=== PATIENT | male | born 1975 | race Caucasian/White ===

== ENCOUNTER 2018-01-04 08:07 | Day surgery (SDC) | payer OTHER, SELFPAY ==
[2018-01-03 09:19] VITALS: BMI 25.0
--- NOTE | 2018-01-04 17:42 | CL.D_ITS ---
Patient Name: BRANDAN TOLLIVER Study Date: 01/04/2018 Performing: Joshua Diaz MD Ht: 66.92 inches 170 cm : 1975 Wt: 160.94 lbs 73 kg Age: 42 Gender: male BSA: 1.84 PROCEDURE(S) PERFORMED [id number]/[id number]/LV CLINICAL PROFILE AND INDICATIONS Indications: Suspected CAD Heart Failure: None Stress/Imaging Standard Exercise Stress Test: Yes Result: Indeterminant CAD Presentations: No Sxs, no angina. CONCLUSIONS Non obstructive coronary arteries Normal LV size, wall motion,and systolic function RECOMMENDATIONS Medical therapy DESCRIPTION OF PROCEDURE The patient arrived to the procedure lab. The risks and benefits of the procedure as well as a full d escription of our services here and current unavailability of surgical backup were fully explained to the patient and/or their significant other prior to the catheterization. The Timeout was completed, verifying the correct patient and procedure. The patient's procedural site was prepped and draped in the usual fashion. Local anesthetic was given subcutaneously to right radial region with Lidocaine 2% . Using a modified Seldinger technique, arterial access was obtained via the right radial artery, a 6 Fr sheath was inserted. Right Coronary Artery selective angiography was then performed in multiple v iews using a 5 Fr. 4.0 [place] catheter. Left Coronary Artery selective angiography was performed in mu ltiple views using a 5 Fr. 4.0 [place] catheter. Left Ventriculography was performed in HEBERT projection using a 5 Fr. Pigtail catheter. LV to AO pullback pressures were then recorded.The arterial sheath wa s pulled and a TR Band was applied for hemostasis CORONARY ANGIOGRAPHY DOMINANCE: Right Dominant LEFT HEART ASSESSMENT Left Ventricular Ejection Fraction: by LV Gram 75 % Normal LV wall motion Normal Left Ventricular systolic function LEFT MAIN: Angiographically normal LEFT ANTERIOR DECENDING ARTERY: MID LAD: Myocardial bridging CIRCUMFLEX ARTERY: Angiographically normal RIGHT CORONARY ARTERY: Angiographically normal COMPLICATIONS No Complications PROCEDURE MEDICATIONS Versed 1 mg IV Fentanyl 50 mcg IV Versed 1 mg IV Versed 1 mg IV Aspirin (325mg) 1 Tabs PO @ 01/04/2018 08:22:48 Heparin diluted in 23cc Heparinized saline. Patient given 10cc IA of this solution. 01/04/2018 10:20: 03 Verapamil 2.5mg, Ntg 100mcgs, 2000 units of Heparin diluted in 23cc Heparinized saline. Patient give n 10cc IA of this solution. 01/04/2018 10:20:03 SUMMARY OF HEMODYNAMIC DATA Time AIR REST ECG 08:35:50 AO 91/67 (79) SA 10:22:48 LV 85/-1, 6 10:31:14 LV 101/-2, 5 10:31:20 LV 109/-10, 9 10:32:21 LV 111/-10, 10 10:32:28 LVp 107/-8, 12 10:32:32 AOp 101/59 (79) 10:32:37 Signed By Joshua Diaz MD On 01/04/2018 10:43:07 Joshua Diaz MD
== END 2018-01-04 13:50 | disposition home or self-care (01) ==
LOC: CLSP 08:08
PROVIDERS: Family Provider Internal Medicine; PCP Internal Medicine; Referring Provider Internal Medicine Cardiovascular Disease; Visit Provider Internal Medicine Cardiovascular Disease
DX: R94.31 Abnormal electrocardiogram [ECG] [EKG] (principal); E78.00 Pure hypercholesterolemia, unspecified; R06.09 Other forms of dyspnea
CPT/HCPCS: 93005; 93458; 99152; 99153; J7040; C1769; C1894; Q9967

== ENCOUNTER → 2018-02-20 06:48 | Outpatient (CLI) | payer OTHER, SELFPAY ==
--- NOTE | 2018-02-21 08:33 | PFT ---
INTRODUCTION: The patient is a 42-year-old male that presents for pulmonary function testing secondary to a diagnosis of exercise-induced bronchospasm. Respiratory therapy reports good patient effort. Bronchodilators were used during testing. INTERPRETATION: Forced expiration spirometry demonstrates no evidence of a large airways obstructive ventilatory defect. There was no significant response to aerosolized bronchodilators. Spirograms are of good quality and plateau normally. The respiratory flow volume loop appears normal. Body plethysmography was performed and reveals lung volumes to be within normal limits. Diffusing capacity is also within normal limits. IMPRESSION: Grossly normal pulmonary function testing.
== END ==
PROVIDERS: Family Provider Internal Medicine; PCP Internal Medicine; Referring Provider Internal Medicine Cardiovascular Disease; Visit Provider Internal Medicine Cardiovascular Disease
DX: J45.990 Exercise induced bronchospasm (principal)
CPT/HCPCS: 94060; 94726; 94729

== ENCOUNTER → 2018-03-13 06:52 | Outpatient (CLI) | payer OTHER, SELFPAY ==
--- NOTE | 2018-03-14 09:42 | BRONCHALL ---
Bronchoprovocation Challenge - Bronchoprovocation Challenge Bronchoprovocation Challenge: BRONCHOPROVOCATION STUDY INTERPRETATION Brief HPI: Patient is a 42 year old male, currently under the care of Dr. Olvera, who presents to [facility] for a bronchoprovocation study secondary to diagnosis of bronchospasm. Respiratory therapist reports good effort and reproducible results. Interpretation: Initial spirometry showed no large airways obstructive ventilatory defect. The patient was then given increasingly concentrated doses of methacholine in a stepwise fashion, using a modified ATS protocol. The patient?s maximum reduction in FEV1 was 3 percent predicted. Impression: Negative Bronchoprovocation study. This is NOT consistent with the diagnosis of asthma.
--- OUTSIDE RECORDS SUMMARY | 2018-04-29 02:17 | XMS RPT_ITS ---
:1975 Author Organization OHIP Support Name Relationship Address Phone MARY MEJIA Unavailable [address] + [place] [address] WOOCI Unavailable [address] + [place] [address] MEJIA, MARY Unavailable [address] + [place] [address] WOOCI Unavailable [address] + [place] [address] MEJIA, MARY Unavailable [address] + [place] [address] WOOCI Unavailable [address] + [place] [address] MEJIA, MARY Unavailable [address] + [place] [address] WOOCI Unavailable [address] + [place] [address] MEJIA, MARY Unavailable [address] + [place] [address] WOOCI Unavailable [address] + [place] [address] MEJIA, MARY Unavailable [address] + [place] [address] WOOCI Unavailable [address] + [place] [address] MEJIA, MARY Unavailable [address] + [place] [address] WOOCI Unavailable [address] + [place] [address] MEJIA, MARY Unavailable [address] + [place] [address] WOOCI Unavailable [address] + [place] [address] NILS MEJIAA Unavailable [address] + [place] [address] WOOCI Unavailable [address] + [place] [address] DOLLESA Unavailable [address] + [place] [address] WOOCI Unavailable [address] [facility] [address] + [place] [address] Care Team Providers Name Role Phone KAITY MALIK Attending Unavailable HELENA, KAITY E Referring Unavailable HELENA, KAITY E Referring Unavailable HELENA, KAITY E Referring Unavailable HELENA, KAITY E Referring Unavailable HELENA, KAITY E Attending Unavailable HELENA, KAITY E Referring Unavailable TALAMPAS, HARDIK D Attending Unavailable HELENA, KAITY E Referring Unavailable HELENA, KAITY E Referring Unavailable HELENA, KAITY E Attending Unavailable TALAMPAS, HARDIK D Referring Unavailable JOSEPH EDWARDS ([facility]) Referring Unavailable JOSEPH EDWARDS ([facility]) Attending Unavailable Robert Crandall Attending Unavailable Latisha Muse Referring Unavailable HumbertoMicha Attending Unavailable Talampas, Hardik Referring Unavailable Talampas, Hardik Primary Care Unavailable Micha Paul Attending Unavailable Talampas, Hardik Referring Unavailable Talampas, Hardik Primary Care Unavailable Emily, Joshua Attending Unavailable Emily, Joshua Referring Unavailable Talampas, Hardik Primary Care Unavailable ASSESSMENT, HEALTH RISK Attending Unavailable Talampas, Hardik Primary Care Unavailable Micha Paul Attending Unavailable Talampas, Hardik Referring Unavailable Emily, Columbia Attending Unavailable Emily, Columbia Referring Unavailable [place], Kaity Attending Unavailable [place], Kaity Referring Unavailable Talampas, Hardik Primary Care Unavailable Geoffrey Luciano D.O. Attending Unavailable Helean, Kaity Referring Unavailable Helena, Kaity Attending Unavailable [place], Kaity Referring Unavailable Talampas, Hardik Primary Care Unavailable PROBLEMS PROBLEMS DATE TYPE CONDITION / CODE ATTENDING STATUS SOURCE 03/22/2018 Unknown J45.990 - Exercise Robert Crandall Active [place] induced bronchospasm / Community J45.990(ICD-10) Hospital Repository 01/11/2018 Active Unknown / UNK(Unknown) TALAMPAS, HARDIK Active [facility] Main [place] Repository 01/25/2018 Unknown R94.31 - Abnormal EmilyJoshua fraser Active [place] electro[facility]ogram Community [ECG] [EKG] / Hospital R94.31(ICD-10) Repository 12/28/2017 Active Abnormal NA Active [facility] Main (ECG) (EKG) / [place] R94.31(ICD-10) Repository 12/28/2017 Active Other forms of dyspnea NA Active [facility] / R06.09(ICD-10) Clinic Main [place] Repository PROCEDURES PROCEDURES No Procedure Records FoundRESULTS RESULTS BRONCHOPROVOCATION CHALLENGE Observed: 03/15/2018 Status: F Source: [place] 6:02 AM [facility] REPOSITORY [facility] Pulmonary Services/Neurology [address] [place] [address] MR#: [id number] Acct: [id number] Name: BRANDAN MEJIA Rep #: [id number] : 1975 42 From: Robert Crandall MD Referring Dr: Helena ALARCONQuincy Status: REG I Ordering Dr: Date: Location: [facility] Sex: M C Bronchoprovocation Challenge - Bronchoprovocation Challenge Bronchoprovocation Challenge: BRONCHOPROVOCATION STUDY INTERPRETATION Brief HPI: Patient is a 42 year old male, currently under the care of Dr. Olvera, who presents to [facility] for a bronchoprovocation study secondary to diagnosis of bronchospasm. Respiratory therapist reports good effort and reproducible results. Interpretation: Initial spirometry showed no large airways obstructive ventilatory defect. The patient was then given increasingly concentrated doses of methacholine in a stepwise fashion, using a modified ATS protocol. The patient s maximum reduction in FEV1 was 3 percent predicted. Impression: Negative Bronchoprovocation study. This is NOT consistent with the diagnosis of asthma. 03/15/18601 <Electronically signed by Robert Crandall MD> Date Robert Crandall MD CC: Date Dictated: 03/14/18941 Date Transcribed: 03/14/18941 Linux Architect: AARON Signed PROGRESS Observed: 03/14/2018 Status: COMPLETED Source: [place] 10:09 AM [facility] REPOSITORY HNO ID: [id number] Author: Kaity Malik Service: (none) Author Type: Physician Type: Progress Notes Filed: 03/14/2018 2:46 PM Note Text: PERTINENT CARDIAC HISTORY LVH - septal HINDS Angina LAD bridge - mild HL ADHERENCE TO GUIDELINES DONY-I or ARB for HF with prior LVEF<40 (NQF 0081) - N/A ASA or Plavix for ASHD (NQF 0067) - N/A Beta александр for ASHD with prior AR or prior LVEF<40 (NQF 0070) - N/A Beta александр for HF with prior LVEF<40 (NQF 0083) - N/A DONY-I or ARB for ASHD with DM or prior LVEF<40 (NQF 0066) - N/A Statin therapy for ASHD or FHL or DM - met BMI documented and plan if >25 (NQF 0421) - lifestyle recommendation form Tobacco use screening and referral (NQF 0028) - lifestyle recommendation form Recommendation for whole food, plant based diet - lifestyle recommendation form CLINICAL IMPRESSION/PLAN: Brandan Mejia has exercised intolerance which is of uncertain etiology. There is no convincing evidence that he has reactive bronchospasm. He reports that he will be wearing a recirculating mask that has very little potential for leak. There is no convincing evidence for ischemia. I recommend that we consider his exercise intolerance to be unrecognized deconditioning. I've encouraged him to begin an aerobic training program and have released him to return to work without restriction. If his symptoms recur, pulmonary consultation may be helpful. I reminded him that he should have periodic Echocardiograms to assess his left ventricular septal hypertrophy. I recommend follow-up in our office in 8 months. Written and verbal health teaching given to patient, patient verbalizes understanding and agrees with treatment plan. DIAGNOSIS FOR VISIT: Exercise intolerance HISTORY OF PRESENT ILLNESS Brandan Mejia returns for follow-up of his exercise intolerance. He has undergone PFT and methacholine challenge. We have not yet received copies, but he reports he was told that the studies were normal. He would like to return to [employer]. He's had no symptoms of shortness of breath with moderate activity he is doing. He denies chest pain. He's had no orthopnea, edema, syncope, palpitations, TIAs, amaurosis or claudication. ALLERGIES: ALLERGIES No Known Allergies CURRENT OUTPATIENT MEDICATIONS: atorvastatin (LIPITOR) 10 mg tablet Take 0.5 tablets by mouth once daily. meloxicam (MOBIC) 7.5 mg tablet Take 1-2 tablets by mouth once daily. for pain. Take with food. PHYSICAL EXAMINATION: VITAL SIGNS: BP 126/83 Pulse 73 Wt 170 lb 14.4 oz (77.5kg) Chest: Clear to auscultation. Trachea is midline. Air entry is equal. Cardiac: Regular rhythm. S1 and S2 are normal. PMI is nondisplaced. There are no murmurs, rubs or gallops. Carotids are brisk without bruits. JVP is less than 10 cm. Abdomen: Soft and nontender. There are no pulsatile masses or bruits. No liver enlargement. Bowel sounds are active. Extremities: No edema. Pulses are intact and symmetrical. I reviewed all of his studies to date, including stress tests, angiogram and echocardiogram Electronically Signed: Kaity Malik MD March 14, 2018 10:09 AM CC: MD MAYRA Cornelius Observed: 03/14/2018 Status: COMPLETED Source: [place] 9:45 AM [facility] REPOSITORY Office Visit (CAWSTR) BRANDAN MEJIA ([id number]) 1975 M Date Time Provider Department 03/14/18 9:45 AM KAITY MALIK CAWSTR During your visit today, we recorded the following information about you: Pulse Blood pressure Weight 73/minute 126/83 77.5 kg Kaity Malik MD 03/14/2018 2:46 PM Signed PERTINENT CARDIAC HISTORY LVH - septal HINDS Angina LAD bridge - mild HL ADHERENCE TO GUIDELINES DONY-I or ARB for HF with prior LVEF<40 (NQF 0081) - N/A ASA or Plavix for ASHD (NQF 0067) - N/A Beta александр for ASHD with prior AR or prior LVEF<40 (NQF 0070) - N/A Beta александр for HF with prior LVEF<40 (NQ 0083) - N/A DONY-I or ARB for ASHD with DM or prior LVEF<40 (NQ 0066) - N/A Statin therapy for ASHD or FHL or DM - met BMI documented and plan if >25 (NQ 0421) - lifestyle recommendation form Tobacco use screening and referral ([facility] 0028) - lifestyle recommendation form Recommendation for whole food, plant based diet - lifestyle recommendation form CLINICAL IMPRESSION/PLAN: Brandan Mejia has exercised intolerance which is of uncertain etiology. There is no convincing evidence that he has reactive bronchospasm. He reports that he will be wearing a recirculating mask that has very little potential for leak. There is no convincing evidence for ischemia. I recommend that we consider his exercise intolerance to be unrecognized deconditioning. I've encouraged him to begin an aerobic training program and have released him to return to work without restriction. If his symptoms recur, pulmonary consultation may be helpful. I reminded him that he should have periodic Echocardiograms to assess his left ventricular septal hypertrophy. I recommend follow-up in our office in 8 months. Written and verbal health teaching given to patient, patient verbalizes understanding and agrees with treatment plan. DIAGNOSIS FOR VISIT: Exercise intolerance HISTORY OF PRESENT ILLNESS Brandan Mejia returns for follow-up of his exercise intolerance. He has undergone PFT and methacholine challenge. We have not yet received copies, but he reports he was told that the studies were normal. He would like to return to [employer]. He's had no symptoms of shortness of breath with moderate activity he is doing. He denies chest pain. He's had no orthopnea, edema, syncope, palpitations, TIAs, amaurosis or claudication. ALLERGIES: ALLERGIES No Known Allergies CURRENT OUTPATIENT MEDICATIONS: atorvastatin (LIPITOR) 10 mg tablet Take 0.5 tablets by mouth once daily. meloxicam (MOBIC) 7.5 mg tablet Take 1-2 tablets by mouth once daily. for pain. Take with food. PHYSICAL EXAMINATION: VITAL SIGNS: BP 126/83 Pulse 73 Wt 170 lb 14.4 oz (77.5kg) Chest: Clear to auscultation. Trachea is midline. Air entry is equal. Cardiac: Regular rhythm. S1 and S2 are normal. PMI is nondisplaced. There are no murmurs, rubs or gallops. Carotids are brisk without bruits. JVP is less than 10 cm. Abdomen: Soft and nontender. There are no pulsatile masses or bruits. No liver enlargement. Bowel sounds are active. Extremities: No edema. Pulses are intact and symmetrical. I reviewed all of his studies to date, including stress tests, angiogram and echocardiogram Electronically Signed: Kaity Malik MD March 14, 2018 10:09 AM CC: MD Kaity Cornelius MD 03/14/2018 10:09 AM Signed LIFESTYLE CHANGE A healthy lifestyle is the most important component of your overall treatment plan. Please give serious thought to the following areas and commit to making group home changes. EAT A WHOLE FOOD, PLANT BASED DIET The nutrition your body gets is more important than the medicine you take. What matters most is the overall way you eat. We encourage you to minimize the use of animal products (which include dairy and all meats except fatty fish) and use whole, unprocessed plant foods to provide your protein, vitamins and other nutrients. We have a lot of information to share with you on this topic. This is not a diet. It is a way of life that you will keep with you. EXERCISE REGULARLY It is not important to spend hours in the gym, lifting weights and perspiring heavily. A total of 2-3 hours per week of aerobic (causing you to be moderately short of breath) exercise is sufficient to improve your health. Talk to us before you begin a new exercise program, if you have heart disease or experience shortness of breath or chest pain. REDUCE STRESS Chronic emotional and physical stress leads to disease. Ways of reducing stress include meditation, visualization, prayer, yoga and other forms of relaxation therapy. Consistency is the ponce. Find a technique that works for you and do it every day. CULTIVATE RELATIONSHIPS Loneliness and isolation have a major negative impact on health. Seek out others who can love, care for and nurture you. Avoid hurtful relationships. MAINTAIN IDEAL BODY WEIGHT The best way to do this is to do all the things above. Our bodies naturally find the right weight if we keep moving and feed ourselves the right food. If your BMI is greater than 25, we strongly recommend a referral to a weight management program. Please speak to us or your family physician about available programs. AVOID NICOTINE IN ALL FORMS This includes all tobacco products, whether chewed, smoked, vaped, or rubbed on the skin. Smoking cessation programs, which can make use of tobacco substitutes, medications to suppress cravings and behavior management, are available. Please contact your family physician about programs in your area. Referring Provider: KAITY MALIK [[id number]] Allergies As of Date: 03/14/2018 (No Known Allergies) Date Reviewed: 03/14/2018 Reviewed by: Russel Madrid RN - Fully Assessed Reason for Visit: Recheck [92] Primary Visit Diagnosis:HINDS (dyspnea on exertion) [R06.09] Prescriptions as of 03/14/2018 Sig: ATORVASTATIN 10 MG TABLET Take 0.5 tablets by mouth onc* MELOXICAM 7.5 MG TABLET Take 1-2 tablets by mouth onc* Patient not taking: Reported on 12/28/2017 Problem List As Of Date 03/14/2018 Noted Resolved Lumbago [M54.5] INVALID FOR*07/14/2016 OTHER ATOPIC DERMATITIS [L20.89] More... ALLERGIC RHINITIS NOS [J30.9] More... Mixed hyperlipidemia [E78.2] INVALID FOR*04/14/2010 ANEMIA NORMOCYTIC [D64.9] INVALID FOR*07/14/2016 Porokeratosis [Q82.8] INVALID FOR*07/14/2016 Hypercholesterolemia [E78.00] INVALID FOR* More... Migraine without aura [G43.009] INVALID FOR*07/14/2016 Other instructions from your clinician: LIFESTYLE CHANGE A healthy lifestyle is the most important component of your overall treatment plan. Please give serious thought to the following areas and commit to making group home changes. EAT A WHOLE FOOD, PLANT BASED DIET The nutrition your body gets is more important than the medicine you take. What matters most is the overall way you eat. We encourage you to minimize the use of animal products (which include dairy and all meats except fatty fish) and use whole, unprocessed plant foods to provide your protein, vitamins and other nutrients. We have a lot of information to share with you on this topic. This is not a diet. It is a way of life that you will keep with you. EXERCISE REGULARLY It is not important to spend hours in the gym, lifting weights and perspiring heavily. A total of 2-3 hours per week of aerobic (causing you to be moderately short of breath) exercise is sufficient to improve your health. Talk to us before you begin a new exercise program, if you have heart disease or experience shortness of breath or chest pain. REDUCE STRESS Chronic emotional and physical stress leads to disease. Ways of reducing stress include meditation, visualization, prayer, yoga and other forms of relaxation therapy. Consistency is the ponce. Find a technique that works for you and do it every day. CULTIVATE RELATIONSHIPS Loneliness and isolation have a major negative impact on health. Seek out others who can love, care for and nurture you. Avoid hurtful relationships. MAINTAIN IDEAL BODY WEIGHT The best way to do this is to do all the things above. Our bodies naturally find the right weight if we keep moving and feed ourselves the right food. If your BMI is greater than 25, we strongly recommend a referral to a weight management program. Please speak to us or your family physician about available programs. AVOID NICOTINE IN ALL FORMS This includes all tobacco products, whether chewed, smoked, vaped, or rubbed on the skin. Smoking cessation programs, which can make use of tobacco substitutes, medications to suppress cravings and behavior management, are available. Please contact your family physician about programs in your area. Follow-up and Disposition History Recorded Letter Text Kaity Malik M.D. Department of Cardiology [address] [place] [id number] Brandan Mejia March 14, 2018 1975 To whom it may concern: Brandan Mejia is under my care and has been released to return to full duties, without restrictions. Sincerely, Kaity Malik MD Encounter Status:Closed by KAITY MALIK MD on 03/14/18 PULMONARY FUNCTION Observed: 02/21/2018 Status: F Source: [place] TEST 8:35 AM [facility] REPOSITORY [facility] Pulmonary Services/Neurology [address] [place] [address] MR#: [id number] Acct: [id number] Name: BRANDAN MEJIA Rep #: [id number] : 1975 42 From: Geoffrey Luciano DO Referring Dr: Kaity Malik MD Status: REG CLI Ordering Dr: Date: Location: PSN Sex: M C INTRODUCTION: The patient is a 42-year-old male that presents for pulmonary function testing secondary to a diagnosis of exercise-induced bronchospasm. Respiratory therapy reports good patient effort. Bronchodilators were used during testing. INTERPRETATION: Forced expiration spirometry demonstrates no evidence of a large airways obstructive ventilatory defect. There was no significant response to aerosolized bronchodilators. Spirograms are of good quality and plateau normally. The respiratory flow volume loop appears normal. Body plethysmography was performed and reveals lung volumes to be within normal limits. Diffusing capacity is also within normal limits. IMPRESSION: Grossly normal pulmonary function testing. 02/21/18834 <Electronically signed by Geoffrey Luciano DO> Date Geoffrey Luciano DO CC: Kaity Malik MD; Hardik Cerda MD Date Dictated: 02/21/18832 Date Transcribed: 02/21/18832 Linux Architect: STEPAN Machado [place] CARDIAC PERF Observed: 02/14/2018 Status: F Source: [place] STRESS/EXERCISE 10:10 AM [facility] REPOSITORY * * *Final Report* * * DATE OF EXAM: Feb 14 2018 10:10AM [facility] 0004 - [place] CARDIAC PERF STRESS/EXERCISE / PROCEDURE REASON: Exercise induced bronchospasm [J45.990] * * * * Physician Interpretation * * * * PATIENT: Name: BRANDAN MEJIA Age: 42 years Gender: M CONCLUSIONS: 1. SPECT Perfusion Study: Normal. 2. There is no scintigraphic evidence for inducible ischemia. 3. No evidence of scarred myocardium. 4. Good functional capacity for age and gender. 5. Left ventricle is normal in size. The left ventricle systolic function is normal. 6. Right ventricle is normal in size. The right ventricle systolic function is normal. 7. This is a low risk scan. Gated Stress FBP LVEF % 79 Prior Study Comparison No prior nuclear cardiology exam available for comparison. Nuclear Med Report:1-Day [id number] Exercise Stress Gated SPECT: Myocardial perfusion imaging was performed at rest 30 to 60 minutes following the IV injection of Tc-99m tetrofosmin. One minute prior to peak exercise, the patient was injected IV with Tc-99m tetrofosmin. Gated post stress tomographic imaging was performed 10 to 20 minutes later. See administered doses below. [facility] Date of service: 02/14/2018 8:05:54 AM Ordering Physician: Requesting Physician: KAITY MALIK Indication: CP - ECG interpretable AND able to exercise with interm/high pre-test probability and Assessment for suspected CAD. Interpreting physician: Chema Liz MD Patient History: History of dyslipidemia. Medications currently taking are statins. Height: 170.18 cm BSA: 1.92 m? Weight: 78.02 kg BMI: 26.9 kg/m? CT Dose Reduction Employed: No. Exam Type: Rest Stress Radiopharm: Tc-99m Tetrofosmin Tc-99m Tetrofosmin Dosage(mCi): 11.9 32.0 Atten Correction: not performed not performed Stress Agent: Treadmill Resting Heart Rate: 76 bpm Resting Blood Press: 125/76 mmHg Image Quality The overall study imaging quality was deemed to be good. FINDINGS: Left Ventricle Wall Motion: Stress IR:3D - All scored segments are normal. Rest IR:3D - Gated Stress FBP - Reversibility - Stress IR:3D Stress IR:3D Gated Stress FBP LVEF: 79 % ED Volume: 75 ml ES Volume: 16 ml TID: 0.88 Perfusion Findings Stress IR:3D - Summed Score=0 All scored segments reflect normal perfusion. Rest IR:3D - Summed Score=0 All scored segments reflect normal perfusion. Stress IR:3D Rest IR:3D Summed Score=0 Summed Score=0 LEFT VENTRICLE The left ventricle is normal in size. Left ventricular systolic function is normal. Right Ventricle The right ventricle is normal in size. Right ventricle systolic function is normal. Stress Test Findings: There is no scintigraphic evidence for inducible ischemia. There is no evidence of scarring. The stress test was terminated due to the following: Fatigue. Peak HR 176 bpm. (100 % MPHR) (13.7 METS) Peak BP 178 mmHg/80 mmHg Patient experienced no symptoms during stress. Stress ECG normal ST segment response. Stress complications: none. The left ventricular cavity size is unchanged with stress. Final Linux Architect: ALVARO Transcribe Date/Time: Feb 14 2018 8:05A Dictated by : CHEMA LIZ MD This examination was interpreted and the report reviewed and electronically signed by: CHEMA LIZ MD on Feb 14 2018 10:51AM EST [id number] Observed: 02/14/2018 Status: COMPLETED Source: [place] 10:01 AM [facility] REPOSITORY HNO ID: [id number] Author: Pati Knight (Rcep) Service: (none) Author Type: Production Line Mechanic Type: Progress Notes Filed: 02/14/2018 10:02 AM Note Text: Preliminary report complete; results under imaging tab. JORGE Alvarez CNNURSE Observed: 02/14/2018 Status: COMPLETED Source: [place] 9:30 AM [facility] REPOSITORY Nurse Visit (CAWSTR) BRANDAN MEJIA ([id number]) 1975 M Date Time Provider Department 02/14/18 9:30 AM [facility] During your visit today, we recorded the following information about you: JORGE Alvarez 02/14/2018 10:02 AM Signed Preliminary report complete; results under imaging tab. JORGE Alvarez Referring Provider: KAITY MALIK [[id number]] Allergies As of Date: 02/14/2018 (No Known Allergies) Date Reviewed: 01/16/2018 Reviewed by: Russel Madrid RN - Fully Assessed Primary Visit Diagnosis:Chest pain, unspecified type [R07.9] Other Visit Diagnosis:HINDS (dyspnea on exertion) [R06.09] Prescriptions as of 02/14/2018 Sig: ATORVASTATIN 10 MG TABLET Take 0.5 tablets by mouth onc* MELOXICAM 7.5 MG TABLET Take 1-2 tablets by mouth onc* Patient not taking: Reported on 12/28/2017 Problem List As Of Date 02/14/2018 Noted Resolved Lumbago [M54.5] INVALID FOR*07/14/2016 OTHER ATOPIC DERMATITIS [L20.89] More... ALLERGIC RHINITIS NOS [J30.9] More... Mixed hyperlipidemia [E78.2] INVALID FOR*04/14/2010 ANEMIA NORMOCYTIC [D64.9] INVALID FOR*07/14/2016 Porokeratosis [Q82.8] INVALID FOR*07/14/2016 Hypercholesterolemia [E78.00] INVALID FOR* More... Migraine without aura [G43.009] INVALID FOR*07/14/2016 Encounter Status:Closed by Pati ARREDONDO on 02/14/18 PROGRESS Observed: 02/14/2018 Status: COMPLETED Source: [place] 8:36 AM [facility] REPOSITORY [facility] ID: [id number] Author: Brandan Christianson [place] Hospital Service: (none) Author Type: (none) Type: Progress Notes Filed: 02/14/2018 9:48 AM Note Text: RADIOLOGY SERVICE PROGRESS NOTE SERVICE DATE: 02/14/2018 SERVICE TIME: 8:36 AM PATIENT IDENTITY VERIFICATION COMPLETED USING TWO (2) METHODS: Patient confirmed name and Date of verbally. PATIENT GENDER DATA: .male : No ALLERGIES: Reviewed and unchanged MEDICATIONS REVIEWED: No PATIENT RELEVANT IMPLANT DATA REVIEWED: Not Applicable CREATININE: Creatinine Date Value Ref Range Status 12/28/2017 0.96 0.73 - 1.22 mg/dL Final 07/06/2016 0.95 0.73 - 1.22 mg/dL Final eGFR-All Other Races Date Value Ref Range Status 12/28/2017 >60 . Final Comment: eGFR (Estimated GFR) Units of measure: mL/min/1.73 meters squared eGFR is derived from the reexpressed MDRD Study equation using the following parameters: serum creatinine, age, gender and race. The creatinine assay has been calibrated to be traceable to IDMS. An eGFR <60 mL/min/1.73m2 for >3 months is consistent with chronic kidney disease. Refer to KDOQI guidelines for clinical interpretation. In patients with unstable renal function, e.g. those with acute kidney injury, the eGFR may not accurately reflect actual GFR. eGFR- Date Value Ref Range Status 12/28/2017 >60 Final P.O.C.T. RESULTS: N/A February 14, [address] PERFORMED: No IV SITE: Ambulatory: A peripheral IV was started in the Right antecubital site with a Angio cath: 22 gauge. POST EXAM PIV STATUS: Discontinued PROCEDURE TYPE: NM Stress: 11.9mCi Ma19h-Kffcidl was administered IV for Rest Imaging at 08:35. 32.0 mCi Qi59s-Nleogxq was administered IV for Stress Imaging at 09:47 by Brandan Christianson [facility]. PATIENT DISCHARGED TO: Ambulatory patient, left NM department area. A Diagnostic radioactive procedure has taken place, with no further precautions necessary other than routine body substance precautions. More information regarding radiation safety can be found using this link: [email or web address] SIGNATURE: Brandan Christianson [facility] PATIENT NAME: Brandan Mejia DATE: February 14, 2018 TIME: 8:36 AM PAGER/CONTACT #: [id number] Observed: 02/14/2018 Status: COMPLETED Source: [place] 12:00 AM [facility] REPOSITORY Telephone (CAWSTR) BRANDAN MEJIA ([id number]) 1975 M Date Time Provider Department 02/14/18 KAITY MALIK During your visit today, we recorded the following information about you: Russel Madrid RN 02/14/2018 1:22 PM Signed ----- Message from Kaity Malik sent at 02/14/2018 1:17 PM EST ----- Stress test shows no evidence that the minor blood vessel kink on the front of the heart causes any problem with circulation. Has he had his pulmonary function study yet? Please make follow-up appointment for one month MD Russel Ashley RN 02/14/2018 1:29 PM Signed Patient notified of results and provider's instructions. Patient verbalizes understanding. Pulmonary study was done yesterday. Transferred pt to schedule follow up in 1 month Russel Madrid RN 02/15/2018 3:21 PM Signed Left message to call office. 02/15/2018 3:21 PM Russel Madrid RN 02/18/2018 9:44 AM Signed Pt is at [facility] having pulmonary testing today Russel Malik MD 02/20/2018 4:12 PM Signed Please request copy of report ;MD Russel Ashley RN 02/22/2018 8:35 AM Signed Pulmonary report placed in box to review Russel aMdrid RN 02/22/2018 3:27 PM Signed Called [facility] pulmonary dept, per tech pt needs to schedule for methacholine testing. Per tech the pulmonary testing pt has completed and methacholine testing are completed on 2 different visits. The order is in the computer and ready, pt should call scheduling at [phone]. Russel Madrid RN 02/22/2018 3:28 PM Signed Patient notified he needs to call [facility] to schedule methacholine testing at [phone]. Patient verbalizes understanding. Russel Malik MD 02/25/2018 10:33 AM Signed Noted. Kaity Malik MD Allergies As of Date: 02/14/2018 (No Known Allergies) Date Reviewed: 01/16/2018 Reviewed by: Russel Madrid RN - Fully Assessed Reason for Visit: Results [95] Prescriptions as of 02/14/2018 Sig: ATORVASTATIN 10 MG TABLET Take 0.5 tablets by mouth onc* MELOXICAM 7.5 MG TABLET Take 1-2 tablets by mouth onc* Patient not taking: Reported on 12/28/2017 Problem List As Of Date 02/14/2018 Noted Resolved Lumbago [M54.5] INVALID FOR*07/14/2016 OTHER ATOPIC DERMATITIS [L20.89] More... ALLERGIC RHINITIS NOS [J30.9] More... Mixed hyperlipidemia [E78.2] INVALID FOR*04/14/2010 ANEMIA NORMOCYTIC [D64.9] INVALID FOR*07/14/2016 Porokeratosis [Q82.8] INVALID FOR*07/14/2016 Hypercholesterolemia [E78.00] INVALID FOR* More... Migraine without aura [G43.009] INVALID FOR*07/14/2016 Encounter Status:Closed by RUSSEL MADRID RN on 02/18/18 OFFICE VISIT REPORT Observed: 01/22/2018 Status: F Source: [place] 7:46 AM [place] [address] [place] [place] [address] OFFICE VISIT Date of Service: 01/21/18 MR#: [id number] Acct: [id number] Patient: BRANDAN MEJIA Rep #: [id number] : 1975 Provider: Micha TORRES Age/Sex: 42/M Location: [facility] Status: Signed Intake Vital Signs01/21/18 Height 5 ft 8 in 01/21/18 Weight: 175 lb Intake Visit Reasons: WFD PHYSICAL Allergies No Known Allergies Allergy (Verified 04/11/16 12:58) Medications Atorvastatin Calcium [Lipitor] 10 mg PO QHS 04/11/16 [History Confirmed 01/03/18] clopidogrel 75 mg tablet 75 mg PO DAILY #30 tab 12/31/17 [Rx Confirmed 01/04/18] Meloxicam 7.5 mg PO DAILY 01/03/18 [History Confirmed 01/03/18] Office Procedures PPD Procedure TB Med Used: Tuberculin PPD 5 tub. unit/0.1 mL intradermal injection solution was administered Lot number: [id number] Sports Photographer: Sanofi Pasteur date: 05/15/20 PPD Location: Left forearm Date PPD Placed: 01/21/18 Time PPD Placed: 08:00 PPD Placed By: Linsey Peres Office Meds Flucelvax Quad [id number] (PF) Performing Provider: MELISSA Vallejo Administered by: Linsey Peres on 01/21/18 14:18 Dose Route Admin Location Lot Number Expiration Date NDC Sports Photographer 60 mcg IM R deltoid [id number] 09/29/18 04670-759-65 SEQIRUS Assessment AND Plan Orders Orders: Medications Discontinued: Flucelvax Quad 0514-1711 (PF) (flu vac qs 2018(4 60 mcg (0.5 mL) IM ONCE 0.5 mL 0RF NS Z23 yr up)CD(PF)) Discontinued Reason: Office Med ication has been Documented as given 01/22/18 0746 <Electronically signed by Micha TORRES> Date Micha TORRES Cosigner Signature: Date (if applicable) CC: URINALYSIS, ROUTINE Collected: 01/21/2018 Status: F Source: [place] (DIPSTICK) 9:20 AM [facility] REPOSITORY Order Comment: How was Urine Obtained? CLEAN CATCH TYPE CODE TESTS RESULT OUT OF RANGE REFERENCE UNITS LAB L400.3000 Yellow COLOR Normal Yellow LAB L400.3050 Clear Normal CLARITY Clear LAB L400.3200 Normal mg/dl Normal GLUCOSE, UR Normal LAB L400.3300 Negative mg/dL Normal BILIRUBIN URINE Negative LAB L400.3400 Negative mg/dl Normal KETONE UR Negative LAB L400.3465 1.002-1.030 Normal SP.GR. DIPSTX 1.005 LAB L400.3550 5.0 - 8.0 pH UR Normal 7.0 LAB L400.3600 Negative mg/dl PROT Normal DIPSTX Negative LAB L400.3700 Normal mg/dl Normal UROBILI Normal LAB L400.3750 Negative Normal NITRITE UR Negative LAB L400.3780 Negative /ul Normal OCCULT BLOOD-UR Negative LAB L400.3800 Negative /ul LEUK Normal ESTERASE Negative Performed By: #### L400.2010 #### [facility] [address] [place], [place], [address] CBC W/DIFF, AUTOMATED Collected: 01/21/2018 Status: F Source: [place] 9:20 AM [facility] REPOSITORY TYPE CODE TESTS RESULT OUT OF RANGE REFERENCE UNITS LAB L100.1000 4.4-11.0 K/mm3 Normal WBC 4.8 LAB L100.1200 4.6-6.2 M/mm3 Normal RBC 4.76 LAB L100.1300 13.0-16.5 g/dl Normal HGB 13.0 LAB L100.1400 40-54 % Normal HCT 40.9 LAB L100.1500 80-94 fL Normal MCV 85.9 LAB L100.1600 27.0-32.0 pg Normal MCH 27.3 LAB L100.1700 32-36 g/gl Low MCHC 31.8 LAB L100.1810 11.6-14.6 % Normal RDW CV 13.4 LAB L100.1820 35.1-43.9 fl Normal RDW SD 42.0 LAB L100.1900 150-450 K/mm3 Normal PLT 287 LAB L100.2000 6.2-12.0 fl Normal MPV 10.3 LAB L100.2100 47-70 % Normal NEUT% 58.2 LAB L100.2200 19-41 % Normal LY% 27.5 LAB L100.2300 0-10 % High MONO% 10.8 LAB L100.2400 0-5 % Normal EO% 3.1 LAB L100.2500 0-1 % Normal BASO% 0.2 LAB L100.2550 0.0-0.9 % Normal IM GRAN % 0.200 Result Comment: IG% - Immature Granulocytes (promyelocytes, myelocytes and metamyelocytes) > 1% indicates that a LEFT SHIFT is Present. LAB L100.2620 2.0-7.7 X10 3/uL Normal Absolute Neut 2.8 LAB L100.2720 0.83-4.51 X10 3/ul Normal Absolute Lymph 1.32 Performed By: #### L100.0100 #### [facility] [address] [place], [place], [address] BASIC METABOLIC Collected: 01/21/2018 Status: F Source: [place] PROFILE (BMP) 9:20 AM [facility] REPOSITORY TYPE CODE TESTS RESULT OUT OF RANGE REFERENCE UNITS LAB L501.0100 74-106 mg/dL Normal GLU 85 Result Comment: Please note revised GLUCOSE reference range effective 2017. LAB L501.1000 7-18 mg/dL Normal BUN 13 LAB L501.1100 0.70-1.30 mg/dL Normal CREAT,SERUM 0.94 Result Comment: The validity of the calculated GFR AND GFRAA in patients over 70 years has not been determined. Clinical correlation is essential. LAB L501.1110 >60 mL/min Normal EST GFR 93 Result Comment: Non- GFR Calc LAB L501.1115 >60 mL/min Normal EST GFR - AA 113 Result Comment: GFR Calc LAB L501.1300 10-20 RATIO Normal BUN/CRE 13.9 LAB L501.2200 8.5-10.1 mg/dL CA Normal 9.1 LAB L501.5300 136-145 mmol/L NA Normal 139 LAB L501.5600 3.5-5.1 mmol/L K Normal 4.0 LAB L501.5900 98-107 mmol/L CL Normal 102 LAB L501.6100 21.0-32.0 mmol/L Normal CO2 30.0 LAB L501.6200 5-15 Normal GAP 7 Performed By: #### L500.2500, L500.4100, L501.9910 #### [facility] [address] [place], [address] LIPID PROFILE Collected: 01/21/2018 Status: F Source: [place] 9:20 AM [facility] REPOSITORY TYPE CODE TESTS RESULT OUT OF RANGE REFERENCE UNITS LAB L501.4900 200 mg/dL Normal CHOL 152 Result Comment: <200 mg/dL Desirable 200-240 mg/dL Borderline >240 mg/dL High Risk LAB L501.5000 mg/dL Normal TRIG 131 Result Comment: The drugs N-Acetylcysteine and Metamizole may falsely depress this assay. Serum Triglycerides Reference Interval Normal <150 mg/dL Borderline high 150 - 199 mg/dL High 200 - 499 mg/dL Very High > or = 500 mg/dL LAB L501.6400 mg/dL Normal HDL 47 Result Comment: The drugs N-Acetylcysteine and Metamizole may falsely depress this assay. Reference Range HDL <40 mg/dL Low HDL Cholesterol HDL >or= 60 mg/dL High HDL Cholesterol LAB L501.6500 0-130 mg/dL Normal LDL 79 LAB L501.6600 5-40 mg/dL Normal VLDL 26 Performed By: #### L500.2500, L500.4100, L501.9910 #### [facility] [address] [place], [address] PSA,TOTAL - ANNUAL Collected: 01/21/2018 Status: F Source: [place] SCREEN 9:20 AM [facility] REPOSITORY TYPE CODE TESTS RESULT OUT OF RANGE REFERENCE UNITS LAB L501.9910 0.00-4.00 ng/mL Normal PSA,TOT 0.54 SCREEN Result Comment: This test was performed using the TPSA assay method for the kaleo chemistry system. Values obtained with different assay methods cannot be used interchangably. When changing PSA assays in the course of monitoring a patient, additional sequential testing should be carried out to confirm baseline values. Performed By: #### L500.2500, L500.4100, L501.9910 #### [facility] [address] [place], [place], [address] ABO RH BLOOD TYPE, Collected: 01/21/2018 Status: F Source: [place] PATIENT 9:20 AM [facility] REPOSITORY TYPE CODE TESTS RESULT OUT OF RANGE REFERENCE UNITS LAB B10.0800 AB Normal BLOOD POSITIVE TYPE GEL Performed By: #### B10.0010 #### [facility] [address] [place], [place], [address] PROGRESS Observed: 01/16/2018 Status: COMPLETED Source: [place] 1:49 PM [facility] REPOSITORY O ID: [id number] Author: Kaity Malik Service: (none) Author Type: Physician Type: Progress Notes Filed: 01/16/2018 5:42 PM Note Text: PERTINENT CARDIAC HISTORY LVH - septal HINDS Angina HL ADHERENCE TO GUIDELINES DONY-I or ARB for HF with prior LVEF<40 (NQF 0081) - N/A ASA or Plavix for ASHD (NQF 0067) - N/A Beta александр for ASHD with prior AR or prior LVEF<40 (NQF 0070) - N/A Beta александр for HF with prior LVEF<40 (NQF 0083) - N/A DONY-I or ARB for ASHD with DM or prior LVEF<40 (NQF 0066) - N/A Statin therapy for ASHD or FHL or DM - met BMI documented and plan if >25 (NQF 0421) - lifestyle recommendation form Tobacco use screening and referral (NQF 0028) - lifestyle recommendation form Recommendation for whole food, plant based diet - lifestyle recommendation form CLINICAL IMPRESSION/PLAN: Brandan Mejia has exercise intolerance and chest discomfort which occur at maximum physical 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 He has an area of systolic coronary artery narrowing. Had we done an imaging stress test we could have evaluated whether this has the potential of causing any ischemia. However, he just had a non-imaging stress test. I recommended we proceed with treadmill nuclear stress test. I would like to see him achieve 17-18 mets of activity and have normal perfusion to the anterior wall. It is possible that he has some exercise induced asthma or possibly asthma related to smoking inhalation. He will be scheduled for pulmonary function studies with methacholine challenge if baseline study is normal. He has mild concentric LVH with some septal prominence. This has not changed qualitatively over the last 10 years, but we discussed the possibility that he has an early form of hypertrophic myopathy. I've recommended that he have a follow-up echocardiogram in a few years. There was no evidence of dynamic outflow tract obstruction at the time of his echo. I personally performed Valsalva maneuver with him while we were taking supplemental echo pictures. Should there be evidence of progressive LVH, MRI scan may have some utility. I will see him on a to be arranged basis pending the outcome of these studies. 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 Written and verbal health teaching given to patient, patient verbalizes understanding and agrees with treatment plan. DIAGNOSIS FOR VISIT: Dyspnea on exertion Chest pain HISTORY OF PRESENT ILLNESS Brandan Mejia returns for follow-up of his recent angiogram. This disclosed patent coronaries. There was a small area of apparent systolic coronary artery narrowing in the mid LAD. The impingement did not exceed 30-50%. He has avoided extreme exertion. He is doing some exercise and tolerating this well. 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 He denies chest discomfort with moderate activity. He's had no orthopnea, edema, syncope, palpitations, TIAs, amaurosis or claudication. ALLERGIES: ALLERGIES No Known Allergies CURRENT OUTPATIENT MEDICATIONS: atorvastatin (LIPITOR) 10 mg tablet Take 1 tablet by mouth once daily. meloxicam (MOBIC) 7.5 mg tablet Take 1-2 tablets by mouth once daily. for pain. Take with food. PHYSICAL EXAMINATION: VITAL SIGNS: BP 131/84 Pulse 82 Wt 172 lb (78.0kg) Chest: Clear to auscultation. Trachea is midline. Air entry is equal. Cardiac: Regular rhythm. S1 and S2 are normal. PMI is nondisplaced. There are no murmurs, rubs or gallops. Carotids are brisk without bruits. JVP is less than 10 cm. Abdomen: Soft and nontender. There are no pulsatile masses or bruits. No liver enlargement. Bowel sounds are active. Extremities: No edema. Pulses are intact and symmetrical. Recent angiogram films were reviewed. He was reminded that he had his typical symptoms at peak exercise on his ETT. There were some nonspecific T wave changes but no ST depression. Electronically Signed: Kaity Malik MD January 16, 2018 1:49 PM CC: Hardik Cerda MD CNOV Observed: 01/16/2018 Status: COMPLETED Source: [place] 1:15 PM [facility] REPOSITORY Office Visit (CAWSTR) BRANDAN MEJIA ([id number]) 1975 M Date Time Provider Department 01/16/18 1:15 PM KAITY MALIK CAWSTR During your visit today, we recorded the following information about you: Pulse Blood pressure Weight 82/minute 131/84 78 kg Kaity Malik MD 01/16/2018 1:47 PM Signed LIFESTYLE CHANGE A healthy lifestyle is the most important component of your overall treatment plan. Please give serious thought to the following areas and commit to making group home changes. EAT A WHOLE FOOD, PLANT BASED DIET The nutrition your body gets is more important than the medicine you take. What matters most is the overall way you eat. We encourage you to minimize the use of animal products (which include dairy and all meats except fatty fish) and use whole, unprocessed plant foods to provide your protein, vitamins and other nutrients. We have a lot of information to share with you on this topic. This is not a diet. It is a way of life that you will keep with you. EXERCISE REGULARLY It is not important to spend hours in the gym, lifting weights and perspiring heavily. A total of 2-3 hours per week of aerobic (causing you to be moderately short of breath) exercise is sufficient to improve your health. Talk to us before you begin a new exercise program, if you have heart disease or experience shortness of breath or chest pain. REDUCE STRESS Chronic emotional and physical stress leads to disease. Ways of reducing stress include meditation, visualization, prayer, yoga and other forms of relaxation therapy. Consistency is the ponce. Find a technique that works for you and do it every day. CULTIVATE RELATIONSHIPS Loneliness and isolation have a major negative impact on health. Seek out others who can love, care for and nurture you. Avoid hurtful relationships. MAINTAIN IDEAL BODY WEIGHT The best way to do this is to do all the things above. Our bodies naturally find the right weight if we keep moving and feed ourselves the right food. If your BMI is greater than 25, we strongly recommend a referral to a weight management program. Please speak to us or your family physician about available programs. AVOID NICOTINE IN ALL FORMS This includes all tobacco products, whether chewed, smoked, vaped, or rubbed on the skin. Smoking cessation programs, which can make use of tobacco substitutes, medications to suppress cravings and behavior management, are available. Please contact your family physician about programs in your area. Kaity Malik MD 01/16/2018 5:42 PM Signed PERTINENT CARDIAC HISTORY LVH - septal HINDS Angina HL ADHERENCE TO GUIDELINES DONY-I or ARB for HF with prior LVEF<40 (NQF 0081) - N/A ASA or Plavix for ASHD (NQF 0067) - N/A Beta александр for ASHD with prior AR or prior LVEF<40 (NQF 0070) - N/A Beta александр for HF with prior LVEF<40 (NQF 0083) - N/A DONY-I or ARB for ASHD with DM or prior LVEF<40 (NQF 0066) - N/A Statin therapy for ASHD or FHL or DM - met BMI documented and plan if >25 (NQF 0421) - lifestyle recommendation form Tobacco use screening and referral (NQF 0028) - lifestyle recommendation form Recommendation for whole food, plant based diet - lifestyle recommendation form CLINICAL IMPRESSION/PLAN: Brandan Mejia has exercise intolerance and chest discomfort which occur at maximum physical 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 He has an area of systolic coronary artery narrowing. Had we done an imaging stress test we could have evaluated whether this has the potential of causing any ischemia. However, he just had a non-imaging stress test. I recommended we proceed with treadmill nuclear stress test. I would like to see him achieve 17-18 mets of activity and have normal perfusion to the anterior wall. It is possible that he has some exercise induced asthma or possibly asthma related to smoking inhalation. He will be scheduled for pulmonary function studies with methacholine challenge if baseline study is normal. He has mild concentric LVH with some septal prominence. This has not changed qualitatively over the last 10 years, but we discussed the possibility that he has an early form of hypertrophic myopathy. I've recommended that he have a follow-up echocardiogram in a few years. There was no evidence of dynamic outflow tract obstruction at the time of his echo. I personally performed Valsalva maneuver with him while we were taking supplemental echo pictures. Should there be evidence of progressive LVH, MRI scan may have some utility. I will see him on a to be arranged basis pending the outcome of these studies. 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 Written and verbal health teaching given to patient, patient verbalizes understanding and agrees with treatment plan. DIAGNOSIS FOR VISIT: Dyspnea on exertion Chest pain HISTORY OF PRESENT ILLNESS Brandan Mejia returns for follow-up of his recent angiogram. This disclosed patent coronaries. There was a small area of apparent systolic coronary artery narrowing in the mid LAD. The impingement did not exceed 30-50%. He has avoided extreme exertion. He is doing some exercise and tolerating this well. 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 He denies chest discomfort with moderate activity. He's had no orthopnea, edema, syncope, palpitations, TIAs, amaurosis or claudication. ALLERGIES: ALLERGIES No Known Allergies CURRENT OUTPATIENT MEDICATIONS: atorvastatin (LIPITOR) 10 mg tablet Take 1 tablet by mouth once daily. meloxicam (MOBIC) 7.5 mg tablet Take 1-2 tablets by mouth once daily. for pain. Take with food. PHYSICAL EXAMINATION: VITAL SIGNS: BP 131/84 Pulse 82 Wt 172 lb (78.0kg) Chest: Clear to auscultation. Trachea is midline. Air entry is equal. Cardiac: Regular rhythm. S1 and S2 are normal. PMI is nondisplaced. There are no murmurs, rubs or gallops. Carotids are brisk without bruits. JVP is less than 10 cm. Abdomen: Soft and nontender. There are no pulsatile masses or bruits. No liver enlargement. Bowel sounds are active. Extremities: No edema. Pulses are intact and symmetrical. Recent angiogram films were reviewed. He was reminded that he had his typical symptoms at peak exercise on his ETT. There were some nonspecific T wave changes but no ST depression. Electronically Signed: Kaity Malik MD January 16, 2018 1:49 PM CC: Hardik Cerda MD Referring Provider: KAITY MALIK [[id number]] Allergies As of Date: 01/16/2018 (No Known Allergies) Date Reviewed: 01/16/2018 Reviewed by: Russel Madrid RN - Fully Assessed Reason for Visit: Recheck [92] Primary Visit Diagnosis:Exercise induced bronchospasm [J45.990] Other Visit Diagnoses:HINDS (dyspnea on exertion) [R06.09] Chest pain, unspecified type [R07.9] Order(s):METHACHOLINE CHALLENGE [4326407] Order #: [id number] FUTURE SPIROMETRY WITH DILATOR IF OBSTRUCTED [7927578] Order #: [id number] FUTURE LUNG DIFFUSION CAPACITY (DLCO) [7224860] Order #: [id number] FUTURE LUNG VOLUMES [1003794] Order #: [id number] FUTURE EXERCISE STRESS W/NUC IMAGING [5296346] Order #: [id number]: 1 NM CARDIAC PERF STRESS/EXERCISE [3355731] Order #: [id number] IV START - SPECIFY [2036571] Order #: [id number]: 1 IV DISCONTINUE [8031352] Order #: [id number]: 1 atorvastatin (LIPITOR) 10 mg tabletTake 0.5 tablets by mouth once daily.Disp: 90 tabletRfl: 3 Prescriptions as of 01/16/2018 Sig: ATORVASTATIN 10 MG TABLET Take 0.5 tablets by mouth onc* MELOXICAM 7.5 MG TABLET Take 1-2 tablets by mouth onc* Patient not taking: Reported on 12/28/2017 Problem List As Of Date 01/16/2018 Noted Resolved Lumbago [M54.5] INVALID FOR*07/14/2016 OTHER ATOPIC DERMATITIS [L20.89] More... ALLERGIC RHINITIS NOS [J30.9] More... Mixed hyperlipidemia [E78.2] INVALID FOR*04/14/2010 ANEMIA NORMOCYTIC [D64.9] INVALID FOR*07/14/2016 Porokeratosis [Q82.8] INVALID FOR*07/14/2016 Hypercholesterolemia [E78.00] INVALID FOR* More... Migraine without aura [G43.009] INVALID FOR*07/14/2016 Other instructions from your clinician: LIFESTYLE CHANGE A healthy lifestyle is the most important component of your overall treatment plan. 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 EAT A WHOLE FOOD, PLANT BASED DIET The nutrition your body gets is more important than the medicine you take. What matters most is the overall way you eat. We encourage you to minimize the use of animal products (which include dairy and all meats except fatty fish) and use whole, unprocessed plant foods to provide your protein, vitamins and other nutrients. We have a lot of information to share with you on this topic. This is not a diet. It is a way of life that you will keep with you. EXERCISE REGULARLY It is not important to spend hours in the gym, lifting weights and perspiring heavily. A total of 2-3 hours per week of aerobic (causing you to be moderately short of breath) exercise is sufficient to improve your health. Talk to us before you begin a new exercise program, if you have heart disease or experience shortness of breath or chest pain. REDUCE STRESS Chronic emotional and physical stress leads to disease. Ways of reducing stress include meditation, visualization, prayer, yoga and other forms of relaxation therapy. Consistency is the ponce. Find a technique that works for you and do it every day. CULTIVATE RELATIONSHIPS Loneliness and isolation have a major negative impact on health. Seek out others who can love, care for and nurture you. Avoid hurtful relationships. MAINTAIN IDEAL BODY WEIGHT The best way to do this is to do all the things above. Our bodies naturally find the right weight if we keep moving and feed ourselves the right food. If your BMI is greater than 25, we strongly recommend a referral to a weight management program. Please speak to us or your family physician about available programs. AVOID NICOTINE IN ALL FORMS This includes all tobacco products, whether chewed, smoked, vaped, or rubbed on the skin. Smoking cessation programs, which can make use of tobacco substitutes, medications to suppress cravings and behavior management, are available. Please contact your family physician about programs in your area. Prescriptions ordered this encounter Disp Refills Start End ATORVASTATIN 10 MG TABLET 90 t* 3 01/16/2018 Class: Med Update Route: ORAL Sig: Take 0.5 tablets by mouth once daily. Medications Discontinued During This Encounter atorvastatin (LIPITOR) 10 mg tablet 90 t* 3 06/16/2017 01/16/2018 Route: ORAL Sig: Take 1 tablet by mouth once daily. Disc: Reason for discontinue is not on file. Follow-up and Disposition History Recorded Letter Text Kaity Malik M.D. Department of Cardiology [address] [place], [place] [address] [place] [id number] Brandan Mejia January 16, 2018 1975 To whom it may concern: Brandan Mejia is under my care and is undergoing further studies. 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 Please contact me if further information is needed. Sincerely, Kaity Malik MD Letter Text Kaity Malik M.D. Department of Cardiology [address] [place], [place] [address] . [place] [id number] Brandan Mejia January 16, 2018 1975 To whom it may concern: Brandan Mejia is under my care and is undergoing further studies. 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 This restriction is expected to continue until 02/14/18. Please contact me if further information is needed. Sincerely, Kaity Malik MD Encounter Status:Closed by KAITY MALIK MD on 01/16/18 CBC Collected: 12/28/2017 Status: F Source: KIRBY 3:08 [facility] REPOSITORY TYPE CODE TESTS RESULT OUT OF REFERENCE UNITS RANGE LAB WBC 3.70-11.00 k/uL WBC 6.65 LAB RBC 4.20-6.00 m/uL RBC 4.47 LAB HGB 13.0-17.0 g/dL Low Hemoglobin 12.5 LAB HCT 39.0-51.0 % Hematocrit 39.8 LAB MCV 80.0-100.0 fL MCV 89.0 LAB MCH 26.0-34.0 pG MCH 28.0 LAB MCHC 30.5-36.0 g/dL MCHC 31.4 LAB RDWCV 11.5-15.0 % RDW-CV 13.5 LAB PLTCT 150-400 k/uL Platelet Count 279 LAB MPV 9.0-12.7 fL MPV 10.6 LAB ABSNUC <0.01 k/uL Absolute nRBC <0.01 Performed By: #### CBC, PT, BMP #### [facility] [address] [place], [place] [address] PROTIME Collected: 12/28/2017 Status: F Source: KIRBY 3:08 [facility] REPOSITORY TYPE CODE TESTS RESULT OUT OF RANGE REFERENCE UNITS LAB PSEC 9.7-13.0 sec PT Sec 10.8 LAB INR 0.9-1.3 PT INR 1.0 Result Comment: Vitamin K Antagonist (VKA) Therapeutic Range: INR 2 to 3 (Target INR of 2.5) Note: For patients treated with VKA drugs, such as warfarin, the [place] [employer]icians 2012 Guideline recommends a therapeutic INR range of 2 to 3 (target INR of 2.5). This recommendation includes high-risk patients with antiphospholipid syndrome with previous arterial or venous thromboembolism, current-generation mechanical or bioprosthetic aortic heart valve replacement. Note: Patients with mechanical aortic valve replacement and additional risk factors for thromboembolic events (atrial fibrillation, previous thromboembolism, LV dysfunction, hypercoagulable conditions) or an older generation mechanical AVR (i.e., ball in-Cage) or any mechanical MVR should have a INR therapeutic range of 2.5 to 3.5 (target INR of 3). Loree GH, et al. Chest 2012, 141:7S-47S Magda RA, et al. JAC 2017, 70: 252-289 Performed By: #### CBC, PT, BMP #### [facility] [address] [place] [id number] BASIC METABOLIC PANL Collected: 12/28/2017 Status: F Source: KIRBY 3:08 PM [facility] REPOSITORY TYPE CODE TESTS RESULT OUT OF REFERENCE UNITS RANGE LAB GLU 74-99 mg/dL Glucose 91 Result Comment: The [place] Diabetes Association (ADA) provides guidance for cutoff values for fasting glucose and random glucose. The ADA defines fasting as no caloric intake for at least 8 hours. Fas ting plasma glucose results between 100 to 125 mg/dL indicate increased risk for diabetes (prediabetes). Fasting plasma glucose results greater than or equal to 126 mg/dL meet the criteria for diagnosis of diabetes. In the absence of unequivocal hyperglycemia, results should be confirmed by repeat testing. In a patient with classic symptoms of hyperglycemia or hyperglycemic crisis, random plasma glucose results greater than or equal to 200 mg/dL meet the criteria for diagnosis of diabetes. Reference: Standards of Medical Care in Diabetes 2016, [place] Diabetes Association. Diabetes Care. 2016.39(Suppl 1). LAB BUN 9-24 mg/dL BUN 14 LAB CRET 0.73-1.22 mg/dL Creatinine 0.96 LAB NA 136-144 mmol/L Sodium 140 LAB K 3.7-5.1 mmol/L Potassium 4.2 LAB CL 97-105 mmol/L Chloride 101 LAB CO2 22-30 mmol/L CO2 27 LAB AGAP 9-18 mmol/L Anion Gap 12 LAB CA 8.5-10.2 mg/dL Calcium, Total 9.3 LAB GFRAA eGFR- Amer. >60 LAB GFRNAA . eGFR-All Other Races >60 Result Comment: eGFR (Estimated GFR) Units of measure: mL/min/1.73 meters squared eGFR is derived from the reexpressed MDRD Study equation using the following parameters: serum creatinine, age, gender and race. The creatinine assay has been calibrated to be traceable to IDMS. An eGFR <60 mL/min/1.73m2 for >3 months is consistent with chronic kidney disease. Refer to KDOQI guidelines for clinical interpretation. In patients with unstable renal function, e.g. those with acute kidney injury, the eGFR may not accurately reflect actual GFR. 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 PATIENT GENDER DATA: Male PATIENT RELEVANT IMPLANT DATA REVIEWED: Not Applicable RADIOLOGY DEPARTMENT: General X-ray: Exam(s) Completed: Chest X-Ray PERIPHERAL IV DATA: Not applicable SIGNED BY: RT Luis December 28, 2017 2:59 PM XR CHEST 2V FRONTAL/LAT Observed: 12/28/2017 Status: F Source: KIRBY 2:57 PM [facility] REPOSITORY * * *Final Report* * * DATE OF EXAM: Dec 28 2017 2:57PM [id number] [id number] - XR CHEST 2V FRONTAL/LAT / PROCEDURE REASON: multiple diagnoses * * * * Physician Interpretation * * * * EXAMINATION: CHEST RADIOGRAPH (2 VIEW FRONTAL and LATERAL) CLINICAL HISTORY: Abnormal ECG HINDS (dyspnea on exertion) MQ: XC2_5 Comparison: None RESULT: Lines, tubes, and devices: None. Lungs and pleura: The trachea is normal in position. Lungs are clear of infiltrate, pleural effusion, vascular congestion or pneumothorax.. Cardiomediastinal silhouette: Cardiac silhouette is not enlarged. Other: . No acute bony abnormality IMPRESSION: No acute infiltrate. Linux Architect: PSCB Transcribe Date/Time: Dec 28 2017 4:09P Dictated by : ARMIN GASCA MD This examination was interpreted and the report reviewed and electronically signed by: ARMIN GASCA MD on Dec 28 2017 4:12PM EST [id number] PROGRESS Observed: 12/28/2017 Status: COMPLETED Source: KIRBY 2:33 PM [facility] REPOSITORY HNO ID: [id number] Author: Kaity Malik Service: (none) Author Type: Physician Type: Progress Notes Filed: 12/29/2017 10:04 AM Note Text: PERTINENT CARDIAC HISTORY LVH - septal HINDS Angina HL ADHERENCE TO GUIDELINES DONY-I or ARB for HF with prior LVEF<40 (NQF 0081) - N/A ASA or Plavix for ASHD (NQF 0067) - N/A Beta александр for ASHD with prior AR or prior LVEF<40 (NQF 0070) - N/A Beta александр for HF with prior LVEF<40 (NQF 0083) - N/A DONY-I or ARB for ASHD with DM or prior LVEF<40 (NQF 0066) - N/A Statin therapy for ASHD or FHL or DM - met BMI documented and plan if >25 (NQF 0421) - lifestyle recommendation form Tobacco use screening and referral (NQF 0028) - lifestyle recommendation form Recommendation for whole food, plant based diet - lifestyle recommendation form CLINICAL IMPRESSION/PLAN: Brandan Mejia has an abnormal EKG consistent with LVH, although this by report has been present for over 20 years and he has never had documented hypertension. 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 No dynamic Obstruction can be produced at this time. His exercise intolerance is concerning. Given his high risk Profession, I have recommended that we obtain coronary angiogram to make sure that he has normal coronaries without some congenital abnormality or obstructive disease. He wishes this to be performed at [place] and we will make those arrangements. An alternative explanation for his symptoms could be exercise-induced asthma. He had milder during his recent stress test and this was done under a more controlled environment without smoke exposure. If his angiogram is normal, I recommend E function studies with methacholine challenge if normal. He will be seen on a to be arranged basis. 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 A letter was written on his behalf. Laboratory studies will be updated. Thank you for asking me to see and make recommendations on Brandan Mejia. This report is available to you in the shared medical record. Written and verbal health teaching given to patient, patient verbalizes understanding and agrees with treatment plan. 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 Cerda and Joseph Edwards CNP, for recommendations regarding abnormal EKG and symptoms of exercise intolerance. He reports that he has had a abnormal EKG for over 20 years, dating to the time of training. He was noted to have some T-wave changes and signs of LVH. This was never evaluated until recently, at which time he had an echocardiogram and stress testing. He has noted decreased exercise tolerance. 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 These symptoms have been somewhat progressive over the last year. He denies orthopnea and edema. He has had some mild chest tightness as well as some lightheadedness on extreme exertion. He denies palpitations. He's had no TIAs, amaurosis or claudication. There is no family history of premature vascular disease or sudden . He has had no syncope. ALLERGIES: ALLERGIES No Known Allergies CURRENT OUTPATIENT MEDICATIONS: atorvastatin (LIPITOR) 10 mg tablet Take 1 tablet by mouth once daily. meloxicam (MOBIC) 7.5 mg tablet Take 1-2 tablets by mouth once daily. for pain. Take with food. PAST MEDICAL HISTORY Diagnosis Date - Allergic rhinitis, cause unspecified Allergic rhinitis - Anal fistula - Degeneration of intervertebral disc, site unspecified - Hypercholesterolemia 04/14/2010 total was 204 but HDL 45 and LDL only 139 and TG were <150 - Malignant melanoma of other specified sites of skin 05/2005 dx'd on his left shoulder. He had removed and sees her every 6 months for checks - Other atopic dermatitis and related conditions Atopic dermatitis PAST SURGICAL HISTORY Procedure Laterality Date - FISTULECT/FISTULOT, SUBMUSCULAR 12/12/07 - FISTULECT/FISTULOT, SUBMUSCULAR 12/09 anal fistulotomy, dr. garcia - PAST SURGICAL HISTORY OF 2000 back surgery: - PAST SURGICAL HISTORY OF 08/02 Procedure: intradiscal electrothermal annuloplasty of L4- L5 and L5-S1 - PAST SURGICAL HISTORY OF 09/04 Thoracic Facet Joint Medial Branch Nerve Blocks: thoracic median branch nerve blocks at T8, T9, T10, T11, bilaterally - REM LESIO TRUNK,ARM,LEG 1.1 -2.0CM 05/2005 melanoma at left shoulder FAMILY HISTORY Problem Relation Age of Onset - Lipids Father - Stroke Mother 65 Cerebellar Social History Marital status: Spouse name: mary Years of education: 14 Number of children: 0 Occupational History Occupation Employer Comment [employer] Social History Main Topics Smoking status: Never Smoker Smokeless tobacco: Never Used Alcohol use: No Drug use: No 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 SHEENT: No change in vision or auditory acuity. Respiratory: No productive cough. Cardiac: As noted above. GI: No melena. : No dysuria. Musculoskeletal: No myalgias. Neurologic: No strokes. Psychiatric: No depression. Endocrine: No diabetes. Hematologic: No anemia. PHYSICAL EXAMINATION: S/he is alert and in no distress VITAL SIGNS: BP 122/79 Pulse 79 Ht 5' 7.008 (1.70m) Wt 160 lb 9.6 oz (72.8kg) BMI 25.15 kg/(m2). SHEENT: Skin is warm and dry. Pupils are round and reactive. Retinal vessels are grossly unremarkable. No xanthelasmas appreciated. Pharynx is benign. There is no oral cyanosis. Neck: supple. No adenopathy or thyroid enlargement. Chest: Clear to auscultation. Trachea is midline. Air entry is equal. There is no chest wall tenderness. Cardiac: Regular rhythm. S1 and S2 are normal. PMI is nondisplaced. There is a 2/6 systolic ejection murmur heard best along the left sternal border. There is no change with squat and stand.. No click is heard. Carotids are brisk without bruits. JVP is less than 10 cm. Abdomen: Soft and nontender. There are no pulsatile masses or bruits. No liver enlargement. Bowel sounds are active. : Deferred. Extremities: No edema. Pulses are intact and symmetrical. No clubbing or cyanosis. No femoral bruits. Neurologic: Grossly normal motor and sensory. S/he is alert and oriented x4. Musculoskeletal: No joint deformities. Recent echocardiogram was reviewed. There is mild concentric LVH with septal prominence, although no evidence of LVOT obstruction at rest. Additional images were taken today and no LVOT gradient could be produced with Valsalva.There is no significant valvular heart disease. The left ventricular size is lower limits normal. Recent non-imaging stress test showed normalization (pseudonormalization?) of T waves with exercise. His resting ECG shows generous LV voltage and mild diffuse ST-T wave changes consistent with hypertrophy. He had mild symptoms during stress test. Most recent LDL was 54. Renal function is normal. Electronically Signed: Kaity Malik MD December 28, 2017 2:33 PM CC: Hardik Cerda MD CNOV Observed: 12/28/2017 Status: COMPLETED Source: KIRBY 1:15 PM [facility] REPOSITORY Office Visit (CAWSTR) BRANDAN MEJIA ([id number]) 1975 M Date Time Provider Department 12/28/17 1:15 PM KAITY MALIK CAWSTR During your visit today, we recorded the following information about you: Pulse Blood pressure Weight Height 79/minute 122/79 72.8 kg 1.702 m Kaity Malik MD 12/29/2017 10:04 AM Signed PERTINENT CARDIAC HISTORY LVH - septal HINDS Angina HL ADHERENCE TO GUIDELINES DONY-I or ARB for HF with prior LVEF<40 (NQF 0081) - N/A ASA or Plavix for ASHD (NQF 0067) - N/A Beta александр for ASHD with prior AR or prior LVEF<40 (NQF 0070) - N/A Beta александр for HF with prior LVEF<40 (NQF 0083) - N/A DONY-I or ARB for ASHD with DM or prior LVEF<40 (NQF 0066) - N/A Statin therapy for ASHD or FHL or DM - met BMI documented and plan if >25 (NQF 0421) - lifestyle recommendation form Tobacco use screening and referral (NQF 0028) - lifestyle recommendation form Recommendation for whole food, plant based diet - lifestyle recommendation form CLINICAL IMPRESSION/PLAN: Brandan Mejia has an abnormal EKG consistent with LVH, although this by report has been present for over 20 years and he has never had documented hypertension. 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 No dynamic Obstruction can be produced at this time. His exercise intolerance is concerning. Given his high risk Profession, I have recommended that we obtain coronary angiogram to make sure that he has normal coronaries without some congenital abnormality or obstructive disease. He wishes this to be performed at [place] and we will make those arrangements. An alternative explanation for his symptoms could be exercise- induced asthma. He had milder during his recent stress test and this was done under a more controlled environment without smoke exposure. If his angiogram is normal, I recommend E function studies with methacholine challenge if normal. He will be seen on a to be arranged basis. 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 A letter was written on his behalf. Laboratory studies will be updated. Thank you for asking me to see and make recommendations on Brandan Mejia. This report is available to you in the shared medical record. Written and verbal health teaching given to patient, patient verbalizes understanding and agrees with treatment plan. 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 Cerda and Joseph Edwards CNP, for recommendations regarding abnormal EKG and symptoms of exercise intolerance. He reports that he has had a abnormal EKG for over 20 years, dating to the time of training. He was noted to have some T-wave changes and signs of LVH. This was never evaluated until recently, at which time he had an echocardiogram and stress testing. He has noted decreased exercise tolerance. 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 These symptoms have been somewhat progressive over the last year. He denies orthopnea and edema. He has had some mild chest tightness as well as some lightheadedness on extreme exertion. He denies palpitations. He's had no TIAs, amaurosis or claudication. There is no family history of premature vascular disease or sudden . He has had no syncope. ALLERGIES: ALLERGIES No Known Allergies CURRENT OUTPATIENT MEDICATIONS: atorvastatin (LIPITOR) 10 mg tablet Take 1 tablet by mouth once daily. meloxicam (MOBIC) 7.5 mg tablet Take 1-2 tablets by mouth once daily. for pain. Take with food. PAST MEDICAL HISTORY Diagnosis Date - Allergic rhinitis, cause unspecified Allergic rhinitis - Anal fistula - Degeneration of intervertebral disc, site unspecified - Hypercholesterolemia 04/14/2010 total was 204 but HDL 45 and LDL only 139 and TG were <150 - Malignant melanoma of other specified sites of skin 05/2005 dx'd on his left shoulder. He had removed and sees her every 6 months for checks - Other atopic dermatitis and related conditions Atopic dermatitis PAST SURGICAL HISTORY Procedure Laterality Date - FISTULECT/FISTULOT, SUBMUSCULAR 12/12/07 - FISTULECT/FISTULOT, SUBMUSCULAR 12/09 anal fistulotomy, dr. garcia - PAST SURGICAL HISTORY OF 2000 back surgery: - PAST SURGICAL HISTORY OF 08/02 Procedure: intradiscal electrothermal annuloplasty of L4- L5 and L5-S1 - PAST SURGICAL HISTORY OF 09/04 Thoracic Facet Joint Medial Branch Nerve Blocks: thoracic median branch nerve blocks at T8, T9, T10, T11, bilaterally - REM LESIO TRUNK,ARM,LEG 1.1 -2.0CM 05/2005 melanoma at left shoulder FAMILY HISTORY Problem Relation Age of Onset - Lipids Father - Stroke Mother 65 Cerebellar Social History Marital status: Spouse name: mary Years of education: 14 Number of children: 0 Occupational History Occupation Employer Comment [employer] Social History Main Topics Smoking status: Never Smoker Smokeless tobacco: Never Used Alcohol use: No Drug use: No 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 SHEENT: No change in vision or auditory acuity. Respiratory: No productive cough. Cardiac: As noted above. GI: No melena. : No dysuria. Musculoskeletal: No myalgias. Neurologic: No strokes. Psychiatric: No depression. Endocrine: No diabetes. Hematologic: No anemia. PHYSICAL EXAMINATION: S/he is alert and in no distress VITAL SIGNS: BP 122/79 Pulse 79 Ht 5' 7.008 (1.70m) Wt 160 lb 9.6 oz (72.8kg) BMI 25.15 kg/(m2). SHEENT: Skin is warm and dry. Pupils are round and reactive. Retinal vessels are grossly unremarkable. No xanthelasmas appreciated. Pharynx is benign. There is no oral cyanosis. Neck: supple. No adenopathy or thyroid enlargement. Chest: Clear to auscultation. Trachea is midline. Air entry is equal. There is no chest wall tenderness. Cardiac: Regular rhythm. S1 and S2 are normal. PMI is nondisplaced. There is a 2/6 systolic ejection murmur heard best along the left sternal border. There is no change with squat and stand.. No click is heard. Carotids are brisk without bruits. JVP is less than 10 cm. Abdomen: Soft and nontender. There are no pulsatile masses or bruits. No liver enlargement. Bowel sounds are active. : Deferred. Extremities: No edema. Pulses are intact and symmetrical. No clubbing or cyanosis. No femoral bruits. Neurologic: Grossly normal motor and sensory. S/he is alert and oriented x4. Musculoskeletal: No joint deformities. Recent echocardiogram was reviewed. There is mild concentric LVH with septal prominence, although no evidence of LVOT obstruction at rest. Additional images were taken today and no LVOT gradient could be produced with Valsalva.There is no significant valvular heart disease. The left ventricular size is lower limits normal. Recent non-imaging stress test showed normalization (pseudonormalization?) of T waves with exercise. His resting ECG shows generous LV voltage and mild diffuse ST-T wave changes consistent with hypertrophy. He had mild symptoms during stress test. Most recent LDL was 54. Renal function is normal. Electronically Signed: Kaity Malik MD December 28, 2017 2:33 PM CC: MD Kaity Cornelius MD 12/28/2017 2:33 PM Signed LIFESTYLE CHANGE A healthy lifestyle is the most important component of your overall treatment plan. 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 EAT A WHOLE FOOD, PLANT BASED DIET The nutrition your body gets is more important than the medicine you take. What matters most is the overall way you eat. We encourage you to minimize the use of animal products (which include dairy and all meats except fatty fish) and use whole, unprocessed plant foods to provide your protein, vitamins and other nutrients. We have a lot of information to share with you on this topic. This is not a diet. It is a way of life that you will keep with you. EXERCISE REGULARLY It is not important to spend hours in the gym, lifting weights and perspiring heavily. A total of 2-3 hours per week of aerobic (causing you to be moderately short of breath) exercise is sufficient to improve your health. Talk to us before you begin a new exercise program, if you have heart disease or experience shortness of breath or chest pain. REDUCE STRESS Chronic emotional and physical stress leads to disease. Ways of reducing stress include meditation, visualization, prayer, yoga and other forms of relaxation therapy. Consistency is the ponce. Find a technique that works for you and do it every day. CULTIVATE RELATIONSHIPS Loneliness and isolation have a major negative impact on health. Seek out others who can love, care for and nurture you. Avoid hurtful relationships. MAINTAIN IDEAL BODY WEIGHT The best way to do this is to do all the things above. Our bodies naturally find the right weight if we keep moving and feed ourselves the right food. If your BMI is greater than 25, we strongly recommend a referral to a weight management program. Please speak to us or your family physician about available programs. AVOID NICOTINE IN ALL FORMS This includes all tobacco products, whether chewed, smoked, vaped, or rubbed on the skin. Smoking cessation programs, which can make use of tobacco substitutes, medications to suppress cravings and behavior management, are available. Please contact your family physician about programs in your area. Referring Provider: SELF [[id number]] Allergies As of Date: 12/28/2017 (No Known Allergies) Date Reviewed: 12/28/2017 Reviewed by: Concepcion Peña MA - Fully Assessed Reason for Visit: Establish Care [42] Primary Visit Diagnosis:Abnormal ECG [R94.31] Other Visit Diagnosis:HINDS (dyspnea on exertion) [R06.09] Order(s):XR CHEST 2V FRONTAL/LAT [5950973] Order #: [id number] FUTURE BASIC METABOLIC PNL [SQBMP] Order #: [id number] FUTURE CBC [SQCBC] Order #: [id number] FUTURE PROTHROMBIN TIME/PT [SQPT] Order #: [id number] FUTURE CATH PLMT L HRT AND ARTS W/NJX AND ANGIO IMG EWA [[id number]] Order #: [id number] Prescriptions as of 12/28/2017 Sig: ATORVASTATIN 10 MG TABLET Take 1 tablet by mouth once d* MELOXICAM 7.5 MG TABLET Take 1-2 tablets by mouth onc* Patient not taking: Reported on 12/28/2017 Problem List As Of Date 12/28/2017 Noted Resolved Lumbago [M54.5] INVALID FOR*07/14/2016 OTHER ATOPIC DERMATITIS [L20.89] More... ALLERGIC RHINITIS NOS [J30.9] More... Mixed hyperlipidemia [E78.2] INVALID FOR*04/14/2010 ANEMIA NORMOCYTIC [D64.9] INVALID FOR*07/14/2016 Porokeratosis [Q82.8] INVALID FOR*07/14/2016 Hypercholesterolemia [E78.00] INVALID FOR* More... Migraine without aura [G43.009] INVALID FOR*07/14/2016 Other instructions from your clinician: LIFESTYLE CHANGE A healthy lifestyle is the most important component of your overall treatment plan. 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 EAT A WHOLE FOOD, PLANT BASED DIET The nutrition your body gets is more important than the medicine you take. What matters most is the overall way you eat. We encourage you to minimize the use of animal products (which include dairy and all meats except fatty fish) and use whole, unprocessed plant foods to provide your protein, vitamins and other nutrients. We have a lot of information to share with you on this topic. This is not a diet. It is a way of life that you will keep with you. EXERCISE REGULARLY It is not important to spend hours in the gym, lifting weights and perspiring heavily. A total of 2-3 hours per week of aerobic (causing you to be moderately short of breath) exercise is sufficient to improve your health. Talk to us before you begin a new exercise program, if you have heart disease or experience shortness of breath or chest pain. REDUCE STRESS Chronic emotional and physical stress leads to disease. Ways of reducing stress include meditation, visualization, prayer, yoga and other forms of relaxation therapy. Consistency is the ponce. Find a technique that works for you and do it every day. CULTIVATE RELATIONSHIPS Loneliness and isolation have a major negative impact on health. Seek out others who can love, care for and nurture you. Avoid hurtful relationships. MAINTAIN IDEAL BODY WEIGHT The best way to do this is to do all the things above. Our bodies naturally find the right weight if we keep moving and feed ourselves the right food. If your BMI is greater than 25, we strongly recommend a referral to a weight management program. Please speak to us or your family physician about available programs. AVOID NICOTINE IN ALL FORMS This includes all tobacco products, whether chewed, smoked, vaped, or rubbed on the skin. Smoking cessation programs, which can make use of tobacco substitutes, medications to suppress cravings and behavior management, are available. Please contact your family physician about programs in your area. Follow-up and Disposition History Recorded Letter Text Kaity Malik M.D. 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 Duration of this restriction is expected to be about two weeks. Sincerely, Kaity Malik MD Encounter Status:Closed by KAITY MALIK MD on 12/29/17 [facility] Observed: 12/28/2017 Status: COMPLETED Source: [place] 12:00 AM [facility] REPOSITORY Telephone (CAWSTR) BRANDAN MEJIA ([id number]) 1975 M Date Time Provider Department 12/28/17 KAITY MALIKWSTR During your visit today, we recorded the following information about you: Russel Madrid RN 12/28/2017 3:26 PM Signed Pt to be set up for heart cath per Dr. Helena Madrid RN 12/31/2017 10:41 AM Signed Faxed documents to [facility] for heart cath, called and left Chastity a message that documents were faxed and if any additional info is needed to contact office Russel Madrid RN 12/31/2017 5:07 PM Signed Chastity from [facility] called, pt is scheduled for 01-04-[address] Emily Madrid RN 12/31/2017 5:07 PM Signed Please schedule pt for follow up with Dr. Malik around 01-14-18, ok to double book Russel POWER 01/01/2018 10:53 AM Signed Patient scheduled 01/14 Allergies As of Date: 12/28/2017 (No Known Allergies) Date Reviewed: 12/28/2017 Reviewed by: Concepcion Peña MA - Fully Assessed Reason for Visit: Procedure [88] Prescriptions as of 12/28/2017 Sig: MELOXICAM 7.5 MG TABLET Take 1-2 tablets by mouth onc* Patient not taking: Reported on 12/28/2017 ATORVASTATIN 10 MG TABLET Take 1 tablet by mouth once d* Problem List As Of Date 12/28/2017 Noted Resolved Lumbago [M54.5] INVALID FOR*07/14/2016 OTHER ATOPIC DERMATITIS [L20.89] More... ALLERGIC RHINITIS NOS [J30.9] More... Mixed hyperlipidemia [E78.2] INVALID FOR*04/14/2010 ANEMIA NORMOCYTIC [D64.9] INVALID FOR*07/14/2016 Porokeratosis [Q82.8] INVALID FOR*07/14/2016 Hypercholesterolemia [E78.00] INVALID FOR* More... Migraine without aura [G43.009] INVALID FOR*07/14/2016 Encounter Status:Closed by RL ISRAEL on 01/01/18 PROGRESS Observed: 11/20/2017 Status: COMPLETED Source: [place] 8:59 AM [facility] [place] REPOSITORY HNO ID: [id number] Author: Pati Hartmann ([facility]) [place] Service: (none) Author Type: Production Line Mechanic Type: Progress Notes Filed: 11/20/2017 9:00 AM Note Text: Preliminary report complete; results under cardiac tab. JORGE Alvarez EKG1 Observed: 11/20/2017 Status: F Source: [place] 8:08 AM [facility] REPOSITORY NAME : BRANDAN MEJIA PID : [id number] : 1975 Gender : Male Race : ORD : Procedure Date : Nov 20 2017 08:08:10 Edit Date : Nov 21 2017 08:35:01 Diagnosis:NORMAL SINUS RHYTHM RIGHT AXIS INFERIOR T WAVE ABNORMALITY ABNORMAL ECG Confirmed by REPORT, SEE GXT ([id number]), make up editor ALIYAH CONTRERAS ([id number]) on 11/21/2017 8:34:43 AM Ventricular Rate : 79 BPM Atrial Rate : 79 BPM P-R Interval : 172 ms QRS Duration : 90 ms Q-T Interval : 346 ms QTC Calculation(Bezet) : 396 ms P Thornton : 72 degrees R Thornton : 90 degrees T Thornton : -7 degrees Test Reason : Location : 184 : [facility] Overread By : REPORT,SEE GXT Edited By : ALIYAH CONTRERAS Referred By : HARDIK CERDA [facility] : , [facility] Observed: 11/20/2017 Status: COMPLETED Source: [place] 8:00 AM [facility] REPOSITORY Nurse Visit (CAWSTR) BRANDAN MEJIA ([id number]) 1975 M Date Time Provider Department 11/20/17 8:00 AM NURSE CARD ADMIN [facility] CAWSTR During your visit today, we recorded the following information about you: JORGE Alvarez 11/20/2017 9:00 AM Signed Preliminary report complete; results under cardiac tab. JORGE Alvarez Referring Provider: HARDIK CERDA [[id number]] Allergies As of Date: 11/20/2017 (No Known Allergies) Date Reviewed: 10/16/2017 Reviewed by: Viktoria Mariscal Ma - Fully Assessed Primary Visit Diagnosis:Abnormal ECG [R94.31] Other Visit Diagnosis:Dyspnea on exertion [R06.09] Prescriptions as of 11/20/2017 Sig: MELOXICAM 7.5 MG TABLET Take 1-2 tablets by mouth onc* ATORVASTATIN 10 MG TABLET Take 1 tablet by mouth once d* Problem List As Of Date 11/20/2017 Noted Resolved Lumbago [M54.5] INVALID FOR*07/14/2016 OTHER ATOPIC DERMATITIS [L20.89] More... ALLERGIC RHINITIS NOS [J30.9] More... Mixed hyperlipidemia [E78.2] INVALID FOR*04/14/2010 ANEMIA NORMOCYTIC [D64.9] INVALID FOR*07/14/2016 Porokeratosis [Q82.8] INVALID FOR*07/14/2016 Hypercholesterolemia [E78.00] INVALID FOR* More... Migraine without aura [G43.009] INVALID FOR*07/14/2016 Encounter Status:Closed by Pati ARREDONDO on 11/20/17 ECG COMPLETE W Observed: 10/16/2017 Status: F Source: [facility] 3:02 PM [facility] REPOSITORY NAME : BRANDAN MEJIA PID : [id number] : 1975 Gender : Male Race : ORD : [id number] Procedure Date : Oct 16 2017 15:02:33 Edit Date : Oct 19 2017 07:57:32 Diagnosis:NORMAL SINUS RHYTHM NONSPECIFIC T WAVE ABNORMALITY ABNORMAL ECG Confirmed by BRANDAN LOPEZ D.O. ([id number]) on 10/19/2017 7:57:22 AM Ventricular Rate : 92 BPM Atrial Rate : 92 BPM P-R Interval : 170 ms QRS Duration : 84 ms Q-T Interval : 332 ms QTC Calculation(Bezet) : 410 ms P Thornton : 71 degrees R Thornton : 85 degrees T Thornton : 70 degrees Test Reason : Location : 185 : [facility] Overread By : BRANDAN LOPEZ D.O. Edited By : BRANDAN LOPEZ D.O. Referred By : JOSEPH EDWARDS Acquired by : MAYRA FOWLER Observed: 10/16/2017 Status: COMPLETED Source: [place] 3:00 PM [facility] REPOSITORY Office Visit (INTMWS) BRANDAN MEJIA ([id number]) 1975 M Date Time Provider Department 10/16/17 3:00 PM JOSEPH EDWARDS ([facility]) PAULAWS During your visit today, we recorded the following information about you: Temperature Pulse Respiration Blood pressure 98.3 degrees 104/minute 16/minute 128/74 Weight 77.1 kg Joseph Edwards APRN.CNP 10/16/2017 4:03 PM Signed CC: Patient presents with: Recheck: Abnormal EKG from work physical. HPI Brandan Mejia is a 42 year old male who presents today for follow up of an abnormal EKG during a work physical. Patient reports he had a work physical completed in July 2017. He was informed his EKG showed a non-specific Twave abnormality and was told to follow up. 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 Denies any routine follow up. No previous ECG for comparison, Echo completed in 2005 was normal. 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 Denies chest pain or SOB with minimal exertion, specifically with ambulation and climbing stairs. Patient denies any excessive weight loss, fatigue, headaches, chest pain, arm or jaw pain, palpitations, cough, wheezing, edema, numbness, tingling, dizziness, lightheadedness or syncope. Patient is currently on Lipitor 10mg daily for his cholesterol. No family hx of AR or sudden cardiac related . Reports mother suffered CVA at age 65. Patient is relatively active. Works out a few times a week by playing basketball or other sports related activities. His job is also very physical. Eats a low carb diet. Does not typically watch sodium intake. Drinks pop and coffee, but not in excess. REVIEW OF SYSTEMS General: no fevers, no chills, no night sweats, no recurrent infections, no change in appetite, no change in energy and no significant changes in weight HEENT: no frequent or significant headaches, no changes in hearing, no visual changes, no nose bleeds, no sinus or nasal problems Neck: no lumps, no pain and no swelling Respiratory: no cough, no wheezing, no hemoptysis, see HPI Cardiovascular: no chest pain, no chest pressure, no palpitations and no swelling GI: No nausea, vomiting, or diarrhea Neurologic: No headache, weakness, numbness, tingling, neck stiffness, tremor, vertigo, dizziness, memory loss, syncope. Musculoskeletal: acute right elbow pain, worse with use and shaking hands PAST MEDICAL HISTORY Diagnosis Date - Allergic rhinitis, cause unspecified Allergic rhinitis - Anal fistula - Degeneration of intervertebral disc, site unspecified - Hypercholesterolemia 04/14/2010 total was 204 but HDL 45 and LDL only 139 and TG were <150 - Malignant melanoma of other specified sites of skin 05/2005 dx'd on his left shoulder. He had removed and sees her every 6 months for checks - Other atopic dermatitis and related conditions Atopic dermatitis PAST SURGICAL HISTORY Procedure Laterality Date - FISTULECT/FISTULOT, SUBMUSCULAR 12/12/07 - FISTULECT/FISTULOT, SUBMUSCULAR 12/09 anal fistulotomy, dr. garcia - PAST SURGICAL HISTORY OF 2000 back surgery: - PAST SURGICAL HISTORY OF 08/02 Procedure: intradiscal electrothermal annuloplasty of L4- L5 and L5-S1 - PAST SURGICAL HISTORY OF 09/04 Thoracic Facet Joint Medial Branch Nerve Blocks: thoracic median branch nerve blocks at T8, T9, T10, T11, bilaterally - REM LESIO TRUNK,ARM,LEG 1.1 -2.0CM 05/2005 melanoma at left shoulder ALLERGIES Patient has no known allergies. MEDICATIONS atorvastatin (LIPITOR) 10 mg tablet Take 1 tablet by mouth once daily. FAMILY HISTORY Problem Relation Age of Onset - Lipids Father - Stroke Mother 65 Cerebellar Social History Substance Use Topics - Smoking status: Never Smoker - Smokeless tobacco: Not on file - Alcohol use No PHYSICAL EXAM BP 128/74 Pulse 104 Temp 36.8 ?C (98.3 ?F) (Temporal Artery) Resp 16 Wt 77.1 kg (170 lb) SpO2 100% BMI 26.63 kg/m? General Appearance: well appearing, in no acute distress, alert Pysch: mood and affect broad and appropriate Skin: Skin color, texture, turgor normal for age; Head: normocephalic, atraumatic Eyes: conjunctiva pink and moist, no icterus, sclera white, non-injected Lungs: Lungs clear to auscultation. No wheezing, rhonchi, rales Heart: RRR without murmur, gallop, or rubs. No ectopy Bilateral Lower Extremities: No edema Musculoskeletal: Right elbow: No joint swelling, deformity. Full ROM with minimal discomfort. Mild tenderness to the lateral epicondyle DTAP,TDAP,TD(2 - Td) due on 10/15/2017 INFLUENZA(1) due on 12/01/2017 LIPID SCREEN due on 01/29/2022 ASSESSMENT/PLAN: 1. ECG abnormality - ICD9: 794.31, ICD10: R94.31 (primary diagnosis) - No acute or concerning exam findings this visit - Original ECG abnormality noted July 2017 during routine work physical- copy obtained for comparison. No other ECGs available - ECG COMPLETE W INTERPRETATION- NSR with nonspecific T wave abnormality HR 92. No change from previous ECG in July - Last Echo 2005- unremarkable, will repeat given ECG changes - ECHO - EXERCISE STRESS W/NUC IMAGING - NM CARDIAC PERF STRESS/EXERCISE - Suggest daily ASA therapy - Consider consult to cardiology pending test results, follow up to be determined 2. Right elbow pain - ICD9: 719.42, ICD10: M25.521 - Acute pain without injury, imaging not indicated at this time - Recommend rest, ice, bracing or taping for support and NSAIDs as prescirbed - MELOXICAM 7.5 MG TABLET daily x7 days - Patient to follow up in 1 week if no symptom improvement, sooner for new or worsening symptoms - Consider Medrol dose pack if symptoms persist Joseph Edwards APRN.[place] Prescription instructions reviewed with patient as applicable. Potential red flag symptoms discussed with the patient. Reviewed appropriate action plan to take if red flag symptoms occur. Patient agreeable to treatment plan. Joseph Edwards APRN.CNP 10/16/2017 3:37 PM Signed Please take meloxicam daily for 5-7 days with food. Do not take with other NSAIDs including Advil or Aleve. Okay to start daily 81mg Aspirin. Referring Provider: SELF [200] Allergies As of Date: 10/16/2017 (No Known Allergies) Date Reviewed: 10/16/2017 Reviewed by: Viktoria Mariscal Ma - Fully Assessed Reason for Visit: Recheck [92] Cmt: Abnormal EKG from work physical. Pt states E elbow pain, possibly tennis elbow Reason For Visit History Recorded Primary Visit Diagnosis:ECG abnormality [R94.31] Comment:noted on work physical Other Visit Diagnosis:Right elbow pain [M25.521] Order(s):ECG COMPLETE W INTERPRETATION [ECG01] Order #: [id number] FUTURE meloxicam (MOBIC) 7.5 mg tabletTake 1-2 tablets by mouth once daily. for pain. Take with food.Disp: 45 tabletRfl: 0 ECHO [[id number]] Order #: [id number]: 1 FUTURE EXERCISE STRESS W/NUC IMAGING [[id number]] Order #: [id number]: 1 NM CARDIAC PERF STRESS/EXERCISE [[id number]] Order #: [id number] FUTURE Prescriptions as of 10/16/2017 Sig: MELOXICAM 7.5 MG TABLET Take 1-2 tablets by mouth onc* ATORVASTATIN 10 MG TABLET Take 1 tablet by mouth once d* Problem List As Of Date 10/16/2017 Noted Resolved Lumbago [M54.5] INVALID FOR*07/14/2016 OTHER ATOPIC DERMATITIS [L20.89] More... ALLERGIC RHINITIS NOS [J30.9] More... Mixed hyperlipidemia [E78.2] INVALID FOR*04/14/2010 ANEMIA NORMOCYTIC [D64.9] INVALID FOR*07/14/2016 Porokeratosis [Q82.8] INVALID FOR*07/14/2016 Hypercholesterolemia [E78.00] INVALID FOR* More... Migraine without aura [G43.009] INVALID FOR*07/14/2016 Other instructions from your clinician: Please take meloxicam daily for 5-7 days with food. Do not take with other NSAIDs including Advil or Aleve. Okay to start daily 81mg Aspirin. Prescriptions ordered this encounter Disp Refills Start End MELOXICAM 7.5 MG TABLET 45 t* 0 10/16/2017 Route: ORAL Sig: Take 1-2 tablets by mouth once daily. for pain. Take with food. Encounter Status:Closed by JOSEPH EDWARDS CNP on 10/16/17 PROGRESS Observed: 10/16/2017 Status: COMPLETED Source: [place] 2:52 PM [facility] HNO ID: [id number] Author: Joseph Edwards Service: (none) Author Type: Nurse Practitioner Type: Progress Notes Filed: 10/16/2017 4:03 PM Note Text: CC: Patient presents with: Recheck: Abnormal EKG from work physical. HPI Brandan Mejia is a 42 year old male who presents today for follow up of an abnormal EKG during a work physical. Patient reports he had a work physical completed in July 2017. He was informed his EKG showed a non-specific Twave abnormality and was told to follow up. 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 Denies any routine follow up. No previous ECG for comparison, Echo completed in 2005 was normal. 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 Denies chest pain or SOB with minimal exertion, specifically with ambulation and climbing stairs. Patient denies any excessive weight loss, fatigue, headaches, chest pain, arm or jaw pain, palpitations, cough, wheezing, edema, numbness, tingling, dizziness, lightheadedness or syncope. Patient is currently on Lipitor 10mg daily for his cholesterol. No family hx of AR or sudden cardiac related . Reports mother suffered CVA at age 65. Patient is relatively active. Works out a few times a week by playing basketball or other sports related activities. His job is also very physical. Eats a low carb diet. Does not typically watch sodium intake. Drinks pop and coffee, but not in excess. REVIEW OF SYSTEMS General: no fevers, no chills, no night sweats, no recurrent infections, no change in appetite, no change in energy and no significant changes in weight HEENT: no frequent or significant headaches, no changes in hearing, no visual changes, no nose bleeds, no sinus or nasal problems Neck: no lumps, no pain and no swelling Respiratory: no cough, no wheezing, no hemoptysis, see HPI Cardiovascular: no chest pain, no chest pressure, no palpitations and no swelling GI: No nausea, vomiting, or diarrhea Neurologic: No headache, weakness, numbness, tingling, neck stiffness, tremor, vertigo, dizziness, memory loss, syncope. Musculoskeletal: acute right elbow pain, worse with use and shaking hands PAST MEDICAL HISTORY Diagnosis Date - Allergic rhinitis, cause unspecified Allergic rhinitis - Anal fistula - Degeneration of intervertebral disc, site unspecified - Hypercholesterolemia 04/14/2010 total was 204 but HDL 45 and LDL only 139 and TG were <150 - Malignant melanoma of other specified sites of skin 05/2005 dx'd on his left shoulder. He had removed and sees her every 6 months for checks - Other atopic dermatitis and related conditions Atopic dermatitis PAST SURGICAL HISTORY Procedure Laterality Date - FISTULECT/FISTULOT, SUBMUSCULAR 12/12/07 - FISTULECT/FISTULOT, SUBMUSCULAR 12/09 anal fistulotomy, dr. garcia - PAST SURGICAL HISTORY OF 2000 back surgery: - PAST SURGICAL HISTORY OF 08/02 Procedure: intradiscal electrothermal annuloplasty of L4- L5 and L5-S1 - PAST SURGICAL HISTORY OF 09/04 Thoracic Facet Joint Medial Branch Nerve Blocks: thoracic median branch nerve blocks at T8, T9, T10, T11, bilaterally - REM LESIO TRUNK,ARM,LEG 1.1 -2.0CM 05/2005 melanoma at left shoulder ALLERGIES Patient has no known allergies. MEDICATIONS atorvastatin (LIPITOR) 10 mg tablet Take 1 tablet by mouth once daily. FAMILY HISTORY Problem Relation Age of Onset - Lipids Father - Stroke Mother 65 Cerebellar Social History Substance Use Topics - Smoking status: Never Smoker - Smokeless tobacco: Not on file - Alcohol use No PHYSICAL EXAM BP 128/74 Pulse 104 Temp 36.8 ?C (98.3 ?F) (Temporal Artery) Resp 16 Wt 77.1 kg (170 lb) SpO2 100% BMI 26.63 kg/m? General Appearance: well appearing, in no acute distress, alert Pysch: mood and affect broad and appropriate Skin: Skin color, texture, turgor normal for age; Head: normocephalic, atraumatic Eyes: conjunctiva pink and moist, no icterus, sclera white, non-injected Lungs: Lungs clear to auscultation. No wheezing, rhonchi, rales Heart: RRR without murmur, gallop, or rubs. No ectopy Bilateral Lower Extremities: No edema Musculoskeletal: Right elbow: No joint swelling, deformity. Full ROM with minimal discomfort. Mild tenderness to the lateral epicondyle DTAP,TDAP,TD(2 - Td) due on 10/15/2017 INFLUENZA(1) due on 12/01/2017 LIPID SCREEN due on 01/29/2022 ASSESSMENT/PLAN: 1. ECG abnormality - ICD9: 794.31, ICD10: R94.31 (primary diagnosis) - No acute or concerning exam findings this visit - Original ECG abnormality noted July 2017 during routine work physical- copy obtained for comparison. No other ECGs available - ECG COMPLETE W INTERPRETATION- NSR with nonspecific T wave abnormality HR 92. No change from previous ECG in July - Last Echo 2005- unremarkable, will repeat given ECG changes - ECHO - EXERCISE STRESS W/NUC IMAGING - NM CARDIAC PERF STRESS/EXERCISE - Suggest daily ASA therapy - Consider consult to cardiology pending test results, follow up to be determined 2. Right elbow pain - ICD9: 719.42, ICD10: M25.521 - Acute pain without injury, imaging not indicated at this time - Recommend rest, ice, bracing or taping for support and NSAIDs as prescirbed - MELOXICAM 7.5 MG TABLET daily x7 days - Patient to follow up in 1 week if no symptom improvement, sooner for new or worsening symptoms - Consider Medrol dose pack if symptoms persist Joseph Edwards APRN.SCIENTIFIC AFFAIRS MANAGER Prescription instructions reviewed with patient as applicable. Potential red flag symptoms discussed with the patient. Reviewed appropriate action plan to take if red flag symptoms occur. Patient agreeable to treatment plan. URGENT CARE VISIT Observed: 07/09/2017 Status: F Source: [place] REPORT 3:49 PM [facility] REPOSIT[facility] [address] [place] [address] OFFICE VISIT Date of Service: 07/09/17 MR#: [id number] Acct: [id number] Name: BRANDAN MEJIA Rep #: [id number] : 1975 Provider: Micha TORRES Age/Sex: 42/M Location: [facility] Status: Signed Intake Intake Visit Reasons: WFD/ PHYSICAL Allergies No Known Allergies Allergy (Verified 04/11/16 12:58) Medications Atorvastatin Calcium [Lipitor] 10 mg PO QHS 04/11/16 [History Confirmed 04/11/16] PFSH Social History Smoking Status: Never smoker HPI HPI Details: BRANDAN MEJIA, is a 42 M who presents to the office 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 Please see corresponding scanned documents with today's date. 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 Assessment AND Plan Plan Patient educated on risks/benefits of PAULINA for prostate CA screening. Patient decided to forgo the PAULINA today. Coding Level of Care Code No Charge Additional Codes PE Coding - Pre-employment PE: Yes (PREPE) Comment Annual WFD physical. 07/09/17 1549 <Electronically signed by Micha TORRES> Date Micha TORRES Cosigner Signature: Date (if applicable) CC: ALLERGIES ALLERGIES DATE TYPE / CODE NAME / CODE REACTION SEVERITY SOURCE 04/11/2016 Drug No Known Unknown [facility] Allergy/416 Allergies/Y01633 Hospital 996699(SNOM 0388(RXNORM) Repository ED CT) Drug NO KNOWN [facility] Class/32310 ALLERGIES [place] 1003(SNOMED Repository CT) ENCOUNTERS ENCOUNTERS ADMIT/DISCHARGE ACCOUNT ADMITTING ENCOUNTER LOCATION SOURCE NUMBER CLASS 03/14/2018/03/15/20 [id number] Ambulatory [address] Repository 03/14/2018 [id number] Ambulatory BMSBuilding:[facility] Repository 03/13/2018 [id number] Ambulatory [facility] Hospital ing:PSN Repository 02/21/2018 [id number] Ambulatory BMSBuilding:[facility] Repository 02/20/2018 [id number] Ambulatory [facility] Hospital ing:PSN Repository 02/14/2018/02/15/20 [id number] Ambulatory [address] Repository 02/14/2018/02/15/20 [id number] Ambulatory [address] Repository 02/14/2018/02/16/20 [id number] Ambulatory [address] Repository 01/21/2018 [id number] Ambulatory [facility] Hospital ing:HW Repository 01/21/2018/01/22/20 [id number] Ambulatory BMSBuilding:B [address] Repository 01/16/2018/01/18/20 [id number] Ambulatory [address] Repository 01/11/2018 [id number] Ambulatory [facility] Repository 01/04/2018/01/05/20 [id number] Ambulatory [place] [facility] Hospital ing:CLSP Repository 01/04/2018/01/05/20 [id number] Ambulatory BMSBuilding:[place] [facility] Repository 12/28/2017/12/29/19 [id number] Ambulatory [address] Repository 12/28/2017/12/29/19 [id number] Ambulatory [address] Repository 12/28/2017/01/01/20 [id number] Ambulatory [address] Repository 11/20/2017/11/21/19 [id number] Ambulatory [address] Repository 10/31/2017/11/01/19 [id number] Ambulatory [address] Repository 10/16/2017/10/19/19 [id number] Ambulatory [address] Repository 07/09/2017 [id number] Ambulatory BMSBuilding:Tasha Briceño [facility] Repository 07/09/2017/07/10/19 [id number] Ambulatory BMSBuilding:Tasha Briceño 18 [facility] Repository PAYERS PAYERS ENCOUNTER GUARANTOR PAYER SUBSCRIBER SOURCE 03/14/2018 BRANDAN Manzanares Primary Insurance:MED BRANDAN TOMAS W [facility]UAL [facility] Number: [id number], [place] [id number] Repository [address]28[address]Urx: ([phone]) Date:8884-02-91EK [address] () [address]OWSZHDAFY, [place] [address]TJ: CHECK WEBSITE 03/14/2018 Secondary NOT GIVENUNK [place] Insurance:SELF PAY [facility] Number: Effective Repository Date:2018-03-14 03/13/2018 BRANDAN Manzanares Primary Insurance:MED BRANDAN [id number] [facility]: [facility] Number: [id number] [place], [place] [id number] Repository [address]Jfr: ([phone]) Date:6149-98-80RB [address] () [address]OKXEJDYQO, [place] [address]UA: CHECK WEBSITE 03/13/2018 Secondary NOT GIVENUNK [place] Insurance:SELF PAY [facility] Number: Effective Repository Date:2018-03-04 02/21/2018 BRANDAN D Primary Insurance:MED BRANDAN D [place] [id number] [facility] BERRYDOB: [facility] Number: [id number] [place], [place] [id number] Repository 280[address]Sde: ([phone]) Date:7530-26-49SD [address] () [address]WEITSSH, [place] [address]CR: CHECK WEBSITE 02/21/2018 Secondary NOT GIVENUNK [place] Insurance:SELF PAY [facility] Number: Effective Repository Date:2018-02-21 02/20/2018 BRANDAN D Primary Insurance:MED BRANDAN D [place] [id number] [facility] Number: [id number] [place], [place] [id number] Repository [address]Orq: ([phone]) Date:1222-26-77OC [address] () [address]TEBKEPDDK, [place] [address]KP: CHECK WEBSITE 02/20/2018 Secondary NOT GIVENUNK [place] Insurance:SELF PAY [facility] Number: Effective Repository Date:2018-02-11 01/21/2018 BRANDAN D Primary NOT GIVENUNK [place] [id number] Insurance:SELF PAY [place] Number: Effective Repository [address]Lzi: (330) Date:2018-01-10 () 01/21/2018 BRANDAN D Primary NOT GIVENUNK [place] [id number] Insurance:SELF PAY [place] Number: Effective Repository [phone]: (330) Date:2018-01-21 () 01/04/2018 BRANDAN D Primary BRANDAN D [place] [id number] Insurance:MEDICAL BERRYDOB: [facility] [id number] [place], [place] Number: Repository [address]Fdg: (330) [id number] () Date:0635-92-32[address] [address]YO: 01/04/2018 Secondary NOT GIVENUNK [place] Insurance:SELF PAY [facility] Number: Effective Repository Date:2017-12-31 01/04/2018 BRANDAN D Primary BRANDAN D [place] [id number] Insurance:MEDICAL BERRYDOB: [facility] [id number] [place], [place] Number: Repository [address]Eqy: (203) [id number] (HP) Date:1069-23-50UX [address] [place] [address]IZ: 01/04/2018 Secondary NOT GIVENUNK [place] Insurance:SELF PAY [facility] Number: Effective Repository Date:2018-01-04 07/09/2017 BRANDAN D Primary NOT GIVENUNK [place] [id number] Insurance:SELF PAY [place] Number: Effective Repository [phone]: 330) Date:2017-07-09 (HP) 07/09/2017 BRANDAN D Primary NOT GIVENUNK [place] [id number] Insurance:SELF PAY [place] Number: Effective Repository [phone]: (330) Date:2017-07-09 (HP)
== END ==
PROVIDERS: Family Provider Internal Medicine; PCP Internal Medicine; Referring Provider Internal Medicine Cardiovascular Disease; Visit Provider Internal Medicine Cardiovascular Disease
DX: J45.990 Exercise induced bronchospasm (principal)
CPT/HCPCS: 94070; 95070; J3490; J7674

== ENCOUNTER → 2019-12-01 08:29 | Outpatient (REF) | payer OTHER, SELFPAY ==
[2019-06-02 09:20] VITALS: BMI 26.6
== END ==
LOC: HPRAD 08:29
PROVIDERS: Referring Provider Chiropractor; Visit Provider Chiropractor
DX: M99.03 Segmental and somatic dysfunction of lumbar region (principal); M54.9 Dorsalgia, unspecified
CPT/HCPCS: 72100

== ENCOUNTER → 2020-06-29 10:04 | Outpatient (CLI) | payer OTHER, SELFPAY ==
[2020-06-29 09:30] VITALS: BMI 26.9
[2020-06-29 10:06] LABS: Bacteria 0 SEEN /hpf (None Seen); Mucous, Urine 0 SEEN /hpf (<or=2+); Red Blood Cells-Urine 0 SEEN /hpf (0-5); Squamous Epithelial Cells - UA 0 SEEN /hpf (0-5); White Blood Cells 0 SEEN /hpf (0-5)
[2020-06-29 12:08] LABS: Absolute Lymphocyte Count 1.11 X10^3/uL (0.83-4.51); Absolute Neutrophil Count 2.3 X10^3/uL (2.0-7.7); Basophil# 0.02 X10^3/uL; Basophil% 0.5 % (0-1); Eosinophil# 0.07 X10^3/uL; Eosinophils% 1.8 % (0-5); Hematocrit 44.4 % (40-54); Hemoglobin 14.2 g/dL (13.0-16.5); Lymphocyte # 1.11 X10^3/ul (4.0); Lymphocyte % 28.4 % (19-41); Mean Corpuscular Hgb 28.1 pg (27.0-32.0); Mean Corpuscular Volume 87.9 fL (80-94); Mean Platelet Vol. 10.2 fl (6.2-12.0); Monocyte# 0.42 X10^3/uL; Monocyte% 10.7 % (0-10); NRBC Flagged by Analyzer 0 % (0-5); Neutrophil # 2.28 X10^3/uL (2.7-7.7); Neutrophil % 58.3 % (47-70); Platelet Count 306 K/mm3 (150-450); RBC Distribution Width CV 12.7 % (11.6-14.6); RBC Distribution Width SD 41.1 fl (35.1-43.9); Red Blood Count 5.05 M/mm3 (4.6-6.2); White Blood Count 3.9 K/mm3 (4.4-11.0)
[2020-06-29 12:09] LABS: Color, Urine Yellow (Yellow); Glucose, Dipstick Normal (Normal); Ketone-Dipstick Negative (Negative); Leukocyte Esterase-Dipstick Negative /ul (Negative); Nitrite-Dipstick Negative (Negative); Occult Blood-Urine Negative /ul (Negative); Protein-Dipstick Negative (Negative); Urine Bilirubin Dipstick Negative (Negative); Urine Clarity Clear (Clear); Urine Urobilinogen Normal (Normal)
[2020-06-29 16:02] LABS: ALB/GLOB Ratio 1.2 RATIO (0.9-2.4); AST(SGOT) 23 U/L (15-37); Alanine Aminotransfer ALT/SGPT 45 U/L (16-61); Albumin, Serum 4.1 g/dL (3.2-5.0); Alkaline Phosphatase 77 U/L (45-117); Anion Gap 4 (5-15); BUN 14 mg/dL (7-18); BUN/Creat Ratio 12.5 RATIO (10-20); Calcium,Total 9.1 mg/dL (8.5-10.1); Chloride 105 mmol/L (98-107); Creatinine, Serum 1.12 mg/dL (0.70-1.30); EST Glomerular Filtration Rate 75 mL/min (>60); Est Glom Filt Rate - Afr Amer 91 mL/min (>60); Globulin 3.4 g/dL (2.2-4.2); Glucose 154 mg/dL (74-106); Potassium 4.1 mmol/L (3.5-5.1); Protein, Total 7.5 g/dL (6.4-8.2); Sodium Level 138 mmol/L (136-145)
[2020-06-29 16:36] LABS: Chlamydia Trachomatis by PCR Negative (Negative); Neisserai gonorrhoeae by PCR Negative (Negative); Probe Check PASS; Sample Adequacy Control PASS; Specimen Processing Control PASS
[2020-06-30 15:42] LABS: Hemoglobin A1c 5.5 % (3.8-5.6)
== END ==
PROVIDERS: PCP Internal Medicine; Referring Provider Internal Medicine; Visit Provider Internal Medicine
DX: R73.9 Hyperglycemia, unspecified (principal); N50.819 Testicular pain, unspecified; N45.2 Orchitis
CPT/HCPCS: 36415; 80053; 81001; 83036; 85025; 87086; 87491; 87591

== ENCOUNTER 2020-08-11 15:54 | Outpatient (RCR) | payer SELFPAY ==
[2020-06-29 09:30] VITALS: BMI 26.9
== END 2020-08-11 19:00 ==
LOC: PT 15:54
PROVIDERS: PCP Internal Medicine
DX: R69 Illness, unspecified (principal)

== ENCOUNTER 2020-10-13 13:00 | Outpatient (RCR) | payer OTHER, SELFPAY ==
[2020-08-31 14:52] VITALS: BMI 26.9
--- NOTE | 2020-09-15 14:33 | HP.PTEVAL_ITS ---
Patient's Visit Information BRANDAN TOLLIVER is a 45 year old M referred to Physical Therapy by Dr. Asaf Panchal DO with a diagnosis of LUMBAR DDD. Date of Evaluation: 09/15/20 Physical Therapist: Meli Wilkins PT, Cert MDT - Visit Plan Frequency: 2-3x /Week Duration: 4-6 Weeks Plan: DRY NEEDLING CONSULT. POSTURE CORRECTION/STRENGTHENING, INSTRUCTION IN APPROPRIATE BODY MECHANICS AND ACTIVITY MODIFICATIONS. DLS STARTING WITH A NEUTRAL SPINE PROGRESSING ROM TOLERATED. KENNY LE ROM, STRETCHING AND STRENGTHENING. HEP INSTRUCTION. MAY NEED TO CONSIDER AQUATIC THERAPY AND THIS WAS DISCUSSED WITH PATIENT AND HE IS POTENTIALLY AGREEABLE. 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 Disability: NO. Present symptoms: CENTRAL LOW BACK PAIN. DENIES KENNY LE PAIN, NUMBNESS AND TINGLING. Present since: 2001. RECENT FLARE UP ABOUT 3 WEEKS AGO. Pain Scale: WORST 4/10, LEAST 2/10. Currently: 4/10. Commenced as a result of: DIGGING OUT ROOTS OF JOYNER AND HITTING IT WITH A SHOVEL AND PULLING IT OUT. DID OTHER THINGS THAT DAY TOO. FELT PAIN A FEW HOURS AFTER DIGGING JOYNER OUT. Symptoms at onset: CENTRAL LOW BACK PAIN. Worse: SITTING > 15 MINUTES, STANDING, ANY TYPE OF WORK, PLAYING WITH THE KIDS, DOING DISHES, WASHING THE CAR, SWEEPING, LIFTING, *BENDING. Better: LYING IN HOT BATH, TRAMADOL, MASSAGE. Disturbed sleep: EVERY ONCE IN AWHILE. Previous history/Previous treatment: OCTOBER 02 2019 HAD BAD FLARE UP. ORIGINALLY HURT BACK 2001. WAS DOING REALLY WELL UNTIL 2019 FLARE UP AND REMAINED SOMEWHAT PROBLEMATIC AND FURTHER FLARE UP 3 WEEKS AGO. 2005 - IDET - AT [facility] IN [place]. INTRADISCAL ELETROTHERMAL PROCEEDURE. PUT A NEEDLE COIL INTO DISC, HEATED DISC UP AND PULLED COIL BACK OUT. DID NOT HELP. 2004 PT FOR A FEW WEEKS - DIDN'T HELP. 2003 1 [facility] - DIDN'T WORK. CHIROPRACTIC TREATMENTS SEVERAL TIMES IN 2001 - DID NOT HELP. THIS EPISODE - TRIED 7-[address] LOZOYA AND DID NOT HELP. Coughing/sneezing/straining: POSITIVE. Gait: TIME AND DISTANCE LIMITED. SLOWER THAN NORMAL. Difficulty initiating urinatin: NO. Accidents: NO. Unexplained weight loss: NO. Imaging: LUMBAR MRI LAST WEEK. PATIENT REPORTS THE MRI SHOWED L45 AND L5S1 DDD. NON-COMPRESSED BULGE AND ANNULAR TEARS L45 AND L5S1. PMH: UNREMARKABLE. - Objective Sitting/Standing Posture: FAIR. DECREASED LORDOSIS. NO RELEVENT LATERAL SHIFT. Active Correction of posture: WORSE. Other Observations: INDEP GAIT INTO PT X APPROX 300 FEET WITH DECREASED CADANCE AND DECREASED KENNY STRIDE LENGTH BUT NO OBVIOUS LIMP. Motor deficit: KENNY LE'S GROSSLY 5/5 WITH MMT'ING EXCEPT HIPS GRADED 3+ TO 4-/5. Sensory deficit: NT. ROM deficit: TIGHT KENNY LE HIP FLEXORS, HS'S AND GASTROC SOLEUS COMPLEX'S. Reflexes: NT. Dural Signs: POSITIVE KENNY LE'S. Lumbar mvmt loss: flex - MOD. ext - MOD. R SG - MIN. L SG - MIN. Core strength: POOR. Palpation: NO ACUTE LUMBAR OR SACRAL TENDERNESS. TREATMENT: NEUROMUSCULAR REEDUCATION - RETRAINING OF MVMT AND POSTURE FOR SITTING, LYING AND STANDING ACTIVITIES. - Goals Goal 1:: DECREASE C/O LBP Goal Time Frame: 4-6 Weeks Goal 2:: IMPROVE BENDING, LIFTING, WALKING, SITTING, STANDING, SOCIAL LIFE, TRAVEL AND WORK FUNCTION. Goal Time Frame: 4-6 Weeks Goal 3:: INSTRUCT IN PROPHYLAXIS Goal Time Frame: 4-6 Weeks - Anticipated Interventions Patient/Client Instruction: Educate patient on: Condition, Plan of Care, Risk Factors For the Purpose of:: To improve self management Therapeutic Exercise to Include: Strength training, Body mechanics, Postural training, Flexibilty training, Neuromotor development, In an aquatic setting, Dynamic Lumbar Stabilization For the Purpose of:: To decrease pain, To improve muscle performance and motor function, To increase tolerance to activity/condition/position, To improve ability of physical actions for home/community/work/leisure Manual Therapy Techniques to Include: Functional dry needling For the Purpose of:: To decrease pain, To improve nutrient delivery to tissue, To improve muscle performance and motor function Thank you for the opportunity to evaluate your patient. For Medicare and Medicare HMO plans, please review the plan of care and approve it. It will need to be FAXED BACK to us at [phone] for Medicare purposes. For Medicare only, by signing this I certify the plan of care. Please let me know if there are questions or concerns regarding this plan of care. Physician Sig nature: Date:
--- NOTE | 2020-10-21 09:05 | HP.PT.NRP ---
BRANDAN TOLLIVER was seen in my office for initial evaluation on 09/15/20. The following Plan of Care was established for this patient: Initial Frequency: 2-3x /Week Initial Duration: 4-6 Weeks Patient/Client Instruction: Educate patient on: Condition, Plan of Care, Risk Factors For the Purpose of:: To improve self management Therapeutic Exercise to Include: Strength training, Body mechanics, Postural training, Flexibilty training, Neuromotor development, In an aquatic setting, Dynamic Lumbar Stabilization For the Purpose of:: To decrease pain, To improve muscle performance and motor function, To increase tolerance to activity/condition/position, To improve ability of physical actions for home/community/work/leisure Manual Therapy Techniques to Include: Functional dry needling For the Purpose of:: To decrease pain, To improve nutrient delivery to tissue, To improve muscle performance and motor function This patient was last seen in our office . Pertinent comments regarding their Physical therapy will appear below: I RECIEVED A NOTE STATING PATIENT CANCELLED ALL REMAINING ELYSIA'TS BECAUSE HE IS GOING TO HAVE BACK SURGERY. At this point I will be discontinuing this patient from physical therapy. I would be happy to see this patient again in the future if found appropriate by the physician. Thank you! Meli Wilkins, PT, Cert MDT
== END 2020-10-13 19:00 | disposition home or self-care (01) ==
LOC: PT 13:00
PROVIDERS: PCP Internal Medicine; Referring Provider Orthopaedic Surgery; Visit Provider Orthopaedic Surgery
DX: M51.26 Other intervertebral disc displacement, lumbar region (principal); M43.06 Spondylolysis, lumbar region
CPT/HCPCS: 97035; 97110; 97112; 97162; 97530

== ENCOUNTER → 2021-01-05 13:09 | Outpatient (REF) | payer OTHER, SELFPAY ==
[2021-01-05 12:30] LABS: Absolute Lymphocyte Count 1.02 X10^3/uL (0.83-4.51); Absolute Neutrophil Count 2.4 X10^3/uL (2.0-7.7); Basophil# 0.03 X10^3/uL; Basophil% 0.7 % (0-1); Eosinophil# 0.07 X10^3/uL; Eosinophils% 1.7 % (0-5); Hematocrit 42.9 % (40-54); Hemoglobin 13.6 g/dL (13.0-16.5); Lymphocyte # 1.02 X10^3/ul (0.83-4.51); Lymphocyte % 24.7 % (19-41); Mean Corp Hgb Conc 31.7 g/dL (32-36); Mean Corpuscular Hgb 28.3 pg (27.0-32.0); Mean Corpuscular Volume 89.4 fL (80-94); Mean Platelet Vol. 9.8 fl (6.2-12.0); Monocyte# 0.62 X10^3/uL; NRBC Flagged by Analyzer 0 % (0-5); Neutrophil # 2.38 X10^3/uL (2.7-7.7); Neutrophil % 57.7 % (47-70); Platelet Count 342 K/mm3 (150-450); RBC Distribution Width CV 13.1 % (11.6-14.6); RBC Distribution Width SD 42.9 fl (35.1-43.9); White Blood Count 4.1 K/mm3 (4.4-11.0)
[2021-01-05 12:35] LABS: Color, Urine Yellow (Yellow); Glucose, Dipstick Normal (Normal); Ketone-Dipstick Negative (Negative); Leukocyte Esterase-Dipstick Negative /ul (Negative); Nitrite-Dipstick Negative (Negative); Occult Blood-Urine Negative /ul (Negative); Protein-Dipstick Negative (Negative); Urine Bilirubin Dipstick Negative (Negative); Urine Clarity Clear (Clear); Urine Urobilinogen Normal (Normal)
[2021-01-05 12:42] LABS: Cholesterol 255 mg/dL (200); High Density Lipoprotein 52 mg/dL; PSA,Total - Annual Screen 0.49 ng/mL (0.00-4.00); Triglycerides 121 mg/dL; Very Low Density Lipoprotein 24 mg/dL (5-40)
== END ==
LOC: HW 13:09
PROVIDERS: PCP Internal Medicine
DX: Z00.00 Encounter for general adult medical examination without abnormal findings (principal)
CPT/HCPCS: 80061; 81002; 82274; 84153; 85025; G0103

== ENCOUNTER 2021-03-18 13:47 | Outpatient (RCR) | payer OTHER, SELFPAY ==
--- NOTE | 2021-03-18 15:02 | HP.PTEVAL_ITS ---
Patient's Visit Information BRANDAN TOLLIVER is a 45 year old M referred to Physical Therapy by SAMMY AVILEZ with a diagnosis of S/P BACK SURGERY. Date of Evaluation: 03/18/21 Physical Therapist: Meli Wilkins, PT, Cert MDT - Visit Plan Frequency: 2-3x /Week Duration: 4-6 Weeks Plan: NO RESTRICTIONS OTHER THAN PROGRESSING THER EX SLOWLY. WATCH OUT FOR DELAYED ONSET SORENESS/PAIN/INFLAMMATION. POSTURE CORRECTION/STRENGTHENING, INSTRUCTION IN APPROPRIATE BODY MECHANICS AND ACTIVITY MODIFICATIONS. DLS STARTING WITH A NEUTRAL SPINE PROGRESSING ROM TOLERATED. KENNY LE ROM, STRETCHING AND STRENGTHENING. HEP INSTRUCTION. - Subjective PATIENT REPORTS HAVING BACK SURGERY (TDA - TOTAL DISC ARTHROPLASTY) NOV 26 2020.NO THERAPY X FIRST 3 MONTHS. MOST RECENT FOLLOW UP WITH SURGEON WAS ABOUT WEEK AGO. SURGEON IS CONSIDERING MOVING OUT OF STATE AND LEFT CURRENT FACILITY. CURRENT RESTRICTIONS ARE: LIGHT DUTY AT WORK UNTIL MAR 28 2021. REPORTS THE SURGEON TOLD HIM TO GRADUALLY MOVE MORE AND DO BENDING, LIFTING AND TWISTING GRADUALLY. PATIENT REPORTS THAT CURRENTLY TRYING TO SLOWLY RESUME LIGHT ACTIVITY HE FEELS LOW BACK MUSCLE STRAIN LEFT > RIGHT. FEET WERE NUMB FOR WEEKS AFTER THE SURGERY BUT BACK TO NORMAL NOW. REPORTS HE IS SLOWLY GETTING BETTER NOW. BUT I FEEL TIGHT I HAVE EVER BEEN. 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 Present symptoms: LOW BACK TIGHTNESS. LEG TIGHNESS. LOW BACK PAIN. KENNY BUTTOCK PAIN L > R. SOMETIMES PAIN RADIATES TO UPPER BACK. NO LE PAIN, NUMBNESS OR TINGLING. Present since: 2001. Pain Scale: WORST 4/10, LEAST 1/10. Currently: 05/12. Commenced as a result of: AUGUST FLARE UP FROM DIGGING. Worse: LIGHT HOUSEWORK, TOO MUCH RIDING IN THE CAR. CAN ONLY SIT OR STAND ABOUT AN HOUR. BENDING. LIFTING. Better: LYING DOWN. PAIN MEDICATION - PRESCRIPTION, HOT SHOWERS. Disturbed sleep: NO. Previous history/Previous treatment: PT. CHIRO. BACK PROCEEDURE 2002 WITH COIL - SEE PREVIOUS PT EVAL. Coughing/sneezing/straining: POSITIVE. Gait: DECREASED STRIDE LENGTH. Difficulty initiating urination: DENIES BOWEL OR BLADDER DYSFUNCTION. Imaging: RECENT X-RAYS AT SURGEONS LAST WEEK AND STATES HE WAS TOLD EVERYTHING IS EXACTLY WHERE IT SHOULD BE. PMH/Recent major surgery: MYOCARDIAL BRIDGING - UNDER THE CARE OF A CARDIOLGIST. - Objective Sitting/Standing Posture: FAIR. Lordosis: REDUCED. Lateral shift: NO. Relevant shift: N/A. Other Observations: THIS PATIENT AMBULATES INDEP'LY INTO PT WITH GOOD CADANCE, NO AD'S, NO LOB BUT DECREASED KENNY STRIDE LENGTH. Motor deficit: KENNY LE'S GROSSLY 5/5 WITH MM'TING EXCEPT L HIP 4-/5 AND RIGHT 4/5. Sensory deficit: KENNY LE LIGHT TOUCH SENSATION GROSSLY INTACT AND SYMMETRICAL. ROM deficit: VERY TIGHT KENNY LE HS'S. MILD KENNY GASTROC-SOLEUS COMPLEX TIGHTNESS. Reflexes: NT. Dural Signs: POSITIVE KENNY LE'S. Lumbar mvmt loss: flex - MOD. ext - MOD. R SG - MOD. L SG - MOD. Core strength: POOR. Palpation: INCISION LOOKS GOOD WITHOUT ANY SIGNS OF INFECTION. TREATMENT: THER-EX: INITIATED HEP WITH SKTC, LTR AND RE-STARTED SUPINE KENNY LE DURAL STRETCHING. 2-3 TIMES A DAY STARTING WITH 10 REPS EA IF NO DELAYED ONSET INCREASED PAIN AFTER 10 EA TODAY. PROGRESS SLOWLY TOLERATED. - Balance/Special Test Scores Oswestry Low Back Score: 20 - Goals Goal 1:: DECREASE C/O LOW BACK AND KENNY BUTTOCK PAIN AND TIGHTNESS Goal Time Frame: 4-6 Weeks Goal 2:: IMPROVE ADL, LIFTING, PUSHING, PULLING, STAIR CLIMBING, WALKING, SITTING, STANDING, SOCIAL LIFE, TRAVEL, WORK AND HOMEMAKING FUNCTION. Goal Time Frame: 4-6 Weeks Goal 3:: INSTRUCT IN PROPHYLAXIS Goal Time Frame: 4-6 Weeks - Anticipated Interventions Patient/Client Instruction: Educate patient on: Condition, Plan of Care, Risk Factors For the Purpose of:: To improve self management Therapeutic Exercise to Include: Strength training, Endurance training, Body mechanics, Postural training, Flexibilty training, Gait and locomotor training, Neuromotor development, Dynamic Lumbar Stabilization, Scapular Strength/Stabilization For the Purpose of:: To decrease pain, To improve muscle performance and motor function, To increase tolerance to activity/condition/position, To improve ability of physical actions for home/community/work/leisure, To improve gait and locomotor functions Thank you for the opportunity to evaluate your patient. For Medicare and Medicare HMO plans, please review the plan of care and approve it. It will need to be FAXED BACK to us at [phone] for Medicare purposes. For Medicare only, by signing this I certify the plan of care. Please let me know if there are questions or concerns regarding this plan of care. Physician Signature: Date:
== END 2021-03-18 19:00 | disposition home or self-care (01) ==
LOC: PT 13:47
PROVIDERS: PCP Internal Medicine
DX: M51.36 Other intervertebral disc degeneration, lumbar region (principal)
CPT/HCPCS: 97110; 97162

== ENCOUNTER 2021-06-28 08:06 | Day surgery (SDC) | payer OTHER, SELFPAY ==
[2021-06-28 08:26] VITALS: BP 140/89; PULSE 103; RESP 16; TEMP 36.8; O2SAT 99; BMI 28.3
[2021-06-28] MEDS: Lactated Ringers 1,000 ML 15 ML IV (08:31)
--- NOTE | 2021-06-28 08:35 | HP.PCM_ITS ---
HPI - General HPI Narrative BRANDAN TOLLIVER, is a 46 M who presents for colonoscopy. The patient had a positive Hemoccult in the fall. Patient has never had a colonoscopy in the past. Patient reports no abdominal pain or blood in his stool. He has no family history of colon cancer. [facility] Medical History (Updated 06/28/21 @ 08:[address] Kam Perrin MD) Back pain Back problem Cancer Cardiology follow-up encounter Chronic back pain Diabetes History of echocardiogram History of stress test Hyperglycemia Hyperlipemia Hypertriglyceridemia Injury of back Non-smoker Occult blood positive stool Scrotal pain Seasonal allergies Skin cancer Home Medications sumatriptan succinate 25 mg tablet See Rx Instructions PO .COMPLEX #10 tab 05/27/21 [Rx Last Taken Unknown] meloxicam 15 mg tablet 15 mg PO DAILY PRN #30 tab 06/07/21 [Rx Last Taken Unknown] multivitamin 1 cap PO DAILY 06/24/21 [History Last Taken Unknown] wzhgfuj-gygs-opkml-oreg-capryl 1 cap PO DAILY 06/24/21 [History Last Taken Unknown] Allergy/AdvReac Type Severity Reaction Status Date / Time No Known Allergies Allergy Verified 06/28/21 08:20 Family History Grandmother Cancer Mother CVA (cerebral vascular accident) Hypertension Father Hypertension Hyperlipemia Surgical History (Updated 06/24/21 @ 14:18 by Isabella Peter) History of cardiac catheterization Hx of LASIK Hx of lumbar discectomy Social History Smoking Status: Never smoker alcohol intake: never substance use type: does not use what type of physical activity do you participate in: none Past Medical/Surgical History Planned Operation Planned Operative Procedure/s: CSCOPE OA Previous Hospitalizations/Surgeries HX Hospitalizations: No HX of Surgeries: Anal fistulotomy, back surgery Any Problems With Anesthesia: No You/Your Family Experience Fever (Hyperthermia) With Anes: No Cholinesterase deficiency: No Cardiovascular Hx Chest Pain within Last 2 months: No Hx of Irregular Heartbeat and/or Afib: No Hx Heart Attack: No Hx Congestive Heart Failure: No Hx Rheumatic Fever: No Hx Hypertension: No Hx Pacemaker: No Hx Cardiac Catheterization: No Hx Cardiac Surgery/Stents/Etc.: No Hx Stress Test: Yes Respiratory Hx Chronic Obstructive Pulmonary Disease (COPD): No Hx Asthma: No Hx Emphysema: No Hx Sleep Apnea: No Hx Respiratory Tract Infection/Cold (presently): No Do You Snore Loudly (louder than talking or can be heard): No Do You Often Feel Tired/ Fatigued/ Sleepy Dring Daytime?: No Has Anyone Observed You Stop Breathing During Sleep?: No Result (for STOP score): Negative Hx Smoking: No Smoking Status: Never smoker Gastrointestinal Hx Gastroesophageal Reflux: No Hx Ulcer: No Hx Unplanned Weight Loss of 20#: No HX Unplanned Weight Gain of 20#: No Neurological Hx Seizures: No HX Syncope/Blackout Spells/Unconsciousness: No Hx Head/Neck Injury: No Hx Headaches: No Hx Back Injury/Pain: Yes Does patient have nerve stimulator: No Blood Disorder Hx Deep Vein Thrombosis: No Hx High Cholesterol: Yes Hx Hepatitis: No Hx Anemia: No Reproduction : No Musculoskeletal Hx Arthritis: Yes Endocrine Hx Diabetes: No Psycho/Social Hx Alcohol Use: No Hx Anxiety: No Hx Depression: No Miscellaneous Hx Cancer: Yes (melanoma) Recent Exposure to Contagious Disease: No Allergies No Known Allergies Allergy (Verified 06/28/21 08:20) Discharge Is Pt Admitted From a Senior Living, or a Care Home: No After D/C, Where Do you Plan to Go: Return Home Vital Signs Vital Signs Vital Signs: 06/28/21 08:26 Temperature 98.2 F Temperature Source Temporal Pulse Rate 103 H Respiratory Rate 16 Respiratory Pattern Normal Blood Pressure 140/89 H Blood Pressure Mean 106 Blood Pressure Source Monitor Blood Pressure Position Semi-Fowlers Blood Pressure Location Left Arm Pulse Ox 99 Oxygen Delivery Method Room Air Weight Weight: 191 lb 12.835 oz Body Mass Index (BMI) 28.3 Physical Exam Const alert and oriented x3 Resp normal respiratory effort and normal air movement Cardio regular rate and regular rhythm GI soft to palpation, non-tender and non-distended Assessment & Plan Assessment/Plan (1) Fecal occult blood test positive: PLAN: I explained endoscopy in detail to the patient. I explained the risks including but not limited to stroke or heart attack with anesthesia, perforation of the GI tract, bleeding, infection. I explained that any of these could necessitate further emergency surgery. The patient understands and all questions were answered sufficiently. The patient wishes to proceed with procedure. Kam Perrin MD Pager: [facility] [address] [place] [address], [address] [place] [address] Office: Surgery Risks - Colonoscopy Risks Include but are not Limited To: Risks include but are not limited to: Bleeding, perforation requiring further surgery, inability to complete colonoscopy requiring barium enema.
[2021-06-28 09:04] VITALS: BP 140/89; BP 91/51; PULSE 82; RESP 16; TEMP 36.6; O2SAT 99
--- NOTE | 2021-06-28 09:04 | OP.COLON_ITS ---
Patient Name: Ruiz Mejia Procedure Date: 06/28/2021 8:38 AM Date of : 1975 Age: 46 Procedure: Colonoscopy Indications: Heme positive stool Providers: Kam Perrin MD Medicines: Monitored Anesthesia Care Patient Profile: This is a 46 year old male. Refer to note in patient chart for documentation of history and physical. Last Colonoscopy: none. The patient's first colonoscopy is today. Complications: No immediate complications. Procedure: Pre-Anesthesia Assessment: - Prior to the procedure, a History and Physical was performed, and patient medications and allergies were reviewed. The patient's tolerance of previous anesthesia was also reviewed. The risks and benefits of the procedure and the sedation options and risks were discussed with the patient. All questions were answered, and informed consent was obtained. Prior Anticoagulants: The patient has taken no previous anticoagulant or antiplatelet agents. After reviewing the risks and benefits, the patient was deemed in satisfactory condition to undergo the procedure. After I obtained informed consent, the scope was passed under direct vision. Throughout the procedure, the patient's blood pressure, pulse, and oxygen saturations were monitored continuously. The colonoscope was introduced through the anus and advanced to the cecum, identified by appendiceal orifice and ileocecal valve. The colonoscopy was performed without difficulty. The patient tolerated the procedure well. The quality of the bowel preparation was good. Scope In: 8:47:48 AM Scope Withdrawal Time 0 hours 6 minutes 16 seconds Scope Out: 9:00:38 AM Total Procedure Duration Time 0 hours 12 minutes 50 seconds Findings: The entire examined colon appeared normal on direct and retroflexion views. Impression: - The entire examined colon is normal on direct and retroflexion views. - No specimens collected. Recommendation: - Discharge patient to home. - Resume previous diet. - Continue present medications. - Repeat colonoscopy in 10 years for screening purposes. Procedure Code(s): --- Professional --- 72780, Colonoscopy, flexible; diagnostic, including collection of specimen(s) by brushing or washing, when performed (separate procedure) Diagnosis Code(s): --- Professional --- R19.5, Other fecal abnormalities CPT copyright 2017 [employer] [place] [employer]. All rights reserved. The codes documented in this report are preliminary and upon employment representative review may be revised to meet current compliance requirements. Kam Perrin MD 06/28/2021 9:03:33 AM This report has been signed electronically. Number of Addenda: 0 Note Initiated On: 06/28/2021 8:38 AM
--- NOTE | 2021-06-28 09:05 | OP.CCLET_ITS ---
06/28/2021 Andreia Ortiz MD [address] [place] [address] [place] [address] Re : Colonoscopy procedure for Ruiz Mejia Dear Dr. Ortiz This procedure was performed on Monday, June 28, 2021. My impressions and recommendations are as follows: Impressions : - The entire examined colon is normal on direct and retroflexion views. - No specimens collected. Recommendations : - Discharge patient to home. - Resume previous diet. - Continue present medications. - Repeat colonoscopy in 10 years for screening purposes. My findings are described in the full procedure note, which is enclosed. If I can be of further assistance, please feel free to contact me at Doctor phone number(s): , Work: . Sincerely, Kam Perrin MD 06/28/2021 9:03:33 AM This report has been signed electronically.
[2021-06-28 09:10] VITALS: BP 105/77; BP 140/89; PULSE 78; RESP 16; O2SAT 98
[2021-06-28 09:15] VITALS: BP 112/83; BP 140/89; PULSE 72; RESP 16; O2SAT 97
[2021-06-28 09:21] VITALS: BP 119/81; BP 140/89; PULSE 72; RESP 16; TEMP 36.2; O2SAT 99
[2021-06-28 09:43] VITALS: BP 140/89
== END 2021-06-28 23:59 | disposition home or self-care (01) ==
LOC: EN 08:09 → AC 08:09
PROVIDERS: PCP Internal Medicine; Referring Provider Internal Medicine; Visit Provider Surgery
PROC: 0DJD8ZZ Inspection of Lower Intestinal Tract, Via Natural or Artificial Opening Endoscopic (ICD-10-PCS; CPT 45378; principal; 2021-06-28 09:10)
DX: R19.5 Other fecal abnormalities (principal); E11.9 Type 2 diabetes mellitus without complications; M54.9 Dorsalgia, unspecified; E78.5 Hyperlipidemia, unspecified; G89.29 Other chronic pain
CPT/HCPCS: 45378; J7120

== ENCOUNTER → 2022-05-08 | Outpatient (CLI) | payer OTHER, SELFPAY ==
--- NOTE | 2022-05-08 11:50 | RAD_ITS ---
INDICATION: Shortness of breath EXAMINATION/TECHNIQUE: X-RAY - XR Chest 2 Views COMPARISON: January 29, 2017 FINDINGS: LUNGS: There is blunting of the costophrenic angles. There are streaky opacities within the lower lungs. MEDIASTINUM AND CARDIOVASCULAR STRUCTURES: There is cardiomegaly. Central airways and mediastinal contour are unremarkable. BONES AND SOFT TISSUES: Unremarkable. RAD/Chest PA and Lateral IMPRESSION: Cardiomegaly. Blunting of the costophrenic angles may be secondary to pleural thickening and/or effusions. Atelectasis within the lower lungs. Electronically Signed: Maryann Ash MD at 12:02 EST ,
== END | disposition home or self-care (01) ==
LOC: MTLAB 11:42
PROVIDERS: PCP Internal Medicine; Referring Provider Internal Medicine Pulmonary Disease; Visit Provider Internal Medicine Pulmonary Disease
DX: R06.02 Shortness of breath (principal)
CPT/HCPCS: 36415; 71046; 83880

== ENCOUNTER → 2022-05-11 | Outpatient (CLI) | payer OTHER, SELFPAY ==
[2022-05-11 16:43] LABS: Absolute Lymphocyte Count 1.33 X10^3/uL (0.83-4.51); Absolute Neutrophil Count 4.1 X10^3/uL (2.0-7.7); Basophil# 0.03 X10^3/uL; Basophil% 0.5 % (0-1); Hematocrit 41.1 % (40-54); Hemoglobin 13.1 g/dL (13.0-16.5); Lymphocyte # 1.33 X10^3/ul (0.83-4.51); Lymphocyte % 20.2 % (19-41); Mean Corp Hgb Conc 31.9 g/dL (32-36); Mean Corpuscular Volume 87.8 fL (80-94); Mean Platelet Vol. 9.2 fl (6.2-12.0); Monocyte# 0.89 X10^3/uL; Monocyte% 13.5 % (0-10); NRBC Flagged by Analyzer 0 % (0-5); Neutrophil % 62.5 % (47-70); Platelet Count 521 K/mm3 (150-450); RBC Distribution Width CV 13.9 % (11.6-14.6); RBC Distribution Width SD 44.2 fl (35.1-43.9); Red Blood Count 4.68 M/mm3 (4.6-6.2); White Blood Count 6.6 K/mm3 (4.4-11.0)
[2022-05-11 16:54] LABS: ALB/GLOB Ratio 0.9 RATIO (0.9-2.4); AST(SGOT) 30 U/L (15-37); Alanine Aminotransfer ALT/SGPT 61 U/L (16-61); Albumin, Serum 3.7 g/dL (3.2-5.0); Alkaline Phosphatase 103 U/L (45-117); Anion Gap 9 (5-15); BUN 17 mg/dL (7-18); BUN/Creat Ratio 15.5 RATIO (10-20); Calcium,Total 9.3 mg/dL (8.5-10.1); Chloride 99 mmol/L (98-107); EST Glomerular Filtration Rate 76 mL/min (>60); Est Glom Filt Rate - Afr Amer 92 mL/min (>60); Glucose 107 mg/dL (74-106); Potassium 4.4 mmol/L (3.5-5.1); Protein, Total 7.7 g/dL (6.4-8.2); Sodium Level 137 mmol/L (136-145)
== END | disposition home or self-care (01) ==
LOC: BIMLAB 15:08
PROVIDERS: PCP Internal Medicine; Referring Provider Nurse Practitioner Family; Visit Provider Nurse Practitioner Family
DX: Z09 Encounter for follow-up examination after completed treatment for conditions other than malignant neoplasm (principal)
CPT/HCPCS: 36415; 80053; 85025

== ENCOUNTER → 2022-05-15 | Outpatient (CLI) | payer OTHER, SELFPAY ==
--- NOTE | 2022-05-15 09:18 | RAD_ITS ---
STUDY: X-RAY CHEST REASON FOR EXAM: Male, 46 years old. SOB -- RIGHT TECHNIQUE: Right side down decubitus view. COMPARISON: Comparison is made with prior chest radiograph done earlier today. FINDINGS: Small right pleural effusion. There is no demonstrated pleural abnormality. Sternal cerclage wires and vascular clips are present from a prior sternotomy and coronary artery bypass graft procedure (CABG). Normal mediastinum and kaylee. Normal visualized pulmonary arteries. Normal visualized aortic arch and descending thoracic aorta. Normal visualized thoracic spine. Normal visualized ribs, clavicles, and shoulders. There is no demonstrated abnormality of the visualized soft tissue structures of the upper abdomen. RAD/Special CXR (Obl/Decub/A/L) IMPRESSION: Small right pleural effusion. Electronically Signed: Soham Cobian MD at 15:50 EST ,
--- NOTE | 2022-05-15 09:18 | RAD_ITS ---
STUDY: X-RAY CHEST REASON FOR EXAM: Male, 46 years old. SOB -- L TECHNIQUE: Left side down decubitus view. COMPARISON: None. FINDINGS: The lungs are clear and expanded. There is no demonstrated pleural abnormality. Normal size heart. Normal mediastinum and kaylee. Normal visualized pulmonary arteries. Normal visualized aortic arch and descending thoracic aorta. Normal visualized thoracic spine. Normal visualized ribs, clavicles, and shoulders. There is no demonstrated abnormality of the visualized soft tissue structures of the upper abdomen. RAD/Special CXR (Obl/Decub/A/L) IMPRESSION: No evidence of left pleural effusion. Electronically Signed: Soham Cobian MD at 15:50 EST ,
--- NOTE | 2022-05-15 09:18 | RAD_ITS ---
STUDY: X-RAY CHEST REASON FOR EXAM: Male, 46 years old. Shortness of breath. TECHNIQUE: Single frontal view of the chest. COMPARISON: May 08, 2022. FINDINGS: Hyperinflation with resolution of previously described opacities at both bases. There is no demonstrated pleural abnormality. Stable cardiomegaly with sternotomy wires. Normal mediastinum and kaylee. Normal visualized pulmonary arteries. Normal visualized aortic arch and descending thoracic aorta. Normal visualized thoracic spine. Normal visualized ribs, clavicles, and shoulders. There is no demonstrated abnormality of the visualized soft tissue structures of the upper abdomen. RAD/Chest PA and Lateral IMPRESSION: Hyperinflation with no acute finding. Electronically Signed: Sae Grissom, at 11:31 EST ,
== END | disposition home or self-care (01) ==
LOC: MTRAD 09:16
PROVIDERS: PCP Internal Medicine; Referring Provider Internal Medicine Pulmonary Disease; Visit Provider Internal Medicine Pulmonary Disease
DX: R06.02 Shortness of breath (principal)
CPT/HCPCS: 71046

== ENCOUNTER 2022-05-19 20:31 | Inpatient (IN) | payer OTHER, SELFPAY ==
[2022-05-19 20:32] VITALS: BP 147/93; PULSE 155; RESP 18; TEMP 36.2; O2SAT 96; BMI 26.6
[2022-05-19 20:46] VITALS: PULSE 149; RESP 20; O2SAT 100
--- NOTE | 2022-05-19 20:46 | EKG12_ITS ---
Test Reason : DYSRHYTHMIA Blood Pressure : / mmHG Vent. Rate : 151 BPM Atrial Rate : 302 BPM P-R Int : 000 ms QRS Dur : 064 ms QT Int : 260 ms P-R-T Axes : -87 087 241 degrees QTc Int : 412 ms Atrial flutter Abnormal ECG Confirmed by KALYN ALARCON, NAE ([id number]), tape editor VIRGINIA BALLARD ([id number]) on 05/22/2022 1:56:12 PM Referred By: CONY Confirmed By:NAE MCCAIN MD
[2022-05-19 21:06] LABS: Absolute Lymphocyte Count 1.32 X10^3/uL (0.83-4.51); Absolute Neutrophil Count 3.1 X10^3/uL (2.0-7.7); Basophil# 0.03 X10^3/uL; Basophil% 0.6 % (0-1); Eosinophils% 3.7 % (0-5); Hemoglobin 11.9 g/dL (13.0-16.5); Lymphocyte # 1.32 X10^3/ul (0.83-4.51); Lymphocyte % 24.2 % (19-41); Mean Corp Hgb Conc 32.2 g/dL (32-36); Mean Corpuscular Hgb 28.1 pg (27.0-32.0); Mean Corpuscular Volume 87.5 fL (80-94); Mean Platelet Vol. 8.8 fl (6.2-12.0); Monocyte# 0.83 X10^3/uL; Monocyte% 15.2 % (0-10); NRBC Flagged by Analyzer 0 % (0-5); Neutrophil # 3.06 X10^3/uL (2.7-7.7); Neutrophil % 56.1 % (47-70); Platelet Count 558 K/mm3 (150-450); RBC Distribution Width CV 13.4 % (11.6-14.6); Red Blood Count 4.23 M/mm3 (4.6-6.2); White Blood Count 5.5 K/mm3 (4.4-11.0)
--- NOTE | 2022-05-19 21:19 | RAD_ITS ---
STUDY: X-RAY CHEST REASON FOR EXAM: Male, 46 years old. chest pain TECHNIQUE: AP portable COMPARISON: May 15, 2022 FINDINGS: Postop changes status post median sternotomy and CABG The lungs are clear and expanded. There is no demonstrated pleural abnormality. Normal size heart. Normal mediastinum and kaylee. Normal visualized pulmonary arteries. Normal visualized aortic arch and descending thoracic aorta. Normal visualized thoracic spine. Normal visualized ribs, clavicles, and shoulders. There is no demonstrated abnormality of the visualized soft tissue structures of the upper abdomen. RAD/Chest 1 View (Portable) IMPRESSION: No acute cardiopulmonary pathology Electronically Signed: Asaf Lopez MD at 21:38 EST ,
[2022-05-19 21:28] LABS: Anion Gap 8 (5-15); BUN 16 mg/dL (7-18); BUN/Creat Ratio 15.5 RATIO (10-20); Calcium,Total 9.1 mg/dL (8.5-10.1); Chloride 106 mmol/L (98-107); Creatinine, Serum 1.03 mg/dL (0.70-1.30); EST Glomerular Filtration Rate 82 mL/min (>60); Est Glom Filt Rate - Afr Amer 99 mL/min (>60); Estimated Creatinine Clearance 88.66 ml/min; Glucose 115 mg/dL (74-106); Potassium 3.7 mmol/L (3.5-5.1); Sodium Level 142 mmol/L (136-145); Troponin-I HS 10 pg/mL (3.0-78.0)
--- NOTE | 2022-05-19 21:28 | EDS_ITS ---
HPI History of Present Illness Chief Complaint: Palpitations Informant: patient Narrative Narrative: Sudden palpitations while walking the dog 7:30 PM this evening. No lightheaded symptoms. Status post open chest myocardial bridging 16-day postop at [facility] Dr. nevarez. Reports develop atelectasis fluid overload he was diuresed discharged on the fourth 13 days ago. Currently on metoprolol and baby aspirin. [place] the symptoms took at nighttime with Toprol all symptoms persisted presented to the ED. No dysrhythmia history. States since discharge she is feeling multiple PVCs until this evening things were persistent. Patient ate at 7 PM. No allergies. [facility] Medical History Anxiety Back pain Back problem Cancer Cardiology follow-up encounter Chronic back pain Diabetes History of echocardiogram History of stress test Hyperglycemia Hyperlipemia Hypertriglyceridemia Injury of back Non-smoker Occult blood positive stool Postop check Scrotal pain Seasonal allergies Skin cancer Home Medications multivitamin 1 cap PO DAILY 06/24/21 [History Last Taken Unknown] sumatriptan succinate 25 mg tablet See Rx Instructions PO .COMPLEX #10 tabs 02/20/22 [Rx Last Taken Unknown] duloxetine 30 mg capsule,delayed release 30 mg PO DAILY #90 caps 04/06/22 [Rx Last Taken Unknown] hydroxyzine HCl 25 mg tablet 25 - 50 mg PO BID PRN anxiety #90 tabs 04/06/22 [Rx Last Taken Unknown] sildenafil 25 mg tablet 25 mg PO DAILY PRN sexual activity #30 tabs 04/25/22 [Rx Last Taken Unknown] acetaminophen 325 mg capsule 325 mg PO ONCE PRN Pain 05/11/22 [History Last Taken Unknown] aspirin 81 mg tablet,delayed release (Adult Low Dose Aspirin) 81 mg PO DAILY 05/11/22 [History Last Taken Unknown] metoprolol tartrate 25 mg tablet 25 mg PO BID 05/11/22 [History Last Taken Unknown] oxycodone 5 mg tablet 5 mg PO Q6H 05/11/22 [History Last Taken Unknown] pantoprazole 20 mg tablet,delayed release 20 mg PO DAILY 05/11/22 [History Last Taken Unknown] potassium chloride 20 mEq tablet,extended release(part/cryst) 20 meq PO DAILY 05/11/22 [History Last Taken Unknown] trazodone 50 mg tablet 50 mg PO QHS PRN insomnia #30 tabs 05/16/22 [Rx Last Taken Unknown] Allergy/AdvReac Type Severity Reaction Status Date / Time No Known Allergies Allergy Verified 05/11/22 14:23 Family History Grandmother Cancer Mother CVA (cerebral vascular accident) Hypertension Father Hypertension Hyperlipemia Surgical History History of cardiac catheterization Hx of LASIK Hx of lumbar discectomy Social History Smoking Status: Never smoker alcohol intake: never substance use type: does not use what type of physical activity do you participate in: none ROS ROS ED Constitutional Constitutional ED: Denies chills, fever(s) or sweats Eyes Eyes: Denies change in vision ENT ENT ED: Denies dysphagia or sore throat Cardiovascular Cardiovascular: Reports palpitations and racing heartbeat; Denies chest pain or leg edema Respiratory/Chest Respiratory/Chest: Denies cough, dyspnea or dyspnea on exertion Gastrointestinal Gastrointestinal: Denies abdominal pain, diarrhea, nausea or vomiting Genitourinary Genitourinary ED: Denies dysuria, hematuria or urinary frequency Musculoskeletal Musculoskeletal: Denies back pain, extremity pain or neck pain Integumentary Denies rash or wounds Neurologic Neurologic: Denies headache(s), paresthesias or weakness EXAM Physical Exam Const Vital Signs: 05/19/22 20:32 05/19/22 20:46 05/19/22 21:26 Temperature 97.1 F L Temperature Source Temporal Pulse Rate 155 H 149 H Respiratory Rate 18 20 H Blood Pressure 147/93 H Blood Pressure Mean 111 Blood Pressure Source Blood Pressure Position Blood Pressure Location Pulse Ox 96 100 Oxygen Delivery Method Room Air Room Air 05/19/22 22:27 05/19/22 23:16 05/19/22 23:34 Temperature Temperature Source Pulse Rate 145 H 148 H 145 H Respiratory Rate 17 16 16 Blood Pressure 122/83 H 121/85 H 121/85 H Blood Pressure Mean 96 97 97 Blood Pressure Source Blood Pressure Position Semi-Fowlers Blood Pressure Location Left Arm Pulse Ox 97 97 98 Oxygen Delivery Method Room Air Room Air Room Air 05/19/22 23:58 Temperature Temperature Source Pulse Rate 145 H Respiratory Rate 19 H Blood Pressure 116/83 H Blood Pressure Mean 94 Blood Pressure Source Monitor Blood Pressure Position Semi-Fowlers Blood Pressure Location Left Arm Pulse Ox 96 Oxygen Delivery Method Room Air Positive well nourished and well developed General Appearance ED: well developed and NAD HEENT Reports moist mucous membranes normocephalic and atraumatic Eyes PERRL, EOMs intact bilaterally and conjunctivae normal General Eye ED: Yes normal appearance of both eyes Neck no lymphadenopathy and supple General: Negative for tenderness Chest Wall Chest Narrative: Midline Chest incision clean, dry, intact Chest: Negative for tenderness Resp normal respiratory effort and normal air movement Effort and Inspection: symmetric chest movement; Negative for respiratory distress Cardio regular rhythm and no murmurs Rate: tachycardic Peripheral Pulses: pulses 2+ throughout GI normal to inspection, nondistended, normoactive bowel sounds and non-tender Palpation: Negative for guarding or rebound tenderness present Back/Spine no CVA tenderness and no thoracic nor lumbar tenderness Extremity normal to inspection General Extremety ED: Negative for edema or tenderness General Extremity: Negative for edema Neuro oriented x3 and no sensory deficits noted Sensorium / Orientation: awake and alert Skin no rashes or lesions noted and no wounds MDM MDM MDM Narrative Medical decision making narrative: Interventions / MDM: Differential diagnosis: Atrial flutter, atrial fibrillation, SVT, electrolyte abnormalities Diagnosis considered but do not suspect: N/A My EKG interpretation: Atrial flutter rate of 151, no ST changes. Imaging independently reviewed and interpreted by myself: 1 view chest x-ray: No acute process External documents reviewed: N/A Test considered but not ordered:N/A ED course: Patient post op 16 days myocardium bridging. EKG with new atrial flutter. Symptom onset 7:30 PM less than 2 hours prior to arrival. He has no lightheaded symptoms heart rate 140s to 150s blood pressure stable. I did check labs, potassium 3.7 creatinine 1.03 troponin 10 hemoglobin 7.9 white count 5.5. Chest x-ray normal with no effusions. The patient's postop open chest surgery for his procedure concerns for cardiac irritation. I discussed with on-call wind plant manager Dr. Aguilar, if he would recommend direct-current cardioversion. However he did not recommend this. He recommended diltiazem bolus and drip if needed possible amiodarone. He recommended observation and if he remains in atrial flutter to the hospitalist service. Patient was given 20 mg IV diltiazem heart rate still in the 140s, diltiazem drip was started. Blood pressure remained stable. I discussed with hospitalist Dr. Walton, for admission to PCU. Discussed conversation with cardiology. [id number] score is a 1. Re-evaluation: stable Disposition discussed with patient/family/significant other: Patient and finally Case discussed with consulting clinician: Director Clinical Operations, Dr. Aguilar, hospitalist Dr. Walton Lab Data Attestation: I reviewed the patient's lab results. Labs: Laboratory Results - last 24 hr 05/19/22 05/19/22 20:55 20:55 WBC 5.5 RBC 4.23 L Hgb 11.9 L Hct 37.0 L MCV 87.5 MCH 28.1 MCHC 32.2 RDW Std Deviation 43.0 RDW Coeff of Chris 13.4 Plt Count 558 H MPV 8.8 Immature Gran % (Auto) 0.200 Neut % (Auto) 56.1 Lymph % (Auto) 24.2 [place] % (Auto) 15.2 H Eos % (Auto) 3.7 Baso % (Auto) 0.6 Absolute Neuts (auto) 3.1 Absolute Lymphs (auto) 1.32 Nucleated RBC % 0 Sodium 142 Potassium 3.7 Chloride 106 Carbon Dioxide 28.0 Anion Gap 8 BUN 16 Creatinine 1.03 Estim Creat Clear Calc 88.66 Est GFR (MDRD) Af Amer 99 Est GFR (MDRD) Non-Af 82 BUN/Creatinine Ratio 15.5 Glucose 115 H Calcium 9.1 Troponin I High Sens 10 Radiography Diagnostic Testing: Clinical Impression(s) from Imaging Studies Chest X-Ray 05/19/22 21:19 IMPRESSION: No acute cardiopulmonary pathology Electronically Signed: Asaf Lopez MD at 21:38 EST , EKG Initial EKG: Attestation: I personally reviewed and interpreted this EKG as follows: Comments: Atrial flutter 151, no ST changes Prior EKG tracings: available for review and not available for review Critical Care Time Critical Care Time: Yes Critical care time (excluding procedures): 30-74 minutes, Discussing w/Patient &/or Family/Product Support Rep, Discussing w/Consultants, Arranging Admission or T victor manuelskymberly, Performing Direct Patient Care at Bedside and - (30 minutes) Discharge Plan Triage Chief Complaint: Palpitations ED Provider: Galen Kahn Dx/Rx/DC Orders Clinical Impression: Atrial flutter, Palpitations, Postoperative complication Primary Care Provider: Andreia Ortiz Disposition Disposition: Acute Care Hospital [facility]
[2022-05-19 22:27] VITALS: BP 122/83; PULSE 145; RESP 17; O2SAT 97
[2022-05-19] MEDS: dilTIAZem 25 MG/5 ML Vial 20 MG IV BOLUS (22:28)
[2022-05-19 23:16] VITALS: BP 121/85; PULSE 148; RESP 16; O2SAT 97
[2022-05-19 23:34] VITALS: BP 121/85; PULSE 145; RESP 16; O2SAT 98
[2022-05-19 23:58] VITALS: BP 116/83; PULSE 145; RESP 19; O2SAT 96
[2022-05-20] VITALS (40 sets, daily range): BP systolic 89–136; BP diastolic 63–106; PULSE 71–152; RESP 16–25; TEMP 36.7–37; O2SAT 94–99; BMI 26.7
--- NOTE | 2022-05-20 00:21 | HP.PCM.HOS_ITS ---
HPI - General General Date of Admission: 05/19/22 Date of Service: 05/19/22 Chief Complaint: Heart racing HPI Narrative BRANDAN TOLLIVER, is a 46 M with a history of heart surgery by Dr. 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 He was not lightheaded and had no chest pain or shortness of breath. He reports he was having roughly 20 PVCs per minute for 6 days leading up to this but had not heard back from his fiberglass tube molder at the time of arrival. In the ED he was found to be in a flutter with heart rate in 150s and stable blood pressure. Industrial Technology Education Teacher on-call Dr. Aguilar was contacted by ED and was comfortable with managing patient medically at our institution with Cardizem and possibly amio if no improvement and did not feel cardioversion was required per report. No other remarkable lab abnormalities, he was started on Cardizem and hospitalist contacted for admission. Patient evaluated in ED, heart rate still 140s on Cardizem and BP at the end of evaluation in ED was systolic 127. Patient denies any chest pain or shortness of breath or lightheadedness and only notes that he feels the palpitations. He does still have some soreness with his sternotomy scar but had no other complaints, no recent swelling in extremities, no headache or fevers. Discussed with Dr. Aguilar prior to admission regarding plan as he was still a flutter with rate in 150s on Cardizem and he advised to DC Cardizem and transition to amiodarone. Spoke with patient about admission to our institution and he said his preference is to be admitted here and would like to avoid transfer if possible. [facility] Medical History Anxiety Back pain Back problem Cancer Cardiology follow-up encounter Chronic back pain Diabetes History of echocardiogram History of stress test Hyperglycemia Hyperlipemia Hypertriglyceridemia Injury of back Non-smoker Occult blood positive stool Postop check Scrotal pain Seasonal allergies Skin cancer Home Medications multivitamin 1 cap PO DAILY 06/24/21 [History Last Taken Unknown] sumatriptan succinate 25 mg tablet See Rx Instructions PO .COMPLEX #10 tabs 02/20/22 [Rx Last Taken Unknown] duloxetine 30 mg capsule,delayed release 30 mg PO DAILY #90 caps 04/06/22 [Rx Last Taken Unknown] hydroxyzine HCl 25 mg tablet 25 - 50 mg PO BID PRN anxiety #90 tabs 04/06/22 [Rx Last Taken Unknown] sildenafil 25 mg tablet 25 mg PO DAILY PRN sexual activity #30 tabs 04/25/22 [Rx Last Taken Unknown] acetaminophen 325 mg capsule 325 mg PO ONCE PRN Pain 05/11/22 [History Last Taken Unknown] aspirin 81 mg tablet,delayed release (Adult Low Dose Aspirin) 81 mg PO DAILY 05/11/22 [History Last Taken Unknown] metoprolol tartrate 25 mg tablet 25 mg PO BID 05/11/22 [History Last Taken Unknown] oxycodone 5 mg tablet 5 mg PO Q6H 05/11/22 [History Last Taken Unknown] pantoprazole 20 mg tablet,delayed release 20 mg PO DAILY 05/11/22 [History Last Taken Unknown] potassium chloride 20 mEq tablet,extended release(part/cryst) 20 meq PO DAILY 05/11/22 [History Last Taken Unknown] trazodone 50 mg tablet 50 mg PO QHS PRN insomnia #30 tabs 05/16/22 [Rx Last Taken Unknown] Allergy/AdvReac Type Severity Reaction Status Date / Time No Known Allergies Allergy Verified 05/11/22 14:23 Family History Grandmother Cancer Mother CVA (cerebral vascular accident) Hypertension Father Hypertension Hyperlipemia Surgical History History of cardiac catheterization Hx of LASIK Hx of lumbar discectomy Social History Smoking Status: Never smoker alcohol intake: never substance use type: does not use what type of physical activity do you participate in: none ROS ROS Narrative General: Denies fever or chills, denies weight change HENT: Denies headache, denies stuffy nose, denies sore throat EYES: Denies changes in vision Resp: Denies cough, denies changes in his breathing, did have postop atelectasis and is following with pulmonology for this Cardiac: Denies chest pain, does have some sternotomy pain GI: Denies abdominal pain, denies changes in bowel, denies nausea, denies vomiting : Denies changes in urination Extremity: Denies swelling MSK: Denies weakness Neuro: Denies any numbness, denies tingling Heme: Denies any bleeding or bruising Skin: Denies rashes Psychiatric: No complaints voiced Vital Signs Vital Signs Vital Signs: 05/19/22 20:32 05/19/22 20:46 05/19/22 21:26 Temperature 97.1 F L Temperature Source Temporal Pulse Rate 155 H 149 H Respiratory Rate 18 20 H Blood Pressure 147/93 H Blood Pressure Mean 111 Blood Pressure Source Blood Pressure Position Blood Pressure Location Pulse Ox 96 100 Oxygen Delivery Method Room Air Room Air 05/19/22 22:27 05/19/22 23:16 05/19/22 23:34 Temperature Temperature Source Pulse Rate 145 H 148 H 145 H Respiratory Rate 17 16 16 Blood Pressure 122/83 H 121/85 H 121/85 H Blood Pressure Mean 96 97 97 Blood Pressure Source Blood Pressure Position Semi-Fowlers Blood Pressure Location Left Arm Pulse Ox 97 97 98 Oxygen Delivery Method Room Air Room Air Room Air 05/19/22 23:58 Temperature Temperature Source Pulse Rate 145 H Respiratory Rate 19 H Blood Pressure 116/83 H Blood Pressure Mean 94 Blood Pressure Source Monitor Blood Pressure Position Semi-Fowlers Blood Pressure Location Left Arm Pulse Ox 96 Oxygen Delivery Method Room Air Weight Weight: 81.647 kg Body Mass Index (BMI) 26.6 Physical Exam Narrative General: Alert, oriented, no apparent distress HEENT: Atraumatic, normocephalic Eyes: Anicteric, normal conjunctiva, extraocular movements grossly intact Neck: Supple Respiratory: Clear to auscultation bilaterally, normal respiratory effort Cardiovascular: Regular rhythm, tachycardic GI: Soft, nontender, nondistended Extremities: No edema Musculoskeletal: Moving all extremities Neuro: No overt focal neurological deficits Skin: No rashes appreciated, sternotomy noted Psych: Cooperative Results Lab / Micro Data Result Diagrams: 05/19/22 20:55 05/19/22 20:55 Labs: Laboratory Results - last 24 hr 05/19/22 20:55: WBC 5.5, RBC 4.23 L, Hgb 11.9 L, Hct 37.0 L, MCV 87.5, MCH 28.1, MCHC 32.2, RDW Std Deviation 43.0, RDW Coeff of Chris 13.4, Plt Count 558 H, MPV 8.8, Immature Gran % (Auto) 0.200, Neut % (Auto) 56.1, Lymph % (Auto) 24.2, [place] % (Auto) 15.2 H, Eos % (Auto) 3.7, Baso % (Auto) 0.6, Absolute Neuts (auto) 3.1, Absolute Lymphs (auto) 1.32, Nucleated RBC % 0 05/19/22 20:55: Sodium 142, Potassium 3.7, Chloride 106, Carbon Dioxide 28.0, Anion Gap 8, BUN 16, Creatinine 1.03, Estim Creat Clear Calc 88.66, Est GFR (MDRD) Af Amer 99, Est GFR (MDRD) Non-Af 82, BUN/Creatinine Ratio 15.5, Glucose 115 H, Calcium 9.1, Troponin I High Sens 10 Radiology Impression Chest X-Ray 05/19/22 21:19 IMPRESSION: No acute cardiopulmonary pathology Electronically Signed: Asaf Lopez MD at 21:38 EST Reading Location ID and State: [address] [place] [address] , Service support , Assessment & Plan Assessment/Plan (1) Atrial flutter: PLAN: Plan #Atrial flutter with heart rate in 140s -Has been having PVCs since his surgery and has had high burden over the past 6 days -Was found to be in flutter in ED with heart rate 140s to 150s, EKG reviewed and is consistent with atrial flutter -Aside from noting the palpitations he was asymptomatic -Troponin within normal limits in ED -Cardiology contacted and recommended Cardizem and possible amio if Cardizem unsuccessful and did not feel transfer was required and patient himself preferred admission to our hospital and not to be transferred if possible -Contacted Dr. Aguilar about flutter despite Cardizem bolus and drip and he recommended discontinuing Cardizem and starting amiodarone -Patient being admitted to telemetry floor with close monitoring, discussed with staff regarding plan to DC Cardizem and start amiodarone as soon as he arrives to the floor -Has been vitally stable and asymptomatic -TSH ordered, we will check magnesium, goal to keep potassium at 4 and magnesium at 2 -Echo ordered -N.p.o. in the event he would need cardioversion if medication unsuccessful -Cardiology consulted -[id number] low, will not start on anticoagulation #Recent heart surgery for myocardial bridge of her LAD -Reports he had myocardial bridge over LAD that was causing shortness of breath intermittently but otherwise no coronary artery disease on heart cath per patient -Surgery on 05/[address] [facility] w/ Dr. Everett and follows with Dr. Zimmerman as his primary fiberglass tube molder -Tylenol as needed for sternotomy pain -Incentive spirometry -Chest x-ray with no acute changes and no overt edema or worsened effusions -Echo ordered #DVT ppx: SCDs Sonia Walton MD Time spent in the patient's overall evaluation,decision-making process, review of diagnostic data, adjustment of management, discussion with other providers, nursing nursing and ancillary staff involved in patient's care documentation, 60 minutes Charges/Coding Visit Charges Inpatient E&M: 62934 Init Hosp L2
--- NOTE | 2022-05-20 01:21 | EKG12_ITS ---
Test Reason : R CHANGE Blood Pressure : / mmHG Vent. Rate : 075 BPM Atrial Rate : 075 BPM P-R Int : 178 ms QRS Dur : 072 ms QT Int : 362 ms P-R-T Axes : 071 087 129 degrees QTc Int : 404 ms Normal sinus rhythm T wave abnormality, consider anterolateral ischemia Abnormal ECG When compared with ECG of 20-MAY-2022 03:29, MANUAL COMPARISON REQUIRED, DATA IS UNCONFIRMED Confirmed by KALYN ALARCON, NAE ([id number]), script editor VIRGINIA BALLARD ([id number]) on 05/23/2022 11:09:51 AM Referred By: Confirmed By:NAE MCCAIN MD
--- NOTE | 2022-05-20 01:21 | ECHOD_ITS ---
Reason For Study: ANB EKG Procedure This was a 2D Doppler, Color Flow transthoracic echocardiogram. Exam performed portable in patient room. Left Ventricle Normal LV size. Mild concentric left ventricular hypertrophy. The left ventricular ejection fraction is 65 %. Right Ventricle Normal right ventricle. Atria The left and right atria are normal. Mitral Valve The mitral valve is structurally normal. No prolapse or stenosis seen. Tricuspid Valve The tricuspid valve is not well visualized. Aortic Valve Normal aortic valve. Pulmonic Valve The pulmonic valve is not well visualized. Trivial pulmonic valve insufficiency. Great Vessels Normal sized aortic root. Pericardium/Pleural Small pericardial effusion. MMode/2D Measurements & Calculations LVIDd: 2.7 cm IVSd: 1.6 cm Ao root diam: 3.2 cm LVIDs: 2.4 cm LVPWd: 1.3 cm FS: 12.3 % LAV(MOD-bp): 33.2 ml LVAd ap2: 18.5 cm2 SV(MOD-sp2): 31.3 ml LAV(MOD-bp) Indexed: 16.8 ml/m2 LVLd ap2: 6.8 cm LAV(MOD-sp2): 28.3 ml EDV(MOD-sp2): 41.6 ml LAV(MOD-sp4): 36.0 ml EDV(sp2-el): 42.7 ml LVAs ap2: 7.5 cm2 LVLs ap2: 4.6 cm ESV(MOD-sp2): 10.3 ml ESV(sp2-el): 10.3 ml EF(MOD-sp2): 75.2 % LA A4 area: 14.5 cm2 LA dimension(2D): 3.1 cm RA A4 area: 18.0 cm2 Time Measurements MV dec time: 0.17 sec Doppler Measurements & Calculations MV E max lamin: 87.5 cm/sec Lat Peak E' Lamin: 8.5 cm/sec Med Peak E' Lamin: 10.2 cm/sec MV A max lamin: 45.3 cm/sec E/E' lat: 10.2 E/E' med: 8.6 MV E/A: 1.9 MV V2 max: 99.1 cm/sec Ao V2 max: 96.6 cm/sec MV max P.9 mmHg MV dec slope: 514.7 cm/sec2 Ao max P.7 mmHg MV V2 mean: 53.6 cm/sec Ao V2 mean: 67.5 cm/sec MV mean P.4 mmHg Ao mean P.1 mmHg MV V2 VTI: 24.5 cm Ao V2 VTI: 18.6 cm AV (velocity ratio): 0.82 LV V1 max: 74.2 cm/sec PA V2 max: 98.5 cm/sec LV V1 max P.2 mmHg PA V2 mean: 68.7 cm/sec LV V1 mean P.3 mmHg LV V1 mean: 54.5 cm/sec LV V1 VTI: 15.3 cm ECHO/Echo Complete Interpretation Summary Mild concentric left ventricular hypertrophy. The left ventricular ejection fraction is 65 %. Small pericardial effusion. Ordering Physician: Sonia Walton Referring Physician: Andreia Ortiz Performed By: Madisyn Huerta RCS
[2022-05-20] MEDS: MELATONIN 10 MG TABLET PO (02:14)
[2022-05-20] MEDS: Potassium Chloride 10mEq/100mL 10 MEQ/100 ML IV.SOLN. 100 MEQ IV BOLUS (02:30)
[2022-05-20] MEDS: 0.9% Saline Lock 10 ML Syringe IV ×3 (02:31→11:45)
[2022-05-20] MEDS: Amiodarone 360 MG in Dextrose 5% Viaflo Bag 192.8 ML 33.3 MG CONT INF (02:41)
[2022-05-20 06:09] LABS: Hematocrit 36.7 % (40-54); Hemoglobin 11.6 g/dL (13.0-16.5); Mean Corp Hgb Conc 31.6 g/dL (32-36); Mean Corpuscular Hgb 27.2 pg (27.0-32.0); Mean Corpuscular Volume 86.2 fL (80-94); Mean Platelet Vol. 9.1 fl (6.2-12.0); Platelet Count 513 K/mm3 (150-450); RBC Distribution Width CV 13.2 % (11.6-14.6); RBC Distribution Width SD 41.4 fl (35.1-43.9); Red Blood Count 4.26 M/mm3 (4.6-6.2); White Blood Count 6.9 K/mm3 (4.4-11.0)
[2022-05-20 06:55] LABS: ALB/GLOB Ratio 0.8 RATIO (0.9-2.4); AST(SGOT) 26 U/L (15-37); Alanine Aminotransfer ALT/SGPT 40 U/L (16-61); Albumin, Serum 3.1 g/dL (3.2-5.0); Alkaline Phosphatase 123 U/L (45-117); Anion Gap 8 (5-15); BUN 12 mg/dL (7-18); BUN/Creat Ratio 15.4 RATIO (10-20); Calcium,Total 8.9 mg/dL (8.5-10.1); Chloride 107 mmol/L (98-107); Cholesterol 200 mg/dL (200); Creatinine, Serum 0.78 mg/dL (0.70-1.30); EST Glomerular Filtration Rate 113 mL/min (>60); Est Glom Filt Rate - Afr Amer 137 mL/min (>60); Estimated Creatinine Clearance 117.08 ml/min; Globulin 3.7 g/dL (2.2-4.2); Glucose 113 mg/dL (74-106); High Density Lipoprotein 36 mg/dL; Magnesium 2.4 mg/dL (1.6-2.6); Potassium 4.2 mmol/L (3.5-5.1); Protein, Total 6.8 g/dL (6.4-8.2); Sodium Level 139 mmol/L (136-145); Thyroid Stim Hormone (TSH) 1.47 uIU/mL (0.358-3.74); Triglycerides 176 mg/dL; Very Low Density Lipoprotein 35 mg/dL (5-40)
--- NOTE | 2022-05-20 07:30 | PCM.HOSP.N ---
Hospitalist Note Mr. Fiore is a 46-year-old male with recent cardiac surgery by Dr. 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 He had no other concordant symptoms. He was having PVCs of 20/min around 60s leading up to this but was not able to get a response from his horse identifier despite calling him. Dr. Aguilar was contacted by emergency department and he was given a Cardizem bolus but unfortunately his heart rate stayed elevated and he required placement on amiodarone through the night. TSH is 1.47. Thrombocytosis is present but trending down. Cardiology consulted await input. Hopeful will transition to normal sinus rhythm be able to be discharged in next 24 hours.
[2022-05-20] MEDS: Amiodarone 360 MG in Dextrose 5% Viaflo Bag 192.8 ML 16.7 MG CONT INF ×2 (08:49→21:47)
[2022-05-20] MEDS: Acetaminophen 325 MG Tablet 650 MG PO (08:54)
[2022-05-20] MEDS: dilTIAZem 25 MG/5 ML Vial 20 MG IV BOLUS ×2 (10:00→10:12)
[2022-05-20] MEDS: Adenosine 6 MG/2 ML Syringe 12 MG IV (10:01)
--- NOTE | 2022-05-20 10:50 | EKG12_ITS ---
Test Reason : AM Blood Pressure : / mmHG Vent. Rate : 145 BPM Atrial Rate : 290 BPM P-R Int : 000 ms QRS Dur : 078 ms QT Int : 260 ms P-R-T Axes : 260 085 177 degrees QTc Int : 403 ms Atrial flutter with 2:1 A-V conduction Anterior infarct , age undetermined ST & T wave abnormality, consider lateral ischemia Abnormal ECG When compared with ECG of 19-MAY-2022 20:44, MANUAL COMPARISON REQUIRED, DATA IS UNCONFIRMED Confirmed by KALYN ALARCON, NAE ([id number]), website/blog editor VIRGINIA BALLARD ([id number]) on 05/23/2022 11:10:04 AM Referred By: Confirmed By:NAE MCCAIN MD
--- NOTE | 2022-05-20 10:51 | CT_ITS ---
EXAM: CT ANGIOGRAPHY CHEST WITHOUT AND WITH INTRAVENOUS CONTRAST CLINICAL INDICATION: Rule out PE TECHNIQUE: Helically acquired angiography images were obtained of the chest without and with intravenous contrast. This CT exam was performed using one or more of the following dose reduction techniques: automated exposure control, adjustment of the mA and/or kV according to patient size, and/or use of iterative reconstruction technique. This report was created using [employer] report generation technology. MIP reconstructed images were created and reviewed. CONTRAST: IV 100mL [id number]-370 RADIATION DOSE: CTDIvol = 12.2 mGy, DLP = 401.12 mGy-cm COMPARISON: None. FINDINGS: PULMONARY ARTERIES: Unremarkable. No demonstrated pulmonary embolism or arterial dissection. AORTA: Unremarkable. Normal in caliber. No evidence of dissection. GREAT VESSELS OF AORTIC ARCH: Unremarkable. Normal in caliber. No evidence of dissection. LUNGS AND PLEURAL SPACES: There is a moderate right pleural effusions. There is a small left pleural effusions. There is right lower lobe atelectasis. No mass. No pneumothorax. HEART: Unremarkable. Heart size is normal. No pericardial effusion. No signs of right heart strain, ratio of right ventricle to left ventricle measures less than 1. MEDIASTINUM: There is a hiatal hernia. Multiple median sternotomy wires are noted consistent for cardiac surgery. No mediastinal or hilar adenopathy. Esophagus is unremarkable. THYROID: Unremarkable. No thyroid lesions. BONES/JOINTS: Unremarkable. No suspicious lytic or blastic abnormality. CT/CTA Chest W/WO Contrast IMPRESSION: No demonstrated pulmonary embolism or arterial dissection. Electronically Signed: Rigoberto Leslie MD at 14:17 EST ,
--- NOTE | 2022-05-20 10:54 | CON.PCM.CA_ITS ---
Assessment & Plan Assessment/Plan (1) Atrial flutter: PLAN: Patient was given another bolus of amiodarone this morning. Also given IV boluses of diltiazem and started on infusion. He shortly thereafter converted to normal sinus rhythm. Stop diltiazem. Continue amiodarone IV for today. We will switch to p.o. in the morning. Start on Eliquis. Keep on amiodarone for at least 4 weeks and then reevaluate with a 30-day Holter monitor. Patient is postop from his recent cardiac surgery. We will check CT angio to rule out pulmonary embolism as an inciting event of his atrial flutter. (2) Coronary artery disease: PLAN: Intramyocardial bridging of the LAD. Status post unroofing surgery at the [facility]. Continue metoprolol. PLAN: Plan Likely discharge home in the morning if he maintains normal sinus rhythm. 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 He had unroofing surgery of the LAD done at the [facility] on 03 May 2022. Postop he has had atelectasis of the lungs. The patient presented to the emergency room with complaints of heart racing. According to the patient, for 5 days prior to presentation, he had been feeling flutter in his chest. The evening of his presentation, he felt his heart racing. In the emergency room, the patient was noted to be in atrial flutter with rapid ventricular response. He was given diltiazem and then amiodarone and started on an amiodarone infusion. Overnight the patient continued to have rapid ventricular response with atrial flutter. Denied any associated chest pain or shortness of breath. [facility] Medical History Anxiety Back pain Back problem Cancer Cardiology follow-up encounter Chronic back pain Diabetes History of echocardiogram History of stress test Hyperglycemia Hyperlipemia Hypertriglyceridemia Injury of back Non-smoker Occult blood positive stool Postop check Scrotal pain Seasonal allergies Skin cancer Home Medications multivitamin 1 cap PO DAILY 06/24/21 [History Last Taken Unknown] sumatriptan succinate 25 mg tablet See Rx Instructions PO .COMPLEX #10 tabs 11/21/22 [Rx Last Taken Unknown] duloxetine 30 mg capsule,delayed release 30 mg PO DAILY #90 caps 04/06/22 [Rx Last Taken Unknown] hydroxyzine HCl 25 mg tablet 25 - 50 mg PO BID PRN anxiety #90 tabs 04/06/22 [Rx Last Taken Unknown] sildenafil 25 mg tablet 25 mg PO DAILY PRN sexual activity #30 tabs 04/25/22 [Rx Last Taken Unknown] acetaminophen 325 mg capsule 325 mg PO ONCE PRN Pain 05/11/22 [History Last Taken Unknown] aspirin 81 mg tablet,delayed release (Adult Low Dose Aspirin) 81 mg PO DAILY 05/11/22 [History Last Taken Unknown] metoprolol tartrate 25 mg tablet 25 mg PO BID 05/11/22 [History Last Taken Unknown] oxycodone 5 mg tablet 5 mg PO Q6H 05/11/22 [History Last Taken Unknown] pantoprazole 20 mg tablet,delayed release 20 mg PO DAILY 05/11/22 [History Last Taken Unknown] potassium chloride 20 mEq tablet,extended release(part/cryst) 20 meq PO DAILY 05/11/22 [History Last Taken Unknown] trazodone 50 mg tablet 50 mg PO QHS PRN insomnia #30 tabs 05/16/22 [Rx Last [place] Unknown] Allergy/AdvReac Type Severity Reaction Status Date / Time No Known Allergies Allergy Verified 05/11/22 14:23 Family History Grandmother Cancer Mother CVA (cerebral vascular accident) Hypertension Father Hypertension Hyperlipemia Surgical History History of cardiac catheterization Hx of LASIK Hx of lumbar discectomy Social History Smoking Status: Never smoker alcohol intake: never substance use type: does not use what type of physical activity do you participate in: none Physical Exam Narrative Comfortable. No apparent distress. Heart sounds 1 and 2 normal. No murmurs or rubs noted. Chest clear to auscultation bilaterally. Abdomen soft. Alert oriented x3. No ankle edema noted. Risk Stratification Risk Stratification Applicable: No Objective Data Vital Signs: Vital Signs Temp Pulse Resp BP Pulse Ox O2 Del Method 98.0 F 145 H 24 H 109/90 H 96 Room Air 05/20/22 08:45 05/20/22 10:30 05/20/22 10:30 05/20/22 10:30 05/20/22 08:50 05/20/22 08:50 Oxygen Delivery Method Room Air Weight: 180 lb 15.992 oz Body Mass Index (BMI) 26.7 Intake & Output: Intake and Output for Last 24 Hours 05/18/22 05/19/22 05/20/22 23:59 23:59 23:59 Intake Total 3.5 / 3.5 557.51 / 557.51 Balance 3.5 / 3.5 557.51 / 557.51 Lab / Micro Data Attestation: I reviewed the patient's lab results. Result Diagrams: 05/20/22 05:30 05/20/22 05:30 Labs: Laboratory Results - last 24 hr 05/19/22 20:55: WBC 5.5, RBC 4.23 L, Hgb 11.9 L, Hct 37.0 L, MCV 87.5, MCH 28.1, MCHC 32.2, RDW Std Deviation 43.0, RDW Coeff of Chris 13.4, Plt Count 558 H, MPV 8.8, Immature Gran % (Auto) 0.200, Neut % (Auto) 56.1, Lymph % (Auto) 24.2, [place] % (Auto) 15.2 H, Eos % (Auto) 3.7, Baso % (Auto) 0.6, Absolute Neuts (auto) 3.1, Absolute Lymphs (auto) 1.32, Nucleated RBC % 0 05/19/22 20:55: Sodium 142, Potassium 3.7, Chloride 106, Carbon Dioxide 28.0, Anion Gap 8, BUN 16, Creatinine 1.03, Estim Creat Clear Calc 88.66, Est GFR (MDRD) Af Amer 99, Est GFR (MDRD) Non-Af 82, BUN/Creatinine Ratio 15.5, Glucose 115 H, Calcium 9.1, Troponin I High Sens 10 05/20/22 05:30: Magnesium Cancelled 05/20/22 05:30: WBC 6.9, RBC 4.26 L, Hgb 11.6 L, Hct 36.7 L, MCV 86.2, MCH 27.2, MCHC 31.6 L, RDW Std Deviation 41.4, RDW Coeff of Chris 13.2, Plt Count 513 H, MPV 9.1 05/20/22 05:30: Sodium 139, Potassium 4.2, Chloride 107, Carbon Dioxide 24.0, Anion Gap 8, BUN 12, Creatinine 0.78, Estim Creat Clear Calc 117.08, Est GFR (MDRD) Af Amer 137, Est GFR (MDRD) Non-Af 113, BUN/Creatinine Ratio 15.4, Glucose 113 H, Calcium 8.9, Magnesium 2.4, Total Bilirubin 0.20, AST 26, ALT 40, Alkaline Phosphatase 123 H, Total Protein 6.8, Albumin 3.1 L, Globulin 3.7, Albumin/Globulin Ratio 0.8 L, Triglycerides 176, Cholesterol 200, LDL Cholesterol 129, VLDL Cholesterol 35, HDL Cholesterol 36 L, TSH 1.47 Rhythm Strip Rhythm Strip: Atrial flutter with rapid ventricular response Rate: 150 Cardiology Labs/Tests 05/19/22 20:55: WBC 5.5, RBC 4.23 L, Hgb 11.9 L, Hct 37.0 L, MCV 87.5, MCH 28.1, MCHC 32.2, Plt Count 558 H, MPV 8.8, Immature Gran % (Auto) 0.200, Neut % (Auto) 56.1, Lymph % (Auto) 24.2, [place] % (Auto) 15.2 H, Eos % (Auto) 3.7, Baso % (Auto) 0.6, Absolute Neuts (auto) 3.1, Nucleated RBC % 0 05/19/22 20:55: Sodium 142, Potassium 3.7, Chloride 106, Carbon Dioxide 28.0, An ion Gap 8, BUN 16, Creatinine 1.03, Est GFR (MDRD) Af Amer 99, Est GFR (MDRD) Non-Af 82, BUN/Creatinine Ratio 15.5, Glucose 115 H, Calcium 9.1 05/20/22 05:30: Magnesium Cancelled 05/20/22 05:30: WBC 6.9, RBC 4.26 L, Hgb 11.6 L, Hct 36.7 L, MCV 86.2, MCH 27.2, MCHC 31.6 L, Plt Count 513 H, MPV 9.1 05/20/22 05:30: Sodium 139, Potassium 4.2, Chloride 107, Carbon Dioxide 24.0, Anion Gap 8, BUN 12, Creatinine 0.78, Est GFR (MDRD) Af Amer 137, Est GFR (MDRD) Non-Af 113, BUN/Creatinine Ratio 15.4, Glucose 113 H, Calcium 8.9, Magnesium 2.4, Total Bilirubin 0.20, Triglycerides 176, Cholesterol 200, LDL Cholesterol 129, VLDL Cholesterol 35, HDL Cholesterol 36 L Rhythm: Atrial flutter EKG: Atrial flutter with rapid ventricular response ECHO: Stress Test: Cardiac Cath: PCI: CT Surgery: Holter monitor: EPS: PPM: CXR: Chest CT Scan: Radiography Diagnostic Testing: Radiology Impression Chest X-Ray 05/19/22 21:19 IMPRESSION: No acute cardiopulmonary pathology Electronically Signed: Asaf Lopez MD at 21:38 EST Reading Location ID and State: [facility] / [place] , Service support ,
--- NOTE | 2022-05-20 11:23 | CASEMGMT ---
Addendum entered by Albina Alejandro 05/20/22 13:56: ABEL CORREA Assessment: Face to Face with pt for initial transition planning/care coordination assessment. ABEL OCRREA introduced self and role at [facility], pt voices understanding and consents to assessment. Pt is A/O x4 and answers all questions appropriately at this time. Pt and 3 children present in room, pt agreeable to answer questions with them present. Care providers, pharmacy, and demographics verified/updated. Admitting Dx: a allytter PCP:Angel Specialists:Selin, heart surgeon; Steve, cardio; nicolás Winters Preferred [facility]acy: [facility] Insurance: [employer] Prescription Benefit: yes LNOK: Kimmy Mejia, Living Arrangements: Pt lives with and 3 sons in a single story home with a couple of steps to enter. Pt reports he is I in ADL's and denies concerns at home. Transportation: Pt drives self and denies concerns with transportation although is medically restricted to drive currently. Pt transports him during this time. DME/HHC/SNF: Pt denies having any DME in the home, previous HHC or SNF stays. Pt states no concerns with going home at time of dc. Pt states no further concerns/needs. CM to follow. Advised pt to ask CM if any further question/concerns/needs arise, voices understanding. Pt Goal: Home Plan: Home, provided pt with an [employer] savings card and explanation. Original Note: ABEL CORREA in to pt room, pt is off floor at this time. ABEL CORREA to check back for assessment.
[2022-05-20] MEDS: APIXABAN 5 MG TABLET PO ×2 (12:17→21:41)
[2022-05-20] MEDS: DULoxetine Hcl 30 MG Capsule PO (12:17)
[2022-05-20] MEDS: Pantoprazole Sodium 20 MG Tablet PO (12:17)
[2022-05-20] MEDS: Aspirin E.C. 81 MG Tablet PO (12:17)
[2022-05-20] MEDS: Metoprolol Tartrate 25 MG Tablet PO (17:03)
[2022-05-20] MEDS: traZODone 50 MG Tablet PO (21:41)
[2022-05-21] VITALS (11 sets, daily range): BP systolic 86–121; BP diastolic 58–74; PULSE 67–88; RESP 14–26; TEMP 36.7–37; O2SAT 94–96
[2022-05-21] MEDS: DULoxetine Hcl 30 MG Capsule PO (08:51)
[2022-05-21] MEDS: Aspirin E.C. 81 MG Tablet PO (08:51)
[2022-05-21] MEDS: Pantoprazole Sodium 20 MG Tablet PO (08:52)
[2022-05-21] MEDS: APIXABAN 5 MG TABLET PO (08:52)
[2022-05-21] MEDS: Metoprolol Tartrate 25 MG Tablet PO (08:52)
--- NOTE | 2022-05-21 10:04 | PN.CARD_ITS ---
Subjective Subjective Denies any complaints. Maintaining normal sinus rhythm. Objective Data Vital Signs: Vital Signs Temp Pulse Resp BP Pulse Ox O2 Del Method 98.1 F 88 14 118/65 95 Room Air 05/21/22 08:00 05/21/22 08:52 05/21/22 08:00 05/21/22 08:00 05/21/22 08:00 05/21/22 08:00 Oxygen Delivery Method Room Air Weight: 182 lb 1.629 oz Body Mass Index (BMI) 26.7 Intake & Output: Intake and Output for Last 24 Hours 05/19/22 05/20/22 05/21/22 23:59 23:59 23:59 Intake Total 3.5 / 3.5 1650.40 / 1667.10 133.61 / 133.61 Balance 3.5 / 3.5 1650.40 / 1667.10 133.61 / 133.61 Lab / Micro Data Result Diagrams: 05/20/22 05:30 05/20/22 05:30 Rhythm Strip Rhythm Strip: Atrial flutter with rapid ventricular response Rate: 150 Cardiology Labs/Tests Rhythm: EKG: ECHO: Stress Test: Cardiac Cath: PCI: CT Surgery: Holter monitor: EPS: PPM: CXR: Chest CT Scan: Radiography Diagnostic Testing: Radiology Impression Echocardiogram 05/20/22 01:21 Interpretation Summary Mild concentric left ventricular hypertrophy. The left ventricular ejection fraction is 65 %. Small pericardial effusion. Ordering Physician: Sonia Walton Referring Physician: Andreia Ortiz Performed By: Madisyn Huerta RCS Chest CTA 05/20/22 10:51 IMPRESSION: No demonstrated pulmonary embolism or arterial dissection. Electronically Signed: Rigoberto Leslie MD at 14:17 EST Reading Location ID and State: [facility] / [place] , Service support , Physical Exam Narrative Comfortable. No apparent distress. Heart sounds 1 and 2 normal. No murmurs or rubs noted. Chest clear to auscultation bilaterally. Abdomen soft. Alert oriented x3. No ankle edema noted. Assessment & Plan Assessment/Plan (1) Atrial flutter: PLAN: Maintaining normal sinus rhythm on amiodarone. Stop amiodarone infusion. Switch to 200 mg amiodarone p.o. daily. Continue amiodarone and Eliquis for 4 to 6 weeks. At that time we will stop the amiodarone and plan on doing a 30-day Holter monitoring. If no further A-fib/flutter, then will discontinue Eliquis as well. (2) Coronary artery disease: PLAN: Intramyocardial bridging of the LAD. Status post unroofing surgery at the [facility]. Continue metoprolol. (3) Pleural effusion: PLAN: Noted on CT chest. Status post open heart surgery. Follow as per internal medicine/pulmonology. PLAN: Plan Okay to discharge home from a cardiac standpoint. Follow as outpatient.
[2022-05-21] MEDS: Amiodarone 200 MG Tablet PO (10:05)
--- NOTE | 2022-05-21 10:32 | DS.PCM_ITS ---
Providers Date of Admission: 05/20/22 Date of Discharge: 05/21/22 Primary Care Physician: Dr. Andreia Ortiz MD Consultations 05/20/22 01:21 Consult: Cardiology Routine Consulting Provider: Asia Aguilar Reason for Consult: aflutter EMERGENT Consult: No MD Notified: Yes Date Notified: 05/20/22 Time Notified: 00:24 Method of Notification: ED Physician Initiated Reason For Visit: AFLUTTER Diagnosis Discharge Diagnosis (1) Atrial flutter: Status: Acute Code(s): I48.92 - Unspecified atrial flutter (2) Coronary artery disease: Status: Acute Code(s): I25.10 - Atherosclerotic heart disease of [place] coronary artery without angina pectoris (3) Pleural effusion: Status: Acute Code(s): J90 - Pleural effusion, not elsewhere classified Medications at Discharge Home Medications multivitamin 1 cap PO DAILY 06/24/21 sumatriptan succinate 25 mg tablet See Rx Instructions PO .COMPLEX #10 tabs 02/20/22 duloxetine 30 mg capsule,delayed release 30 mg PO DAILY #90 caps 04/06/22 hydroxyzine HCl 25 mg tablet 25 - 50 mg PO BID PRN anxiety #90 tabs 04/06/22 sildenafil 25 mg tablet 25 mg PO DAILY PRN sexual activity #30 tabs 04/25/22 acetaminophen 325 mg capsule 325 mg PO ONCE PRN Pain 05/11/22 aspirin 81 mg tablet,delayed release (Adult Low Dose Aspirin) 81 mg PO DAILY 05/11/22 metoprolol tartrate 25 mg tablet 25 mg PO BID 05/11/22 oxycodone 5 mg tablet 5 mg PO Q6H 05/11/22 pantoprazole 20 mg tablet,delayed release 20 mg PO DAILY 05/11/22 trazodone 50 mg tablet 50 mg PO QHS PRN insomnia #30 tabs 05/16/22 amiodarone 200 mg tablet 200 mg PO DAILY #30 tabs 05/21/22 apixaban 5 mg tablet (Eliquis) 5 mg PO BID #60 tabs 05/21/22 Hospital Course Operations None Procedures 2-D Echocardiogram, EKG and - (CTA of the chest) Summary of Care Provided Minutes Spent on Discharge: 36 Hospital Course: Mr. Fiore is a 46-year-old male with recent cardiac surgery by Dr. 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 He had no other concordant symptoms.? He was having PVCs of 20/min around 60s leading up to this but was not able to get a response from his trestleman despite calling him.? Dr. Aguilar was contacted by emergency department and he was given a Cardizem bolus but unfortunately his heart rate stayed elevated and he required placement on amiodarone through the night.? TSH is 1.47. An echocardiogram was performed and showed an EF of 65% with a small pericardial effusion and mild concentric LVH. CTA of his chest was performed to rule out PE mediated atrial flutter/fibrillation. CTA of the chest showed no pulmonary embolism or arterial dissection but did show moderate right pleural effusion and the patient is scheduled for upcoming thoracentesis next week. His IV amiodarone was transitioned to oral amiodarone 200 mg daily and he was placed on Eliquis on the day of admission. He fortunately converted into normal sinus rhythm and has remained there in for over 24 hours at this point. He was evaluated by cardiology this morning and they felt he was stable for discharge on the oral amiodarone and Eliquis and would like to see him within the next 2 to 4 weeks. He already has outpatient follow-up with regards to his recent cardiac surgery and for thoracentesis regarding his pleural effusion on the right side. He was discharged home in stable conditions on 05/21/2022. He is to call Dr. Aguilar's office to make an appointment with him to be seen as noted abo ve in the next 2 to 4 weeks. Prescriptions were faxed to his local pharmacy. Discharge diagnoses: Atrial flutter/fibrillation-resolved Myocardial bridging with recent cardiac surgery Right moderate oral effusion CAD Anxiety GERD ED History of migraines Insomnia? Physical Exam Const alert, oriented x3, no apparent distress, healthy appearing and well nourished Constitutional Narrative: Middle-aged, white male, sitting up in a chair at the bedside, at bedside, patient appears comfortable and nontoxic, nursing is at the bedside as well General Appearance: cooperative, comfortable, well kempt and well developed Orientation / Consciousness: awake, oriented to person, oriented to place and oriented to time Exam Limitations: no limitations HEENT normocephalic, head/scalp atraumatic and hearing grossly normal bilaterally HEENT Narrative: Mallampati 2, no thrush, dentition is good Eyes PERRL, EOMs intact bilaterally and conjunctivae normal Eyes Narrative: No scleral icterus Neck no lymphadenopathy and supple Neck Narrative: Trachea midline, no thyroid enlargement Resp normal respiratory effort, no retractions, no use of accessory muscles and clear to auscultation bilaterally Auscultation: Negative for crackles, rhonchi or wheezes Cardio regular rate, regular rhythm, S1 normal heart sound, S2 normal heart sound, no murmurs, no rub, no gallops and no clicks GI normal to inspection, nondistended, normoactive bowel sounds, soft to palpation and non-tender Extremity no clubbing, cyanosis or edema Extremity Narrative: 2+ pedal pulses Skin no rashes or lesions noted, skin turgor normal and no jaundice Neuro oriented x3, moves all extremities and no focal motor deficits Speech: speech normal Psych affect normal Psych Narrative: Very pleasant, appropriately interactive Weight / BMI Weight Weight: 82.6 kg Body Mass Index (BMI) 26.7 ABG / Lab / Microbiology Data Result Diagrams: 05/20/22 05:30 05/20/22 05:30 Radiography Diagnostic Testing: Radiology Impression Echocardiogram 05/20/22 01:21 Interpretation Summary Mild concentric left ventricular hypertrophy. The left ventricular ejection fraction is 65 %. Small pericardial effusion. Ordering Physician: Sonia Walton Referring Physician: Andreia Ortiz Performed By: Madisyn Huerta RCS Chest CTA 05/20/22 10:51 IMPRESSION: No demonstrated pulmonary embolism or arterial dissection. Electronically Signed: Rigoberto Leslie MD at 14:17 EST , D/C Instructions Discharge Diet: Low fat / Low cholesterol Discharge Activity: Return to Normal Activity Meaningful Use Info Meaningful Use Diagnoses (Choose all that apply): None applicable Discharge Plan Admission Admit Date/Time: 05/20/22 00:10 Primary Reason for Your Visit: Heart racing/palpitations Attending Provider: Nevin Patel Primary Care Provider: Andreia Ortiz Consulting Providers: Asia Aguilar ; Sonia Walton Discharge Orders/Prescriptions Prescriptions: New amiodarone 200 mg Tablet 200 mg PO DAILY Qty: 30 3RF Eliquis 5 mg Tablet 5 mg PO BID Qty: 60 3RF Continued hydroxyzine HCl 25 mg tablet 25 - 50 mg PO BID PRN (Reason: anxiety) Qty: 90 0RF duloxetine 30 mg capsule,delayed release(DR/EC) 30 mg PO DAILY Qty: 90 1RF sildenafil 25 mg tablet 25 mg PO DAILY PRN (Reason: sexual activity) Qty: 30 0RF Rx Instructions: administer 30 minutes to 4 hours before activity aspirin [Adult Low Dose Aspirin] 81 mg tablet,delayed release (DR/EC) 81 mg PO DAILY acetaminophen 325 mg capsule 325 mg PO ONCE PRN (Reason: Pain) pantoprazole 20 mg tablet,delayed release (DR/EC) 20 mg PO DAILY oxycodone 5 mg tablet 5 mg PO Q6H metoprolol tartrate 25 mg tablet 25 mg PO BID multivitamin Capsule 1 cap PO DAILY sumatriptan succinate 25 mg tablet See Rx Instructions PO .COMPLEX Qty: 10 1RF Rx Instructions: take 1 tab at onset of headache; if no relief may repeat 1 tab after at least 2 hrs; max = 4 tabs/24 hr PO trazodone 50 mg tablet 50 mg PO QHS PRN (Reason: insomnia) Qty: 30 1RF Discontinued potassium chloride 20 mEq tablet,ER particles/crystals 20 meq PO DAILY Referrals / Follow Up: Asia Aguilar MD [Med Staff - Active Staff] - See Referral Note (Call tomorrow to make an appointment to be seen within the next 2 to 4 weeks) Andreia Ortiz MD [Primary Care Provider] - Within 1 Month Disposition Disposition (needs filled in before D/C Order can be placed): Home, Self Care Charges/Coding Visit Charges Inpatient E&M: 78605 Disch Hosp >30min
== END 2022-05-21 11:03 | disposition home or self-care (01) | DRG 309 ==
LOC: ED 21:52 → PCU 05-20 00:23
PROVIDERS: Admitting Provider Internal Medicine; Emergency Provider Emergency Medicine; PCP Internal Medicine; Visit Provider Internal Medicine
DX: I48.92 Unspecified atrial flutter (principal); J90 Pleural effusion, not elsewhere classified; Q24.5 Malformation of coronary vessels; E11.9 Type 2 diabetes mellitus without complications; I25.10 Atherosclerotic heart disease of native coronary artery without angina pectoris; E78.5 Hyperlipidemia, unspecified; F41.9 Anxiety disorder, unspecified; K21.9 Gastro-esophageal reflux disease without esophagitis; Z82.3 Family history of stroke; G47.00 Insomnia, unspecified; I49.3 Ventricular premature depolarization
CPT/HCPCS: 71045; 71275; 80048; 80053; 80061; 83735; 84443; 84484; 85025; 85027; 93005; 93306; 94668; 99252; 99285; J7040; J7050; Q9957; Q9967; A4216; G0463; J0153

== ENCOUNTER → 2022-05-29 | Outpatient (CLI) | payer OTHER, SELFPAY ==
--- NOTE | 2022-05-29 07:36 | US_ITS ---
STUDY: SUPERFICIAL ULTRASOUND - RIGHT PLEURAL CAVITY. REASON FOR EXAM: Male, 46 years old. PLEURAL EFFUSION TECHNIQUE: A superficial ultrasound was performed with real-time and static duque-scale imaging. COMPARISON: None. FINDINGS: Not enough fluid for safe thoracentesis. US/Chest IMPRESSION: Not enough fluid for a safe thoracentesis. Electronically Signed: Soham Cobian MD at 14:48 EST ,
== END | disposition home or self-care (01) ==
PROVIDERS: PCP Internal Medicine; Referring Provider Internal Medicine Pulmonary Disease; Visit Provider Internal Medicine Pulmonary Disease
DX: J90 Pleural effusion, not elsewhere classified (principal)
CPT/HCPCS: 76604

== ENCOUNTER 2022-06-11 17:30 | Emergency (ER) | payer OTHER, SELFPAY ==
[2022-06-11] VITALS (9 sets, daily range): BP systolic 107–130; BP diastolic 74–92; PULSE 74–140; RESP 16–18; TEMP 36.5; O2SAT 95–97; BMI 27.6
--- NOTE | 2022-06-11 18:01 | EKG12_ITS ---
Test Reason : Blood Pressure : / mmHG Vent. Rate : 134 BPM Atrial Rate : 268 BPM P-R Int : 000 ms QRS Dur : 068 ms QT Int : 286 ms P-R-T Axes : 219 081 212 degrees QTc Int : 427 ms Atrial flutter with 2:1 A-V conduction ST & T wave abnormality, consider anterolateral ischemia Abnormal ECG Confirmed by KALYN ALARCON, NAE ([id number]), sound editor VIRGINIA BALLARD ([id number]) on 06/12/2022 1:55:53 PM Referred By: JESENIA Confirmed By:NAE MCCAIN MD
--- NOTE | 2022-06-11 19:10 | EKG12_ITS ---
Test Reason : CONVERSION Blood Pressure : / mmHG Vent. Rate : 086 BPM Atrial Rate : 086 BPM P-R Int : 180 ms QRS Dur : 076 ms QT Int : 324 ms P-R-T Axes : 066 081 180 degrees QTc Int : 387 ms Normal sinus rhythm Inferior infarct , age undetermined ST & T wave abnormality, consider anterolateral ischemia Abnormal ECG Confirmed by KALYN ALARCON, NAE ([id number]), supervising editor news reel VIRGINIA BALLARD ([id number]) on 06/12/2022 2:00:52 PM Referred By: Confirmed By:NAE MCCAIN MD
[2022-06-11] MEDS: Etomidate 20 MG/10 ML Vial 10 MG IV (19:16)
--- NOTE | 2022-06-11 20:01 | EX.ED.DYSGE1 ---
HPI History of Present Illness Chief Complaint: Palpitations Informant: patient Onset/Context/Timing Onset: Today Context: Sudden Onset Timing: Continuous Quality: Fluttering Location: heart Current Severity: Moderate Maximum Severity: Moderate Worsened by: nothing Relieved by: nothing Associated Symptoms Associated Symptoms: none Narrative Narrative: Patient has had fluttering and racing heartbeat all day today, started suddenly at rest, feels similar to when he was in atrial flutter 3 weeks ago, he was admitted here to the hospital anticoagulated, put on multiple drips, eventually spontaneously converted. He had an unroofing surgery for an intramyocardial bridging of the LAD at [facility] within the past 1-2 months. Since being home for the past 3 weeks he has been on amiodarone 200 mg daily in addition to his other medications, and Eliquis. He denies any chest pain, lightheadedness or syncope, or dyspnea. Patient took extra dose of metoprolol 25 mg prior to coming here. [facility] Medical History Anxiety Atrial flutter Back pain Back problem Cancer Cardiology follow-up encounter Chronic back pain Coronary artery disease Diabetes History of echocardiogram History of stress test Hyperglycemia Hyperlipemia Hypertriglyceridemia Injury of back Non-smoker Occult blood positive stool Postop check Postoperative complication Scrotal pain Seasonal allergies Skin cancer Home Medications multivitamin 1 cap PO DAILY 06/24/21 [History Last Taken Unknown] sumatriptan succinate 25 mg tablet See Rx Instructions PO .COMPLEX #10 tabs 02/20/22 [Rx Last Taken Unknown] duloxetine 30 mg capsule,delayed release 30 mg PO DAILY #90 caps 04/06/22 [Rx Last Taken Unknown] hydroxyzine HCl 25 mg tablet 25 - 50 mg PO BID PRN anxiety #90 tabs 04/06/22 [Rx Last Taken Unknown] sildenafil 25 mg tablet 25 mg PO DAILY PRN sexual activity #30 tabs 04/25/22 [Rx Last Taken Unknown] acetaminophen 325 mg capsule 325 mg PO ONCE PRN Pain 05/11/22 [History Last Taken Unknown] aspirin 81 mg tablet,delayed release (Adult Low Dose Aspirin) 81 mg PO DAILY 05/11/22 [History Last Taken Unknown] metoprolol tartrate 25 mg tablet 25 mg PO BID 05/11/22 [History Last Taken Unknown] oxycodone 5 mg tablet 5 mg PO Q6H 05/11/22 [History Last Taken Unknown] pantoprazole 20 mg tablet,delayed release 20 mg PO DAILY 05/11/22 [History Last Taken Unknown] trazodone 50 mg tablet 50 mg PO QHS PRN insomnia #30 tabs 05/16/22 [Rx Last Taken Unknown] apixaban 5 mg tablet (Eliquis) 5 mg PO BID #60 tabs 05/21/22 [Rx Last Taken Unknown] amiodarone 200 mg tablet 400 mg PO DAILY #60 tabs 06/11/22 [Rx Last Taken Unknown] Allergy/AdvReac Type Severity Reaction Status Date / Time No Known Allergies Allergy Verified 06/11/22 17:33 Family History Grandmother Cancer Mother CVA (cerebral vascular accident) Hypertension Father Hypertension Hyperlipemia Surgical History History of cardiac catheterization Hx of LASIK Hx of lumbar discectomy Social History Smoking Status: Never smoker alcohol intake: never substance use type: does not use what type of physical activity do you participate in: none ROS ROS ED Constitutional Constitutional ED: Denies chills or fever(s) Eyes Eyes: Denies change in vision or diplopia ENT ENT ED: Denies rhinorrhea or sore throat Cardiovascular Cardiovascular: Reports palpitations and racing heartbeat; Denies chest pain Respiratory/Chest Respiratory/Chest: Denies cough or dyspnea Gastrointestinal Gastrointestinal: Denies abdominal pain, diarrhea, nausea or vomiting Genitourinary Genitourinary ED: Denies dysuria or hematuria Musculoskeletal Musculoskeletal: Denies back pain or neck pain Integumentary Denies abscess or rash Neurologic Neurologic: Denies headache(s), paresthesias or weakness Psychiatric Psychiatric: Denies anxiety or suicidal thoughts EXAM Physical Exam Const Vital Signs: 06/11/22 17:31 06/11/22 17:47 06/11/22 19:05 Temperature 97.7 F L Temperature Source Temporal Pulse Rate 134 H 140 H Pulse Rate [1 (Initial Baseline)] Respiratory Rate 18 16 Respiratory Rate [1 (Initial Baseline)] Respiratory Effort Normal Non-Labored Blood Pressure 130/91 H 120/92 H Blood Pressure [1 (Initial Baseline)] Blood Pressure Mean 104 Pulse Ox 96 95 Oxygen Delivery Method Room Air Room Air Oxygen Delivery Method [1 (Initial Baseline)] 06/11/22 19:05 06/11/22 19:07 06/11/22 19:10 Temperature Temperature Source Pulse Rate 140 H Pulse Rate [1 (Initial Baseline)] 88 Respiratory Rate 16 Respiratory Rate [1 (Initial Baseline)] 16 Respiratory Effort Blood Pressure 120/92 H Blood Pressure [1 (Initial Baseline)] 120/83 H Blood Pressure Mean 101 Pulse Ox 95 Oxygen Delivery Method Room Air Room Air Oxygen Delivery Method [1 (Initial Baseline)] Room Air 06/11/22 20:09 06/11/22 19:15 06/11/22 19:20 Temperature Temperature Source Pulse Rate 77 Pulse Rate [1 (Initial Baseline)] Respiratory Rate 18 Respiratory Rate [1 (Initial Baseline)] Respiratory Effort Blood Pressure 107/74 Blood Pressure [1 (Initial Baseline)] Blood Pressure Mean 85 Pulse Ox 97 Oxygen Delivery Method Room Air Room Air Room Air Oxygen Delivery Method [1 (Initial Baseline)] 06/11/22 19:25 06/11/22 20:25 Temperature Temperature Source Pulse Rate 74 Pulse Rate [1 (Initial Baseline)] Respiratory Rate 18 Respiratory Rate [1 (Initial Baseline)] Respiratory Effort Blood Pressure 107/78 Blood Pressure [1 (Initial Baseline)] Blood Pressure Mean Pulse Ox 96 Oxygen Delivery Method Room Air Oxygen Delivery Method [1 (Initial Baseline)] Positive well nourished and well developed General Appearance ED: well developed and NAD HEENT Reports moist mucous membranes normocephalic and atraumatic Eyes PERRL and EOMs intact bilaterally Neck full ROM and supple Resp normal respiratory effort and clear to auscultation bilaterally Cardio regular rate and no murmurs Rate: tachycardic GI non-tender and non-distended Auscultation: normoactive bowel sounds Palpation: soft Back/Spine no CVA tenderness General Back: other FROM Extremity normal to inspection General Extremety ED: Negative for edema, pulses abnormal or tenderness General Extremity: Negative for edema or pulses abnormal Neuro oriented x3, CN's II-XII intact bilaterally and no sensory deficits noted Sensorium / Orientation: awake and alert Motor Exam: strength 5/5 throughout Skin no rashes or lesions noted and no wounds MDM MDM MDM Narrative Medical decision making narrative: Patient indicates he may have had SVT in the past, unknown if this means he had AVNRT or not. I performed a modified Valsalva maneuver, it was ineffective, and did not change his rhythm. I discussed with cardiology, he agree that it would be reasonable for me to cardiovert the patient and the patient was comfortable with that we discussed the pros and cons. This was successful, the patient was asymptomatic afterwards, and stable for discharge home. Cardiology recommends outpatient follow-up with electrophysiology, he is already established at [facility] so he will go there, and agrees with doubling his amiodarone from 200 to 400 mg once daily. 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 Rhythm Strip Rhythm Strip: aflutter Rate: 136 Ectopy: None EKG Initial EKG: Attestation: I personally reviewed and interpreted this EKG as follows: Interpretation: No Acute Injury Pattern and Atrial Flutter Follow-up EKG: Attestation: I personally reviewed and interpreted this EKG as follows: Interpretation: Sinus Rhythm, No Acute Injury Pattern and Inverted T-Waves (diffuse) Prior EKG tracings: available for review (Last EKG prior to this visit was when patient had atrial flutter, has had no other EKG in sinus rhythm after his recent heart surgery to compare to) Management Discussion w/another healthcare provider: Senior Director Finance (Dr. Aguilar, cardiology) Procedures Procedural Sedation 1 (Initial Baseline): Consent Signed: Yes Any Problems With Anesthesia: No Sedation medication: Etomidate Dose: 10 Route: IV Total Moderate Sedation Units: 13 Mallampati Score: Class I ASA Classification: I Comment:: Good sedation obtained while patient on monitor, IV fluids, oxygen had been n.p.o. for 6 hours. Recovered uneventfully no complications tolerated well. Other Procedures Procedure(s): Synchronized electrocardioversion: Pads placed anterior posteriorly, synchronized cardioversion biphasic 50 J performed once, successful, tolerated well without complication. Repeat EKG confirms sinus rhythm. Critical Care Time Critical Care Time: Yes Critical care time (excluding procedures): 30-74 minutes (32 min, not including procedures), Including time spent:, Discussing w/Patient &/or Family/Supply Officer, Discussing w/Consultants and Performing Direct Patient Care at Bedside Discharge Plan Triage Chief Complaint: Palpitations ED Provider: Jovan Grace Dx/Rx/DC Orders Clinical Impression: Atrial flutter with rapid ventricular response Instructions: ED Atrial Flutter Prescriptions: Continued hydroxyzine HCl 25 mg tablet 25 - 50 mg PO BID PRN (Reason: anxiety) Qty: 90 0RF duloxetine 30 mg capsule,delayed release(DR/EC) 30 mg PO DAILY Qty: 90 1RF sildenafil 25 mg tablet 25 mg PO DAILY PRN (Reason: sexual activity) Qty: 30 0RF Rx Instructions: administer 30 minutes to 4 hours before activity aspirin [Adult Low Dose Aspirin] 81 mg tablet,delayed release (DR/EC) 81 mg PO DAILY acetaminophen 325 mg capsule 325 mg PO ONCE PRN (Reason: Pain) pantoprazole 20 mg tablet,delayed release (DR/EC) 20 mg PO DAILY oxycodone 5 mg tablet 5 mg PO Q6H metoprolol tartrate 25 mg tablet 25 mg PO BID multivitamin Capsule 1 cap PO DAILY Eliquis 5 mg Tablet 5 mg PO BID Qty: 60 3RF sumatriptan succinate 25 mg tablet See Rx Instructions PO .COMPLEX Qty: 10 1RF Rx Instructions: take 1 tab at onset of headache; if no relief may repeat 1 tab after at least 2 hrs; max = 4 tabs/24 hr PO trazodone 50 mg tablet 50 mg PO QHS PRN (Reason: insomnia) Qty: 30 1RF Changed amiodarone 200 mg Tablet 400 mg PO DAILY Qty: 60 0RF Primary Care Provider: Andreia Ortiz Referrals: [facility] Clinical Nurse Specialist, your [Other] - As soon as possible Andreia Ortiz MD [Primary Care Provider] - Disposition Disposition: Home, Self Care Discharge Date/Time: 06/11/22 20:34
== END 2022-06-11 20:34 | disposition home or self-care (01) ==
PROVIDERS: Emergency Provider Emergency Medicine; PCP Internal Medicine; Visit Provider Emergency Medicine
DX: I48.92 Unspecified atrial flutter (principal); E11.9 Type 2 diabetes mellitus without complications; E78.5 Hyperlipidemia, unspecified; M54.9 Dorsalgia, unspecified; I25.10 Atherosclerotic heart disease of native coronary artery without angina pectoris; G89.29 Other chronic pain
CPT/HCPCS: 93005; 99283; J7030; A4216

== ENCOUNTER → 2023-05-04 | Outpatient (CLI) | payer OTHER, SELFPAY ==
[2023-05-04 09:35] LABS: Absolute Lymphocyte Count 0.91 X10^3/uL (0.83-4.51); Basophil# 0.02 X10^3/uL; Basophil% 0.3 % (0-1); Eosinophil# 0.08 X10^3/uL; Eosinophils% 1.4 % (0-5); Hematocrit 44.5 % (40-54); Hemoglobin 14.1 g/dL (13.0-16.5); Lymphocyte # 0.91 X10^3/ul (0.83-4.51); Lymphocyte % 15.7 % (19-41); Mean Corp Hgb Conc 31.7 g/dL (32-36); Mean Corpuscular Hgb 28.1 pg (27.0-32.0); Mean Corpuscular Volume 88.6 fL (80-94); Mean Platelet Vol. 9.5 fl (6.2-12.0); Monocyte# 0.74 X10^3/uL; Monocyte% 12.8 % (0-10); NRBC Flagged by Analyzer 0 % (0-5); Neutrophil # 4.01 X10^3/uL (2.7-7.7); Neutrophil % 69.5 % (47-70); Platelet Count 298 K/mm3 (150-450); RBC Distribution Width CV 12.7 % (11.6-14.6); RBC Distribution Width SD 41.7 fl (35.1-43.9); Red Blood Count 5.02 M/mm3 (4.6-6.2); White Blood Count 5.8 K/mm3 (4.4-11.0)
[2023-05-04 10:03] LABS: Vitamin B12 607 pg/mL (211-911); Vitamin D,25 Hydroxy 38.3 ng/mL
[2023-05-04 10:09] LABS: ALB/GLOB Ratio 1.1 RATIO (0.9-2.4); AST(SGOT) 26 U/L (15-37); Alanine Aminotransfer ALT/SGPT 50 U/L (16-61); Albumin, Serum 4.1 g/dL (3.2-5.0); Alkaline Phosphatase 94 U/L (45-117); Anion Gap 3 (5-15); BUN 16 mg/dL (7-18); BUN/Creat Ratio 15.8 RATIO (10-20); Calcium,Total 9.3 mg/dL (8.5-10.1); Chloride 103 mmol/L (98-107); Cholesterol 158 mg/dL (200); Creatinine, Serum 1.01 mg/dL (0.70-1.30); EST Glomerular Filtration Rate 84 mL/min (>60); Est Glom Filt Rate - Afr Amer 101 mL/min (>60); Globulin 3.7 g/dL (2.2-4.2); Glucose 106 mg/dL (74-106); High Density Lipoprotein 41 mg/dL; PSA,Total- Diagnostic 0.57 ng/mL (0.0-4.0); Potassium 3.8 mmol/L (3.5-5.1); Protein, Total 7.8 g/dL (6.4-8.2); Sodium Level 135 mmol/L (136-145); Thyroid Stim Hormone (TSH) 1.28 uIU/mL (0.358-3.74); Triglycerides 137 mg/dL; Very Low Density Lipoprotein 27 mg/dL (5-40)
[2023-05-11 10:09] LABS: Testosterone, % Free 2.23 % (1.50-4.20); Testosterone, Free 7.29 ng/dL (5.00-21.00); Testosterone, Total 327 ng/dL (264-916)
== END | disposition home or self-care (01) ==
LOC: LAB 08:51
PROVIDERS: PCP Nurse Practitioner Family; Referring Provider Nurse Practitioner Family; Visit Provider Nurse Practitioner Family
DX: N52.9 Male erectile dysfunction, unspecified (principal); E55.9 Vitamin D deficiency, unspecified
CPT/HCPCS: 36415; 80053; 80061; 82306; 82607; 84153; 84402; 84403; 84443; 85025

== ENCOUNTER → 2024-03-13 | Outpatient (CLI) | payer OTHER, SELFPAY ==
[2024-03-13 13:00] LABS: Vitamin B12 590 pg/mL (211-911); Vitamin D,25 Hydroxy 28.5 ng/mL
[2024-03-13 13:10] LABS: Cholesterol 267 mg/dL (200); High Density Lipoprotein 42 mg/dL; Triglycerides 261 mg/dL; Very Low Density Lipoprotein 52 mg/dL (5-40)
[2024-03-18 10:07] LABS: Testosterone, % Free 2.78 % (1.50-4.20); Testosterone, Free 9.76 ng/dL (5.00-21.00); Testosterone, Total 351 ng/dL (264-916)
== END | disposition home or self-care (01) ==
LOC: VSLAB 08:56
PROVIDERS: PCP Nurse Practitioner Family; Visit Provider Nurse Practitioner Family
DX: E55.9 Vitamin D deficiency, unspecified (principal); E78.5 Hyperlipidemia, unspecified
CPT/HCPCS: 36415; 80061; 82306; 82607; 84402; 84403; 84443